=== PATIENT | male | born 1970 | race Caucasian/White ===

== ENCOUNTER 2020-06-26 14:35 | Emergency (ER) | payer OTHER, SELFPAY ==
[2020-06-26 15:52] VITALS: BP 138/78; PULSE 89; RESP 18; TEMP 36.7; O2SAT 98; BMI 43.5
--- NOTE | 2020-06-26 16:32 | ED.DENTAL ---
HPI - Dental/Oral General Chief complaint: Dental/Oral Stated complaint: dental pain Time Seen by Provider: 06/26/20 16:32 Source: patient Mode of arrival: ambulatory Limitations: no limitations History of Present Illness HPI Narrative: 50 y/o male presenting with right upper tooth pain after eating chips today. He states he thinks he has a chip stuck in his tooth or he cracked a filling. He tried to floss in between the teeth but it only caused bleeding. He called his dentist but they were closed today. MD Complaint: tooth pain Location: Tooth # (2) Onset (ago): hour(s) (6) Duration: constant Severity: moderate Relieving factors: nothing Exacerbating factors: nothing Context: history of dental caries, trauma (mechanism) (eating sharp chips ) and poor dental care Treatment prior to arrival: none Related Data Home Medications Medication Instructions Recorded Confirmed atorvastatin 40 mg tablet mg PO 06/12/20 06/12/20 blood sugar diagnostic #10 ea 06/12/20 06/12/20 clotrimazole-betamethasone 1 1 applic TOPICAL BID 06/12/20 06/12/20 %-0.05 % topical cream empagliflozin 25 mg tablet 25 mg PO DAILY 06/12/20 06/12/20 lancets 28 gauge #100 ea 06/12/20 06/12/20 sitagliptin 100 mg tablet 100 mg PO DAILY 06/12/20 06/12/20 Previous Rx's Medication Instructions Recorded cholecalciferol (vitamin D3) 50 50 mcg PO DAILY 30 Days #30 cap 05/12/20 mcg (2,000 unit) capsule gabapentin 100 mg capsule 100 mg PO BEDTIME 30 Days #30 cap 05/12/20 lisinopril 20 mg tablet 20 mg PO DAILY #30 tab 05/12/20 pioglitazone 45 mg tablet 45 mg PO DAILY 30 Days #30 tab 05/12/20 ibuprofen 600 mg PO Q8H PRN #20 tab 06/26/20 tramadol 50 mg PO Q6H PRN #10 tab 06/26/20 Allergies Allergy/AdvReac Type Severity Reaction Status Date / Time metformin Allergy Unknown Unknown Verified 06/12/20 11:33 Review of Systems Review of Systems: Constitutional: No Fever, No Chills ENT/Mouth: No sore throat, No Rhinorrhea, No Swallowing Difficulty Cardiovascular: No Chest Pain, No SO Respiratory: No Cough, No Sputum Gastrointestinal: No Nausea, No Vomiting, No Diarrhea, No abdominal Pain Skin: No Skin Lesions, No rash Neuro: No Headache Heme/Lymph: No Lymphadenopathy PMFSH Past Medical History Attestation statement: The following information was validated with the patient. Medical History Diabetes type 2, uncontrolled Diabetic neuropathy associated with type 2 diabetes mellitus Hyperlipidemia Hypertension Vitamin D deficiency Surgical History History of tonsillectomy Family History Family History (Updated 05/26/20 @ 13:54 by Lexii Link [facility]) Father Lung cancer Mother Pacemaker Maternal Grandmother Diabetes Brother CAD (coronary artery disease) Sister Hypertension Social History Social History (Updated 06/12/20 @ 11:39 by Marii Torre [facility]) Alcohol intake: never Smoking Status: Never smoker Smoked in Last 30 Days: No Use of substances other than those prescribed or required for medical reasons: No Advance Directives: No Advance Directives Information Provided: Yes Physical Exam Vital Signs: Vital Signs: Last Vital Signs Temp 98.0 F 06/26/20 15:52 Pulse 89 06/26/20 15:52 Resp 18 06/26/20 15:52 BP 138/78 06/26/20 15:52 Pulse Ox 98 06/26/20 15:52 Body Mass Index 43.5 Appearance: Alert. Oriented X3. No acute distress. HEENT: normal inspection. Lips and oral mucosa are moist and pink. upper tooth #2 with silver filling, posterior aspect with small avulsed area missing. tender to touch, no associated gingival swelling or tenderness. No palpable abscess. Respiratory: No respiratory distress. Skin: Skin warm and dry. Normal skin color. Normal skin turgor. No rashes. Neuro: Oriented X 3. Non-focal Course Course Course Narrative: 50 y/o male here with chipped tooth after eating chips. No signs of infection. He will call his dentist on Monday. Short coarse of tramadol prescribed to manage pain over the weekend. Critical Care Time Critical Care Time Critical Care Time: No Discharge Plan Discharge Clinical Impression: Fracture of tooth Qualifiers: Encounter type: initial encounter Fracture type: closed Qualified Code(s): S02.5XXA - Fracture of tooth (traumatic), initial encounter for closed fracture Patient Disposition: Home, Self-Care Instructions: Acute Dental Trauma (ED), Toothache (ED) Additional Instructions: Take the prescribed medications as needed for pain. Follow up with your dentist 1st thing on Monday. Avoid cold and hot foods. Use topical Orajel as needed for pain. Prescriptions: New ibuprofen 600 mg tablet 600 mg PO Q8H PRN (Reason: pain) Qty: 20 RF: 0 tramadol 50 mg tablet 50 mg PO Q6H PRN (Reason: pain) Qty: 10 RF: 0 No Action cholecalciferol (vitamin D3) 50 mcg (2,000 unit) capsule 50 mcg PO DAILY 30 Days Qty: 30 RF: 2 gabapentin 100 mg capsule 100 mg PO BEDTIME 30 Days Qty: 30 RF: 2 lisinopril 20 mg tablet 20 mg PO DAILY Qty: 30 RF: 2 pioglitazone 45 mg tablet 45 mg PO DAILY 30 Days Qty: 30 RF: 2 Jardiance 25 mg tablet 25 mg PO DAILY RF: 0 Januvia 100 mg tablet 100 mg PO DAILY RF: 0 atorvastatin 40 mg tablet PO RF: 0 clotrimazole-betamethasone 1-0.05 % cream 1 applic topical BID RF: 0 (DME) FreeStyle Lite Strips Strip See Rx Instructions ea Not Applicable .MEDSUPPLY Qty: 10 RF: 0 (DME) lancets 28 gauge misc See Rx Instructions ea topical QID Qty: 100 RF: 0
== END 2020-06-26 17:34 | disposition home or self-care (01) ==
PROVIDERS: Emergency Provider Emergency Medicine Emergency Medical Services; PCP Internal Medicine
DX: S02.5XXA Fracture of tooth (traumatic), initial encounter for closed fracture (principal); I10 Essential (primary) hypertension; X58.XXXA Exposure to other specified factors, initial encounter; Y93.9 Activity, unspecified; Y92.9 Unspecified place or not applicable; Y99.9 Unspecified external cause status; Z79.899 Other long term (current) drug therapy
CPT/HCPCS: 99283; 99284

== ENCOUNTER 2020-12-09 13:51 | Outpatient (REF) | payer OTHER, SELFPAY ==
--- NOTE | ~2020-12-09 | XR_ITS ---
EXAMINATION: XR HIP, LEFT CLINICAL INFORMATION: Pain COMPARISON: None TECHNIQUE: Two views of the left hip. FINDINGS: Bones and soft tissues are normal. No fracture. Alignment is anatomic. Hip joint space is maintained. XR/XR hip LT min 2V IMPRESSION: Normal left hip.
== END 2020-12-09 13:52 | disposition home or self-care (01) ==
LOC: HO.XRAY 13:51
PROVIDERS: PCP Internal Medicine; Visit Provider Internal Medicine
DX: M25.552 Pain in left hip (principal)
CPT/HCPCS: 73502

== ENCOUNTER 2020-12-14 13:39 | Outpatient (REF) | payer OTHER, SELFPAY ==
[2020-12-14 14:47] LABS: Hematocrit 45.8 % (42-52); Hemoglobin 15.4 g/dl (14.0-18.0); Mean Corpuscular HGB Conc 33.6 g/dl (31.0-36.0); Mean Corpuscular Hemoglobin 31.5 pg (27.0-33.0); Mean Corpuscular Volume 93.7 fL (80-98); Platelet Count 247 X10*3/uL (160-400); Red Blood Count 4.89 X10*6/uL (4.60-5.80); Red Cell Distribution Width 12.5 % (11.0-16.0)
[2020-12-14 15:22] LABS: Creatinine Urine 61.26 mg/dL; Microalbumin Urine < 5.0 mg/L
[2020-12-14 15:22] LABS: Alanine Aminotransferase 24 U/L (0-40); Albumin Level 4.6 g/dL (3.5-5.0); Alkaline Phosphatase 67 U/L (39-117); Anion Gap 14 (12-20); Aspartate Amino Transferase 20 U/L (5-37); Bilirubin Total 0.7 mg/dL (0.0-1.0); Blood Urea Nitrogen 28 mg/dL (9-16); Calcium 10.1 mg/dL (8.4-10.2); Carbon Dioxide 28 mmol/L (22-29); Chloride 100 mmol/L (96-108); Cholesterol 155 mg/dL; Estimated Glomerular Filt Rate > 60; Glucose Random 195 mg/dL (60-115); HDL Cholesterol 42 mg/dL; LDL Cholesterol Calculated 71 mg/dl; Potassium 4.9 mmol/L (3.3-5.1); Sodium 137 mmol/L (135-145); Total Protein 7.1 g/dL (6.5-8.0); Triglycerides 214 mg/dL
[2020-12-14 15:43] LABS: Free T4 (Free Thyroxine) 1.01 ng/dL (0.71-1.85); Thyroid Stimulating Hormone 1.57 uIU/mL (0.32-4.0); Vitamin D 25-OH Total 30.8 ng/mL (>30)
[2020-12-14 15:47] LABS: Vitamin B12 310 pg/mL (200-900)
[2020-12-15 12:01] LABS: LDL Cholesterol Direct 84 mg/dL (<100)
== END 2020-12-14 13:40 | disposition home or self-care (01) ==
LOC: HO.LAB 13:39
PROVIDERS: PCP Internal Medicine; Referring Provider Internal Medicine; Visit Provider Internal Medicine Endocrinology, Diabetes & Metabolism
DX: E11.65 Type 2 diabetes mellitus with hyperglycemia (principal); E11.40 Type 2 diabetes mellitus with diabetic neuropathy, unspecified; M25.519 Pain in unspecified shoulder; M25.559 Pain in unspecified hip; M25.569 Pain in unspecified knee; E78.5 Hyperlipidemia, unspecified; I10 Essential (primary) hypertension; E55.9 Vitamin D deficiency, unspecified; Z79.899 Other long term (current) drug therapy; Z79.84 Long term (current) use of oral hypoglycemic drugs
CPT/HCPCS: 36415; 80053; 80061; 82043; 82306; 82607; 82947; 83721; 84439; 84443; 85027; 99212

== ENCOUNTER 2022-11-07 11:53 | Outpatient (REF) | payer OTHER, SELFPAY ==
--- NOTE | ~2022-11-07 | XR_ITS ---
EXAMINATION: XR LUMBOSACRAL SPINE CLINICAL INFORMATION: Dorsalgia. COMPARISON: Radiographs dated 521. TECHNIQUE: AP and lateral views of the lumbar spine and lateral view of the lumbosacral junction. FINDINGS: There is bony demineralization. Vertebral body heights are normal. There is a mild lumbar levoscoliosis. There is mild rightward disc space narrowing at L4-L5. The remaining disc spaces are well-maintained. No acute fracture or spondylolisthesis is seen. There is multi-level mild lumbar spondylosis. The posterior elements are intact. The paravertebral soft tissues are unremarkable. XR/XR lumbar spine 2-3V IMPRESSION: 1. There is a mild lumbar levoscoliosis. 2. There is mild degenerative disc disease at L4-L5. 3. There is multi-level mild lumbar spondylosis.
== END 2022-11-07 11:54 | disposition home or self-care (01) ==
LOC: HO.XRAY 11:53
PROVIDERS: PCP Internal Medicine; Visit Provider Internal Medicine
DX: M54.9 Dorsalgia, unspecified (principal)
CPT/HCPCS: 72100

== ENCOUNTER 2023-03-23 10:26 | Outpatient (AMB) | payer OTHER, SELFPAY ==
--- NOTE | 2023-03-23 10:28 | MHC.PC.OV ---
Vital Signs 03/23/23 10:30 Height 6 ft 1 in Weight 273 lb 4 oz BMI 36.0 BP 120/60 Blood Pressure Location Rt brachial Position Sitting Pulse 100 Pulse Source Pulse Oximeter Pulse Oximetry (%) 95 Oxygen Delivery Method Room Air Intake Visit Reasons: 3M Follow up Intake Note: Patient is here to follow up on DM, Hyperlipidemia, HTN. Complaint of hip pain. Recruitment Manager Required: No Prefinish Operator: Present Accompanied by: Mother Allergies metformin Allergy (Unknown, Verified 03/23/23 10:30) Unknown Medication List - Last Reconciled 03/24/23 by Panda Carreon MD atorvastatin 40 mg PO DAILY 30 days blood sugar diagnostic ([employer]Touch Verio test strips) Freestyle lite test strips Test blood glucose 4xper day. #150 strips per 30days blood-glucose meter ([employer] BlueTouch Verio Flex Meter) to test blood glucose 4x/day cholecalciferol (vitamin D3) 50 mcg PO DAILY 30 days clotrimazole-betamethasone 1-0.05 % 1 appl topical BID 2 weeks empagliflozin (Jardiance) 25 mg PO QAM 30 days gabapentin 100 mg PO BEDTIME ibuprofen 600 mg PO Q8H PRN lancets (Total [employer] Delica Lancets) 4x/day lancets ([employer] BlueTouch SureSoft Lancing Devices) As directed Test blood glucose 4x per day. lisinopril 20 mg PO DAILY 30 days naproxen 500 mg PO BID pioglitazone 45 mg PO DAILY 30 days ProAir HFA 90 mcg/actuation (albuterol sulfate) 2 puffs inhalation Q4-6H PRN NS ProAir RespiClick 90 mcg/actuation (albuterol sulfate) 2 inhalations inhalation Q4-6H PRN NS repaglinide 0.5 mg PO .Once a day 30 days sitagliptin phosphate (Januvia) 100 mg PO DAILY tramadol 50 mg PO Q6H PRN Tobacco use date assessed: 03/23/23 Dental Screening Dental Screen Date: 03/23/23 Did you have a dental visit in the last 12 months?: Yes Did you have a dental problem in the last 6 months where you did not have access to dental care?: No Was dental information given to patient?: Patient has dentist HPI 3M Follow up HPI Details hyperlipidemia DM and HTN; complisnat with meds; due for labs [facility] Medical History (Updated 04/20/22 @ 13:15 by Panda Carreon MD) Diabetes type 2, uncontrolled Diabetic neuropathy associated with type 2 diabetes mellitus Hyperlipidemia Hypertension Vitamin D deficiency Surgical History History of tonsillectomy Family History (Updated 03/23/23 @ 10:28 by JO ANN Vazquez) Father Lung cancer Mother Pacemaker Maternal Grandmother Diabetes Brother CAD (coronary artery disease) Sister Hypertension Sister Myocardial infarction Sister Hearing problem Social History Housing: Apartment Alcohol intake: never Patient Tobacco Use Status: Never used Tobacco Tobacco use type: Cigarette e-Cigarette/Vaping Use: Never Used Second Hand Smoke Exposure: No service: No Current occupational status: unemployed and disabled Cognitive needs: No Hearing needs: No Vision needs: No Questionnaire PHQ-9 Over the last 2 weeks, how often have you been bothered by any of the following problems? Depression Screening Interpretation: Negative Source: Developed by Drs. Tony Kelly, Maricarmen eY, Jose Alvares and colleagues, with an educational osiel from [employer]. Thrive Questionnaire Date Thrive assessed: 11/07/22 Currently or been in a relationship where the following occur: no concerns reported GRICELDA-7 AMB Questionnaire GRICELDA-7 Date GRICELDA - 7 assessed: 11/07/22 Source: Developed by Drs. Tony Kelly, Maricarmen Ye, Jose Alvares and colleagues, with an educational osiel from [employer]. Review of Systems Const Denies chills, Denies headache(s) and Denies weight loss ENT Denies headache(s) Card Denies chest pain, Denies syncope, Denies irregular heart rhythm and Denies dyspnea Resp Denies chest congestion, Denies cough and Denies dyspnea GI Denies abdominal pain, Denies change in stool character, Denies nausea and Denies vomiting Musc Denies deformity and Denies joint swelling Neuro Denies syncope and Denies headache(s) Physical exam (Primary Care) Vital Signs: Last Vital Signs Pulse 100 03/23/23 10:30 BP 120/60 03/23/23 10:30 Pulse Ox 95 03/23/23 10:30 Oxygen Delivery Method Room Air 03/23/23 10:30 BMI result Body Mass Index 36.0 Tobacco/Smoking Status: Tobacco use Status Tobacco use date assessed 03/23/23 03/23/23 10:35 Patient Tobacco Use Status Never used Tobacco 03/23/23 10:35 Tobacco use type Cigarette 03/23/23 10:35 e-Cigarette/Vaping Use Never Used 03/23/23 10:35 Depression Screening Interpretation: Negative Thrive Assessment: Date of Thrive Assessment Date Thrive assessed 11/07/22 03/23/23 10:35 Currently or been in a relationship where the following occur: no concerns reported Const General: cooperative, healthy appearing and no acute distress Resp Effort & Inspection: normal respiratory effort Auscultation: clear to auscultation bilaterally Percussion: percussion normal Cardio Jugular venous distension: no JVD Rate: regular rate Rhythm: regular rhythm GI Inspection: Yes normal to inspection Assessment and Plan Assessment & Plan (1) Diabetes mellitus with coincident hypertension: Code(s): E11.9 - Type 2 diabetes mellitus without complications; I10 - Essential (primary) hypertension Plan: stable; do labs (2) Hyperlipidemia: Code(s): E78.5 - Hyperlipidemia, unspecified Qualifiers: Hyperlipidemia type: pure hypercholesterolemia Qualified Code(s): E78.00 - Pure hypercholesterolemia, unspecified Plan: stable; same meds (3) Hypertension: Code(s): I10 - Essential (primary) hypertension Qualifiers: Hypertension type: essential hypertension Qualified Code(s): I10 - Essential (primary) hypertension Plan: stable; same meds Orders: Orders Comprehensive [place]. Panel Fast 03/23/23 N28.9 - Disorder of kidney and ureter, unspecified Hemoglobin A1c 03/23/23 R73.9 - Hyperglycemia, unspecified Lipid Panel 03/23/23 E78.5 - Hyperlipidemia, unspecified Thyroid Stimulating Hormone 03/23/23 E03.9 - Hypothyroidism, unspecified Microalbumin, Random (w Creat) 03/23/23 E11.69 - Type 2 diabetes mellitus with other specified complication, E66.01 - Morbid (severe) obesity due to excess calories Complete Blood Count Auto Diff 03/23/23 D64.9 - Anemia, unspecified Coding Level of Care Code Est Pt Level 4 (17888) Diagnoses Diabetes mellitus with coincident hypertension E11.9; I10 Hyperlipidemia E78.00 Hyperlipidemia type: pure hypercholesterolemia Hypertension I10 Hypertension type: essential hypertension
[2023-03-23 10:30] VITALS: BP 120/60; PULSE 100; O2SAT 95; BMI 36.0
== END 2023-03-23 10:47 | disposition home or self-care (01) ==
PROVIDERS: PCP Internal Medicine; Visit Provider Internal Medicine
DX: E11.9 Type 2 diabetes mellitus without complications (principal); I10 Essential (primary) hypertension; E78.00 Pure hypercholesterolemia, unspecified
CPT/HCPCS: 99214

== ENCOUNTER 2023-03-23 10:56 | Outpatient (REF) | payer OTHER, SELFPAY ==
--- NOTE | ~2023-03-23 | XR_ITS ---
EXAMINATION: XR BILATERAL HIPS WITH AP PELVIS CLINICAL INFORMATION: Pain. COMPARISON: Left hip radiographs dated 07/01/2010 and 12/09/2020. TECHNIQUE: AP view of the pelvis and AP and frog-leg lateral views of each hip were obtained. FINDINGS: No fracture. There is a minimal accessory ossification center situated lateral to the left acetabular roof. Hip joint spaces are maintained. Alignment is anatomic. Sacroiliac joints and pubic symphysis are normal. No abnormal soft tissue calcifications. XR/XR hip BI w PEL1V IMPRESSION: Normal pelvis and hips.
== END 2023-03-23 10:57 | disposition home or self-care (01) ==
LOC: HO.XRAY 10:56
PROVIDERS: PCP Internal Medicine; Visit Provider Internal Medicine
DX: M25.552 Pain in left hip (principal); M25.551 Pain in right hip
CPT/HCPCS: 73521

== ENCOUNTER 2023-05-01 10:39 | Outpatient (REF) | payer OTHER, SELFPAY ==
[2023-05-01 11:12] LABS: MANUAL DIFF FLAG NO
[2023-05-01 12:02] LABS: Basophils Percent Auto 0.1 % (0-2); Eosinophils Absolute Auto 0.1 X10*3/uL (0.0-0.4); Eosinophils Percent Auto 1.3 % (0-4); Hematocrit 47.5 % (42.0-52.0); Hemoglobin 15.9 g/dl (14.0-18.0); Imm Gran Abs Auto 0.02 X10*3/uL (0.00-0.03); Imm Gran Pct Auto 0.3 % (0.0-0.4); Lymphocytes Absolute Auto 1.9 X10*3/uL (1.2-4.9); Mean Corpuscular HGB Conc 33.5 g/dl (31.0-36.0); Mean Corpuscular Hemoglobin 30.8 pg (27.0-33.0); Mean Corpuscular Volume 92.1 fL (80.0-98.0); Mean Platelet Volume 10.4 fL (9.4-12.4); Monocytes Absolute Auto 0.6 X10*3/uL (0.1-1.2); Neutrophils Absolute Auto 4.5 x10*3/uL (2.0-8.3); Neutrophils Percent Auto 63.3 % (45-73); Platelet Count 225 X10*3/uL (160-400); Red Blood Count 5.16 X10*6/uL (4.60-5.80); Red Cell Distribution Width 12.7 % (11.0-16.0); White Blood Count 7.2 X10*3/uL (4.8-10.8)
[2023-05-01 12:10] LABS: Estimated Average Glucose 160 mg/dL; Hemoglobin A1c % 7.2 % (<6.0)
[2023-05-01 12:57] LABS: Alanine Aminotransferase 17 U/L (0-40); Albumin Level 4.4 g/dL (3.5-5.0); Alkaline Phosphatase 65 U/L (39-117); Anion Gap 13 (12-20); Aspartate Amino Transferase 20 U/L (5-37); Bilirubin Total 0.9 mg/dL (0.0-1.0); Blood Urea Nitrogen 23 mg/dL (9-16); Calcium 9.3 mg/dL (8.4-10.2); Carbon Dioxide 25 mmol/L (22-29); Chloride 103 mmol/L (96-108); Cholesterol 127 mg/dL (<200); Estimated Glomerular Filt Rate > 60; Glucose Fasting 158 mg/dL (60-99); HDL Cholesterol 37 mg/dL (>40); LDL Cholesterol Calculated 70 mg/dL (<100); Potassium 4.1 mmol/L (3.3-5.1); Sodium 137 mmol/L (135-145); Total Protein 6.9 g/dL (6.5-8.0); Triglycerides 103 mg/dL (<150)
[2023-05-01 13:00] LABS: Thyroid Stimulating Hormone 1.16 uIU/mL (0.32-4.0)
[2023-05-01 13:59] LABS: Creatinine Urine 124.44 mg/dL; Microalbumin Urine < 5.0 mg/L
== END 2023-05-01 10:40 | disposition home or self-care (01) ==
LOC: HO.LAB 10:39
PROVIDERS: PCP Internal Medicine; Visit Provider Internal Medicine
DX: E66.01 Morbid (severe) obesity due to excess calories (principal); E78.5 Hyperlipidemia, unspecified; N28.9 Disorder of kidney and ureter, unspecified; D64.9 Anemia, unspecified; E03.9 Hypothyroidism, unspecified; E11.65 Type 2 diabetes mellitus with hyperglycemia
CPT/HCPCS: 36415; 80053; 80061; 82043; 82570; 83036; 84443; 85025

== ENCOUNTER 2023-11-14 13:40 | Outpatient (AMB) | payer OTHER, SELFPAY ==
[2023-11-14 13:42] VITALS: BP 146/80; PULSE 68; O2SAT 97; BMI 35.0
--- NOTE | 2023-11-14 13:42 | A.OFFPC_ITS ---
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 #150 strips per 30days blood-glucose meter ([employer] PharmaceuticalsTouch Verio Flex Meter) to test blood glucose 4x/day cholecalciferol (vitamin D3) 50 mcg PO DAILY 30 days clotrimazole-betamethasone 1-0.05 % 1 appl topical BID 2 weeks empagliflozin (Jardiance) 25 mg PO QAM 30 days gabapentin 100 mg PO BEDTIME ibuprofen 600 mg PO Q8H PRN lancets 4x/day lancets (Seam[employer]Soft Lancing Devices) As directed Test blood glucose 4x per day. lisinopril 20 mg PO DAILY 30 days naproxen 500 mg PO BID pioglitazone 45 mg PO DAILY 30 days ProAir HFA 90 mcg/actuation (albuterol sulfate) 2 puffs inhalation Q4-6H PRN NS ProAir RespiClick 90 mcg/actuation (albuterol sulfate) 2 inhalations inhalation Q4-6H PRN NS repaglinide 0.5 mg PO .Once a day 30 days sitagliptin phosphate (Januvia) 100 mg PO DAILY tramadol 50 mg PO Q6H PRN triamcinolone acetonide 0.5% 1 appl topical TID Tobacco use date assessed: 11/14/23 Dental Screening Dental Screen Date: 11/14/23 HPI medication follow up HPI Details DM hyperlipidemia and hypertension; compliant with meds REPLACED BY [facility] Medical History Hyperlipidemia Diabetes type 2, uncontrolled Diabetic neuropathy associated with type 2 diabetes mellitus Hypertension Vitamin D deficiency Surgical History History of tonsillectomy Family History Father Lung cancer Mother Pacemaker Maternal Grandmother Diabetes Brother CAD (coronary artery disease) Sister Hypertension Sister Myocardial infarction Sister Hearing problem Social History Housing: Apartment Alcohol intake: never Patient Tobacco Use Status: Never used Tobacco Tobacco use type: Cigarette e-Cigarette/Vaping Use: Never Used Second Hand Smoke Exposure: No service: No Current occupational status: unemployed and disabled Cognitive needs: No Hearing needs: No Vision needs: No Questionnaire Thrive Questionnaire Date Thrive assessed: 11/14/23 I am a: Patient What is your living situation today?: I have a steady place to live Within the past 12 months, did the food you bought not last and you didn't have the money to get more?: Never true Within the past 12 months, did you worry whether your food would run out before you got money to buy more?: Never true Do you have trouble paying for medicines?: No Do you have trouble getting transportation to medical appointments?: No Do you have trouble paying your heating and electricity bill?: No Do you have trouble taking care of your child, family member or friend?: No Do you have trouble with day-to-day activities such as bathing, preparing meals, shopping, managing finances, etc.?: No Are you currently unemployed and looking for a job?: No Are you interested in more education?: No Please select the resources that you would like help with: None Currently or been in a relationship where the following occur: no concerns reported THRIVE Score: 0 AUDIT C Alcohol Use Questionnaire (AUDIT-C) 1. How often do you have a drink containing alcohol?: Never 2. How many drinks containing alcohol do you have on a typical day when you are drinking?: 1 or 2 (none) 3. How often do you have six or more drinks on one occasion?: Never Total Score: 0 Score Reviewed/Action Taken: Yes GRICELDA-7 AMB Questionnaire GRICELDA-7 Date GRICELDA - 7 assessed: 11/14/23 Feeling nervous, anxious, or on edge: 0 = Not at all Not being able to stop or control worryin = Not at all Worrying too much about different things: 0 = Not at all Trouble relaxin = Not at all Being so restless that it is hard to sit still: 0 = Not at all Becoming easily annoyed or irritable: 0 = Not at all Feeling afraid as if something awful might happen: 0 = Not at all Total GRICELDA-7 score (0-4 normal; 5-9 mild; 10-14 moderate; 15-21 severe): 0 Source: Developed by Drs. Tony Kelly, Maricarmen Ye, Jose Alvares and colleagues, with an educational osiel from [employer]. GRICELDA-7 Assessment Billing GRICELDA-7 Assessment Tool: GRICELDA-7 Assessment 75477 Review of Systems Const Denies chills, Denies headache(s) and Denies weight loss ENT Denies headache(s) Card Denies chest pain, Denies syncope, Denies irregular heart rhythm and Denies dyspnea Resp Denies chest congestion, Denies cough and Denies dyspnea GI Denies abdominal pain, Denies change in stool character, Denies nausea and Denies vomiting Musc Denies deformity and Denies joint swelling Neuro Denies syncope and Denies headache(s) Physical exam (Primary Care) Vital Signs: Last Vital Signs Pulse 68 11/14/23 13:42 BP 146/80 H 11/14/23 13:42 Pulse Ox 97 11/14/23 13:42 Oxygen Delivery Method Room Air 11/14/23 13:42 BMI result Body Mass Index 35.0 Tobacco/Smoking Status: Tobacco use Status Tobacco use date assessed 11/14/23 11/14/23 13:44 Patient Tobacco Use Status Never used Tobacco 11/14/23 13:44 Tobacco use type Cigarette 11/14/23 13:44 e-Cigarette/Vaping Use Never Used 11/14/23 13:44 Thrive Assessment: Date of Thrive Assessment Date Thrive assessed 11/14/23 11/14/23 13:44 Currently or been in a relationship where the following occur: no concerns reported Const General: cooperative, comfortable, no acute distress and alert Neck Neck: Yes no lymphadenopathy Thyroid: Thyroid normal Resp Effort & Inspection: normal respiratory effort Auscultation: clear to auscultation bilaterally Percussion: percussion normal Cardio Jugular venous distension: no JVD Palpation: normal PMI Rate: regular rate Rhythm: regular rhythm Heart sounds: S1 normal heart sound present and S2 normal heart sound present GI Inspection: Yes normal to inspection Palpation (GI): No hepatosplenomegaly present Skin General skin exam: no rashes or lesions noted Extrem General: Yes no clubbing, cyanosis or edema Results AMB Hemoglobin A1c AMB Hemoglobin A1c 7.7 % Last Edit by JO ANN Desouza on 11/14/23 14:05 Results Reviewed Results Reviewed: Laboratory Last Values Hgb A1c (Clinic) 7.7 % (4.0-6.0) H 11/14/23 13:54 Assessment and Plan Assessment & Plan (1) Diabetes mellitus with coincident hypertension: Code(s): E11.9 - Type 2 diabetes mellitus without complications; I10 - Essential (primary) hypertension Plan: stable; same rx (2) Hyperlipidemia: Code(s): E78.5 - Hyperlipidemia, unspecified Qualifiers: Hyperlipidemia type: pure hypercholesterolemia Qualified Code(s): E78.00 - Pure hypercholesterolemia, unspecified Plan: stable; same rx (3) Hypertension: Code(s): I10 - Essential (primary) hypertension Qualifiers: Hypertension type: essential hypertension Qualified Code(s): I10 - Essential (primary) hypertension Plan: stable; same rx Orders: Orders Lipid Panel 11/14/23 Z13.220 - Encounter for screening for lipoid disorders Complete Blood Count Auto Diff 11/14/23 Z13.0 - Encounter for screening for diseases of the blood and blood-forming organs and certain disorders involving the immune mechanism Hemoglobin A1c 11/14/23 R73.9 - Hyperglycemia, unspecified AMB Hemoglobin A1c 11/14/23 E11.42 - Type 2 diabetes mellitus with diabetic polyneuropathy Thyroid Stimulating Hormone 11/14/23 Z13.29 - Encounter for screening for other suspected endocrine disorder Comprehensive [place]. Panel Fast 11/14/23 Z13.9 - Encounter for screening, unspecified Coding Level of Care Code Est Pt Level 4 (27260) Diagnoses Diabetes mellitus with coincident hypertension E11.9; I10 Pure hypercholesterolemia E78.00 Hyperlipidemia type: pure hypercholesterolemia Essential hypertension I10 Hypertension type: essential hypertension Additional Codes GRICELDA-7 Assessment Billing - GRICELDA-7 Assessment Tool: GRICELDA-7 Assessment [id number] ([id number])
== END 2023-11-14 14:02 | disposition home or self-care (01) ==
PROVIDERS: PCP Internal Medicine; Visit Provider Internal Medicine
DX: E11.42 Type 2 diabetes mellitus with diabetic polyneuropathy (principal)
CPT/HCPCS: 83036; 99214

== ENCOUNTER 2024-01-09 10:27 | Outpatient (REF) | payer OTHER, SELFPAY ==
[2024-01-09 10:44] LABS: MANUAL DIFF FLAG NO
[2024-01-09 11:09] LABS: Basophils Percent Auto 0.4 % (0-2); Eosinophils Absolute Auto 0.2 X10*3/uL (0.0-0.4); Eosinophils Percent Auto 2.4 % (0-4); Hematocrit 47.4 % (42.0-52.0); Hemoglobin 16.1 g/dl (14.0-18.0); Imm Gran Abs Auto 0.02 X10*3/uL (0.00-0.03); Imm Gran Pct Auto 0.3 % (0.0-0.4); Lymphocytes Absolute Auto 2.2 X10*3/uL (1.2-4.9); Lymphocytes Percent Auto 27.7 % (20-40); Mean Corpuscular Hemoglobin 30.9 pg (27.0-33.0); Monocytes Absolute Auto 0.6 X10*3/uL (0.1-1.2); Monocytes Percent Auto 7.1 % (2-11); Neutrophils Percent Auto 62.1 % (45-73); Platelet Count 246 X10*3/uL (160-400); Red Blood Count 5.21 X10*6/uL (4.60-5.80); Red Cell Distribution Width 12.3 % (11.0-16.0)
[2024-01-09 11:16] LABS: Estimated Average Glucose 174 mg/dL; Hemoglobin A1c % 7.7 % (<6.0)
[2024-01-09 12:26] LABS: Alanine Aminotransferase 19 U/L (0-40); Albumin Level 4.5 g/dL (3.5-5.0); Alkaline Phosphatase 81 U/L (39-117); Anion Gap 13 (12-20); Aspartate Amino Transferase 21 U/L (5-37); Bilirubin Total 0.5 mg/dL (0.0-1.0); Blood Urea Nitrogen 19 mg/dL (9-16); Calcium 9.9 mg/dL (8.4-10.2); Carbon Dioxide 28 mmol/L (22-29); Chloride 103 mmol/L (96-108); Cholesterol 146 mg/dL (<200); Estimated Glomerular Filt Rate > 60; Glucose Fasting 207 mg/dL (60-99); HDL Cholesterol 37 mg/dL (>40); LDL Cholesterol Calculated 79 mg/dL (<100); Potassium 4.8 mmol/L (3.3-5.1); Sodium 139 mmol/L (135-145); Thyroid Stimulating Hormone 1.78 uIU/mL (0.32-4.0); Total Protein 7.4 g/dL (6.5-8.0); Triglycerides 151 mg/dL (<150)
== END 2024-01-09 10:28 | disposition home or self-care (01) ==
LOC: HO.LAB 10:27
PROVIDERS: PCP Internal Medicine; Visit Provider Internal Medicine
DX: Z13.220 Encounter for screening for lipoid disorders (principal); Z13.0 Encounter for screening for diseases of the blood and blood-forming organs and certain disorders involving the immune mechanism; R73.9 Hyperglycemia, unspecified; Z13.29 Encounter for screening for other suspected endocrine disorder; Z13.9 Encounter for screening, unspecified
CPT/HCPCS: 36415; 80053; 80061; 83036; 84443; 85025

== ENCOUNTER 2024-01-29 13:35 | Outpatient (AMB) | payer OTHER, SELFPAY ==
[2024-01-29 13:36] VITALS: BP 126/72; PULSE 90; O2SAT 95; BMI 34.6
--- NOTE | 2024-01-29 13:36 | MHC.PC.OV ---
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: No Spooling Operator: Not Required per policy Accompanied by: Self / Same As Patient Allergies metformin Allergy (Unknown, Verified 01/29/24 13:36) Unknown Tobacco use date assessed: 11/14/23 Dental Screening Dental Screen Date: 11/14/23 HPI follow up HPI Details Diabetes; htn and hyperlipidemia; poor compliance; PFSH Medical History Hyperlipidemia Diabetes type 2, uncontrolled Diabetic neuropathy associated with type 2 diabetes mellitus Hypertension Vitamin D deficiency Surgical History History of tonsillectomy Family History Father Lung cancer Mother Pacemaker Maternal Grandmother Diabetes Brother CAD (coronary artery disease) Sister Hypertension Sister Myocardial infarction Sister Hearing problem Social History Housing: Apartment Alcohol intake: never Patient Tobacco Use Status: Never used Tobacco Tobacco use type: Cigarette e-Cigarette/Vaping Use: Never Used Second Hand Smoke Exposure: No service: No Current occupational status: unemployed and disabled Cognitive needs: No Hearing needs: No Vision needs: No Questionnaire PHQ-9 Over the last 2 weeks, how often have you been bothered by any of the following problems? 1. Little interest or pleasure in doing things: not at all 2. Feeling down, depressed, or hopeless: not at all 3. Trouble falling or staying asleep, or sleeping too much: not at all 4. Feeling tired or having little energy: not at all 5. Poor appetite or overeating: not at all 6. Feeling bad about yourself - or that you are a failure or have let yourself or your family down: not at all 7. Trouble concentrating on things, such as reading the newspaper or watching television: not at all 8. Moving or speaking so slowly that other people could have noticed. Or the opposite - being so fidgety or restless that you have been moving around a lot more than usual: not at all 9. Thoughts that you would be better off or of hurting yourself in some way: not at all Total score: 0 Source: Developed by Drs. Tony Kelly, Maricarmen Ye, Jose Alvares and colleagues, with an educational osiel from [employer]. Thrive Questionnaire Date Thrive assessed: 11/14/23 GRICELDA-7 AMB Questionnaire GRICELDA-7 Date GRICELDA - 7 assessed: 11/14/23 Source: Developed by Drs. Tony Kelly, Maricarmen Ye, Jose Alvares and colleagues, with an educational osiel from [employer]. Review of Systems Const Denies chills, Denies headache(s) and Denies weight loss ENT Denies headache(s) Card Denies chest pain, Denies syncope, Denies irregular heart rhythm and Denies dyspnea Resp Denies chest congestion, Denies cough and Denies dyspnea GI Denies abdominal pain, Denies change in stool character, Denies nausea and Denies vomiting Musc Denies deformity and Denies joint swelling Neuro Denies syncope and Denies headache(s) Physical exam (Primary Care) Vital Signs: Last Vital Signs Pulse 90 01/29/24 13:36 BP 126/72 01/29/24 13:36 Pulse Ox 95 01/29/24 13:36 Oxygen Delivery Method Room Air 01/29/24 13:36 BMI result Body Mass Index 34.6 Tobacco/Smoking Status: Tobacco use Status Tobacco use date assessed 11/14/23 01/29/24 13:36 Patient Tobacco Use Status Never used Tobacco 01/29/24 13:36 Tobacco use type Cigarette 01/29/24 13:36 e-Cigarette/Vaping Use Never Used 01/29/24 13:36 PHQ-9: PHQ-9 Score PHQ-9: Total score 0 01/29/24 13:36 Thrive Assessment: Date of Thrive Assessment Date Thrive assessed 11/14/23 01/29/24 13:36 Const General: cooperative, comfortable, no acute distress and alert Neck Neck: Yes no lymphadenopathy Thyroid: Thyroid normal Resp Effort & Inspection: normal respiratory effort Auscultation: clear to auscultation bilaterally Percussion: percussion normal Cardio Jugular venous distension: no JVD Palpation: normal PMI Rate: regular rate Rhythm: regular rhythm Heart sounds: S1 normal heart sound present and S2 normal heart sound present GI Inspection: Yes normal to inspection Palpation (GI): No hepatosplenomegaly present Skin General skin exam: no rashes or lesions noted Extrem General: Yes no clubbing, cyanosis or edema Assessment and Plan Assessment & Plan (1) Diabetes mellitus with coincident hypertension: Code(s): E11.9 - Type 2 diabetes mellitus without complications; I10 - Essential (primary) hypertension Plan: improve eating habits (2) Hyperlipidemia: Code(s): E78.5 - Hyperlipidemia, unspecified Qualifiers: Hyperlipidemia type: pure hypercholesterolemia Qualified Code(s): E78.00 - Pure hypercholesterolemia, unspecified Plan: stable; same rx (3) Hypertension: Code(s): I10 - Essential (primary) hypertension Qualifiers: Hypertension type: essential hypertension Qualified Code(s): I10 - Essential (primary) hypertension Plan: stable; same rx Orders: Orders Lipid Panel Today Z13.220 - Encounter for screening for lipoid disorders Glucose Fasting Today R73.9 - Hyperglycemia, unspecified Hemoglobin A1c Today R73.9 - Hyperglycemia, unspecified Coding Level of Care Code Est Pt Level 4 (39132) Diagnoses Diabetes mellitus with coincident hypertension E11.9; I10 Pure hypercholesterolemia E78.00 Hyperlipidemia type: pure hypercholesterolemia Essential hypertension I10 Hypertension type: essential hypertension
== END 2024-01-29 13:49 | disposition home or self-care (01) ==
PROVIDERS: PCP Internal Medicine; Visit Provider Internal Medicine
DX: E11.9 Type 2 diabetes mellitus without complications (principal); I10 Essential (primary) hypertension; E78.00 Pure hypercholesterolemia, unspecified
CPT/HCPCS: 99214

== ENCOUNTER 2024-03-13 09:25 | Emergency (ER) | payer OTHER, SELFPAY ==
--- NOTE | ~2024-03-13 | XR_ITS ---
EXAMINATION: XR LUMBOSACRAL SPINE CLINICAL INFORMATION: Pain COMPARISON: TECHNIQUE: Three views of the lumbosacral spine. FINDINGS: Transitional lumbosacral anatomy with presence of 6 nonrib-bearing lumbar vertebra. For the purposes of this report, the lowest lumbar vertebra is considered to represent the L5 vertebra. This vertebra has a hypertrophied right-sided transverse process that articulates with the sacrum. There is chronic rotatory levoscoliosis of the lumbar spine, apex of curvature at L3. Compared to 11/07/2022, there appears to be further decrease in the L3-L4 disc space with vacuum disc phenomenon, endplate sclerosis and anterolateral traction osteophyte formation. No acute fracture or malalignment. Incidentally noted is an old 0.8 cm calcific density projecting over the upper abdomen on the lateral radiograph. XR/XR lumbar spine 2-3V IMPRESSION: * Transitional lumbosacral anatomy. * Chronic and apparent worsening of disc degenerative change at L3-L4 level. * There is chronic rotatory levoscoliosis of the lumbar spine.
[2024-03-13 09:36] VITALS: BP 128/74; PULSE 91; RESP 18; TEMP 37; O2SAT 96; BMI 33.4
--- NOTE | 2024-03-13 09:41 | ED.GENADULT ---
HPI - General Adult General Chief complaint: Extremity Problem Stated complaint: back/hip pain Time Seen by Provider: 03/13/24 09:41 Source: patient Mode of arrival: ambulatory Limitations: no limitations History of Present Illness ED Provider: Kirti Cordoba PA-C HPI narrative: 53 year old male with PMH of diabetes Type 2, Hypertension, Hyperlipidemia and hip pain presents today with right lower back/buttocks pain that radiates to his right posterior hip. Patient denies any injury or trauma to the area. States about 2 weeks ago the pain began, and is radiating to his right hip and feels like a stabbing and sharp pain. Pain with walking, sitting, sitting to standing, and laying down. States It feels like deep muscle pain but I'm not sure . He has a history of right lower back and hip pain, and he is on naproxen 500mg in the morning and night. Has taken naproxen with no effect on pain. Denies any electricity feeling, burning, or radiculopathy down the right leg. Denies chest pain, shortness of breath, difficulty breathing, abdominal pain, nausea, vomiting, diarrhea, urinary frequency/urgency, pain with urination, tingling, loss, saddle paresthesia/numbness. Onset (ago): week(s) (2) Location: back (Right lower back to hip), pelvis (right hip) and right Radiation: back (from right lower back/buttocks to right hip) Quality: stabbing and sharp Pain Consistency: constant Relieving factors: none Exacerbating factors: movement Associated symptoms: denies other symptoms Treatments prior to arrival: NSAID (Naproxen 500mg morning and night) Related Data Previous Rx's ?Medication ?Instructions ?Recorded tramadol 50 mg tablet 50 mg PO Q6H PRN pain #10 tabs 06/26/20 ProAir HFA 90 mcg/actuation 2 puff inhalation Q4-6H PRN 08/19/20 aerosol inhaler (albuterol sulfate) shortness of breath or wheezing #8.5 grams ProAir RespiClick 90 mcg/actuation 2 inh inhalation Q4-6H PRN 08/21/20 breath activated (albuterol shortness of breath #1 ea sulfate) repaglinide 0.5 mg tablet 0.5 mg PO .Once a day 30 days #30 12/14/20 tabs lancets 28 gauge (OneTouch #150 ea 05/06/21 SureSoft Lancing Devices) blood-glucose meter (OneTouch #1 ea 05/07/21 Verio Flex Meter) ibuprofen 600 mg tablet 600 mg PO Q8H PRN pain #20 tabs 04/05/23 clotrimazole-betamethasone 1 1 appl topical BID 2 weeks #45 07/14/23 %-0.05 % topical cream grams lancets 33 gauge #100 ea 07/14/23 atorvastatin 40 mg tablet 40 mg PO DAILY 30 days #90 caps 09/14/23 triamcinolone acetonide 0.5 % 1 appl topical TID #15 grams 09/26/23 topical cream blood sugar diagnostic (OneTouch #150 ea 10/31/23 Verio test strips) empagliflozin 25 mg tablet 25 mg PO QAM 30 days #30 caps 12/08/23 (Jardiance) gabapentin 100 mg capsule 100 mg PO BEDTIME #30 caps 12/08/23 pioglitazone 45 mg tablet 45 mg PO DAILY 30 days #30 caps 01/03/24 cholecalciferol (vitamin D3) 50 50 mcg PO DAILY 30 days #30 caps 01/08/24 mcg (2,000 unit) capsule naproxen 500 mg tablet 500 mg PO BID #90 tabs 01/31/24 sitagliptin phosphate 100 mg 100 mg PO DAILY #30 tabs 02/02/24 tablet (Januvia) lisinopril 20 mg tablet 20 mg PO DAILY 30 days #90 caps 03/07/24 cyclobenzaprine 5 mg tablet 5 mg PO TID PRN back pain 7 days 03/13/24 #21 tabs Allergies Allergy/AdvReac Type Severity Reaction Status Date / Time metformin Allergy Unknown Unknown Verified 03/13/24 09:39 Review of Systems Constitutional: Constitutional: Reports no additional constitutional complaints, Denies chills, Denies fever(s) and Denies night sweats Eyes: Eyes: Reports no additional eye complaints, Denies blurry vision, Denies change in vision, Denies diplopia, Denies eye discharge, Denies loss of vision and Denies eye pain ENT: Denies dizziness Cardiovascular: Cardiovascular: Reports no additional cardiovascular complaints, Denies chest pain, Denies lightheadedness, Denies Loss of Consciousness and Denies dyspnea Respiratory: Respiratory: Reports no additional respiratory complaints and Denies dyspnea Gastrointestinal: Gastrointestinal: Reports no additional gastrointestinal complaints, Denies abdominal pain, Denies melena, Denies hematochezia, Denies change in bowel habits and Denies change in stool character Genitourinary: Genitourinary: Reports no additional male genitourinary complaints, Denies hematuria, Denies oliguria, Denies difficulty urinating, Denies dysuria, Denies urinary frequency, Denies urinary hesitancy, Denies urinary incontinence and Denies urinary urgency Musculoskeletal: Musculoskeletal: Reports as per HPI, Reports back pain, Denies numbness, Reports radiating pain into limb (ra) and Denies tingling Comments: Radiating into right hip, no numbness or tingling. Originates in right lower back/right buttocks. No vertebral column pain. Neurologic: Denies dizziness, Denies loss of vision, Denies numbness and Denies tingling Psychiatric: Psychiatric: Reports no additional psychiatric complaints Endocrine: Endocrine: Reports no additional endocrine complaints Hematologic/Lymphatic: Hematologic/Lymphatic: Reports no additional hematologic/lymphatic complaints Allergic/Immunologic: Allergic/Immunologic: Reports no additional allergic/immunologic complaints [facility] Past Medical History Attestation statement: The following information was validated with the patient. Source: old records reviewed and nursing notes reviewed Medical History Hyperlipidemia Diabetes type 2, uncontrolled Diabetic neuropathy associated with type 2 diabetes mellitus Hypertension Vitamin D deficiency Surgical History History of tonsillectomy Family History Family History Father Lung cancer Mother Pacemaker Maternal Grandmother Diabetes Brother CAD (coronary artery disease) Sister Hypertension Sister Myocardial infarction Sister Hearing problem Social History Social History Housing: Apartment Alcohol intake: never Patient Tobacco Use Status: Never used Tobacco Tobacco use type: Cigarette e-Cigarette/Vaping Use: Never Used Second Hand Smoke Exposure: No Advance Directives: No Advance Directives Information Provided: No service: No Current occupational status: unemployed and disabled Cognitive needs: No Hearing needs: No Vision needs: No Physical Exam ED Vital Signs: Vital Signs - 24 hr 08/14/24 09:36 Temperature 98.6 F Pulse Rate 91 Respiratory Rate 18 Blood Pressure 128/74 Pulse Oximetry 96 Oxygen Delivery Method Room Air BMI result Body Mass Index 33.4 Const General: cooperative, healthy appearing, alert, awake and in distress (with movement) moderate Nutritional Appearance: well nourished Orientation/consciousness: patient oriented x3 Limitations: no limitations HENMT Head: Yes normal to inspection and Yes atraumatic Ears: hearing grossly normal bilaterally and external ears normal General nose exam: Normal external nose present, no nasal discharge noted and no epistaxis Face and sinus: Yes normal facial exam, No abrasion and No laceration Mouth: Normal oral and palatal mucosa present, no drooling and no muffled voice Eyes General: appearance normal, both eyes and all related structures Periorbital: periorbital findings normal Eyelids: Yes eyelids normal Conjunctivae: conjunctivae normal Pupils: Equal, round and reactive pupils present EOM: EOMs intact bilaterally Neck Neck: Yes normal visual inspection, Yes full ROM and Yes no lymphadenopathy Chest Chest palpation & inspection: normal inspection of the chest Resp Effort & Inspection: normal respiratory effort and able to speak in complete sentences GI Inspection: Yes normal to inspection Palpation (GI): No Rebound tenderness present General: Yes no CVA tenderness Back/Spine/Pelvis Other: No lumbar spine tenderness with palpation, slight tenderness to the right paraspinal muscles in the lower lumbar/buttocks, lumbar extension/flexion/rotation is painful and pain radiates from the right lower back/buttocks to the right hip. No tingling/numbness/burning/electricity feeling with movement. ROM is intact, however is slightly limited due to pain. Pain with hip adduction/abduction/flexion/extension on the right side, ROM of hip is intact and normal. Back: no CVA tenderness Cervical Spine: normal cervical lordosis Thoracic/Lumbar Spine: thoracic and lumbar spine normal to inspection, bend over test abnormal and No lumbar spinal tenderness Skin General skin exam: no rashes or lesions noted Lesions: no lesions Rashes: no rashes Trauma: no lacerations or abrasions Wounds: no wounds Hair: normal Nails: normal Neuro General: patient oriented x3 and Normal light touch and pain sensation Cranial nerves: Yes Equal, round and reactive pupils present Cognition (Neuro): normal cognition Gait exam (Neuro): Normal gait present Motor exam (neuro): 5/5 motor strength present throughout Sensory Exam: Normal double simultaneous stimulation for sensation Pupils: Normal pupillary reactivity/response: bilateral Extrem General: Yes normal to inspection, Yes full ROM and Yes capillary refill normal Right lower extremity: normal to inspection and full ROM Left lower extremity: normal to inspection and full ROM Psych Appearance: grossly normal Mental Status: mental status grossly normal Speech and movement: Normal speech and movement present Affect: normal affect Attitude: cooperative Thought process: Normal thought process present Thought content: Normal thought content present Insight: Good insight present (Psych) Judgement: Good judgement present (Psych) Medications Administered Discontinued Medications Generic Name Dose Route Start Last Admin Trade Name Freq PRN Reason Stop Dose Admin Cyclobenzaprine HCl 5 mg 03/13/24 09:55 03/13/24 10:04 Cyclobenzaprine Hcl 5 Mg Tablet PO 03/13/24 09:56 5 mg ONCE ONE Administration Ketorolac Tromethamine 15 mg 03/13/24 09:54 03/13/24 10:04 Ketorolac Tromethamine 15 Mg/Ml Vial IM 03/13/24 09:55 15 mg ONCE ONE Administration Methylprednisolone Sodium Succinate 60 mg 03/13/24 09:55 03/13/24 10:03 Methylprednisolone Sod Succ 125 Mg/2 Ml Vial IM 03/13/24 09:56 60 mg ONCE ONE Administration Medical Decision Making Medical Decision Making [facility] Narrative: Patient is a 53 year old assigned male at with a history of DM, HTN, HLD, and hip pain presenting to the emergency department today with right sided low back pain. Patient's physical exam was as noted in the physical exam portion of this note. Patient's lumbar x-ray showed DDD but was otherwise unremarkable. I explained my physical exam findings as well as all test results to the patient. I answered all questions asked by the patient. I stressed the importance of the patient taking his medication as directed (either prescribed or as the over the counter packaging recommends). I stressed the importance of the patient following up with his primary care provider and if pain persists, a automated logistics specialist. I stressed the importance of the patient returning to the emergency department immediately if his symptoms were to worsen or if he were to develop any dizziness, shortness of breath, difficulty breathing, chest pain, blurry vision, loss of vision, nausea, vomiting, abdominal pain, fever, chills, back pain, or any other complaints. Patient verbalized agreement and understanding with this treatment plan and discharge. Differential Diagnosis Differential Diagnoses: The differential diagnosis associated with the presentation includes Muscle strain/tenderness Lumbar vertebral fracture Lumbar radiculopathy from degenerative changes Neuroforaminal stenosis DDD Admission/Observation Consideration of admission/observation: Escalation of care including admission/observation considered Patient would have been admitted to the hospital had his work up had any findings where hospital admission was appropriate and his clinical presentation warranted hospital admission. Independent Interpretation I performed an independent interpretation of an: Plain X-Ray Interpretation: My interpretation is in agreement with the radiologist's impression of this imaging study. EXAMINATION: XR LUMBOSACRAL SPINE CLINICAL INFORMATION: Pain COMPARISON: TECHNIQUE: Three views of the lumbosacral spine. FINDINGS: Transitional lumbosacral anatomy with presence of 6 nonrib-bearing lumbar vertebra. For the purposes of this report, the lowest lumbar vertebra is considered to represent the L5 vertebra. This vertebra has a hypertrophied right-sided transverse process that articulates with the sacrum. There is chronic rotatory levoscoliosis of the lumbar spine, apex of curvature at L3. Compared to 11/07/2022, there appears to be further decrease in the L3-L4 disc space with vacuum disc phenomenon, endplate sclerosis and anterolateral traction osteophyte formation. No acute fracture or malalignment. Incidentally noted is an old 0.8 cm calcific density projecting over the upper abdomen on the lateral radiograph. XR/XR lumbar spine 2-3V IMPRESSION: * Transitional lumbosacral anatomy. * Chronic and apparent worsening of disc degenerative change at L3-L4 level. * There is chronic rotatory levoscoliosis of the lumbar spine. Dictated By: Horace Proctor MD Signed By: Electronically signed by Horace Proctor MD 03/13/24 1092 Radiology Impression Discussion of test interpretation with radiology: I have reviewed the radiologist's reading. Prescription Management I considered prescription management with: Pain Medication (patient prescribed pain medication) Chronic Conditions Patient?s care impacted by: Diabetes Discharge Plan Discharge Clinical Impression: Low back pain, DDD (degenerative disc disease), lumbar Patient Disposition: Home, Self-Care Instructions: Acute Low Back Pain (ED), Degenerative Disc Disease (ED) Additional Instructions: Follow up with your primary care provider and if the pain persists, a automated logistics specialist. Return to the emergency department immediately if your symptoms worsen or if you develop any dizziness, shortness of breath, difficulty breathing, chest pain, blurry vision, loss of vision, nausea, vomiting, abdominal pain, fever, chills, back pain, or any other complaints. Prescriptions: New cyclobenzaprine 5 mg tablet 5 mg PO TID PRN (Reason: back pain) 7 Days Qty: 21 0RF No Action albuterol sulfate [ProAir HFA] 90 mcg/actuation HFA aerosol inhaler 2 puff inhalation Q4-6H PRN (Reason: shortness of breath or wheezing) Qty: 8.5 0RF ProAir RespiClick 90 mcg/actuation aerosol powdr breath activated 2 inh inhalation Q4-6H PRN (Reason: shortness of breath) Qty: 1 8RF (DME) lancets [OneTouch SureSoft Lancing Dev] 28 gauge misc See Rx Instructions topical QID Qty: 150 11RF Rx Instructions: As directed Test blood glucose 4x per day. (DME) blood-glucose meter [OneTouch Verio Flex meter] Misc See Rx Instructions .Route Qty: 1 0RF Rx Instructions: to test blood glucose 4x/day ibuprofen 600 mg tablet 600 mg PO Q8H PRN (Reason: pain) Qty: 20 0RF clotrimazole-betamethasone 1-0.05 % cream 1 appl topical BID 14 Days Qty: 45 0RF (DME) lancets 33 gauge misc See Rx Instructions .ROUTE .MEDSUPPLY Qty: 100 11RF Rx Instructions: 4x/day atorvastatin 40 mg tablet 40 mg PO DAILY 30 Days Qty: 90 2RF triamcinolone acetonide 0.5 % cream 1 appl topical TID Qty: 15 3RF (DME) OneTouch Verio test strips Strip See Rx Instructions Not Applicable .MEDSUPPLY Qty: 150 11RF Rx Instructions: Freestyle lite test strips Test blood glucose 4xper day. #150 strips per 30days Jardiance 25 mg tablet 25 mg PO QAM 30 Days Qty: 30 4RF gabapentin 100 mg capsule 100 mg PO BEDTIME Qty: 30 3RF pioglitazone 45 mg tablet 45 mg PO DAILY 30 Days Qty: 30 4RF cholecalciferol (vitamin D3) 50 mcg (2,000 unit) capsule 50 mcg PO DAILY 30 Days Qty: 30 4RF naproxen 500 mg tablet 500 mg PO BID Qty: 90 8RF Januvia 100 mg tablet 100 mg PO DAILY Qty: 30 4RF lisinopril 20 mg tablet 20 mg PO DAILY 30 Days Qty: 90 4RF tramadol 50 mg tablet 50 mg PO Q6H PRN (Reason: pain) Qty: 10 0RF Rx Instructions: for 3 days repaglinide 0.5 mg tablet 0.5 mg PO .Once a day 30 Days Qty: 30 6RF Rx Instructions: administer within 30 minutes before dinner. Referrals: [facility] [Provider Group] (If the pain persists, call to establish and follow up with the automated logistics specialist. ) Panda Carreon MD [Primary Care Provider] - Print Language: Urdu
[2024-03-13] MEDS: methylPREDNISolone Sod Succ 125 MG/2 ML VIAL 60 MG IM (10:03)
[2024-03-13] MEDS: Cyclobenzaprine HCl 5 MG TABLET PO (10:04)
[2024-03-13] MEDS: Ketorolac Tromethamine 15 MG/ML VIAL IM (10:04)
--- NOTE | 2024-03-13 10:10 | PC.NURSE ---
pt reporting 10/10 R lower back pain, states he recently had to lower his mother to the floor to prevent her from falling w pain starting shortly after. pt medicated per SEP, tolerated well.
[2024-03-13 12:24] VITALS: BP 128/74; PULSE 91; RESP 18; TEMP 37; O2SAT 96
== END 2024-03-13 12:24 | disposition home or self-care (01) ==
PROVIDERS: Emergency Provider Emergency Medicine; PCP Internal Medicine
DX: M51.36 Other intervertebral disc degeneration, lumbar region (principal); M25.551 Pain in right hip; M54.50 Low back pain, unspecified; E11.9 Type 2 diabetes mellitus without complications; I10 Essential (primary) hypertension; Z79.84 Long term (current) use of oral hypoglycemic drugs; Z79.899 Other long term (current) drug therapy
CPT/HCPCS: 72100; 96372; 99283; 99284; J1885; J2919

== ENCOUNTER 2024-03-21 13:47 | Outpatient (AMB) | payer OTHER, SELFPAY ==
[2024-03-21 13:55] VITALS: BP 149/68; PULSE 113; O2SAT 96; BMI 32.7
--- NOTE | 2024-03-21 13:55 | A.OFFVIS_ITS ---
Vital Signs 03/21/24 13:55 Height 6 ft 2 in Weight 255 lb BMI 32.7 BP 149/68 H Blood Pressure Location Rt brachial Position Sitting Pulse 113 H Pulse Source Pulse Oximeter Pulse Oximetry (%) 96 Oxygen Delivery Method Room Air Intake Visit Reasons: Degenerative Disc Disease/ED Follow Up Allergies metformin Allergy (Unknown, Verified 03/21/24 13:56) Unknown Medication List - Last Reconciled 03/21/24 by Ketty Hutchinson atorvastatin 40 mg PO DAILY 30 days blood sugar diagnostic (ZettasetTouch Verio test strips) Freestyle lite test strips Test blood glucose 4xper day. #150 strips per 30days blood-glucose meter (ZettasetTouch Verio Flex Meter) to test blood glucose 4x/day cholecalciferol (vitamin D3) 50 mcg PO DAILY 30 days clotrimazole-betamethasone 1-0.05 % 1 appl topical BID 2 weeks cyclobenzaprine 5 mg PO TID PRN 7 days empagliflozin (Jardiance) 25 mg PO QAM 30 days gabapentin 100 mg PO BEDTIME ibuprofen 600 mg PO Q8H PRN lancets 4x/day lancets ([employer] Lancing [employer]) As directed Test blood glucose 4x per day. lisinopril 20 mg PO DAILY 30 days naproxen 500 mg PO BID pioglitazone 45 mg PO DAILY 30 days ProAir HFA 90 mcg/actuation (albuterol sulfate) 2 puffs inhalation Q4-6H PRN NS ProAir RespiClick 90 mcg/actuation (albuterol sulfate) 2 inhalations inhalation Q4-6H PRN NS sitagliptin phosphate (Januvia) 100 mg PO DAILY triamcinolone acetonide 0.5% 1 appl topical TID HPI HPI Degenerative Disc Disease/ED Follow Up: Onset: 02/29/24 Location: Right lower back Characteristics of symptom or complaint: Stabbing Aggravating or associated factors: Movement Relieving factors: Muscle relaxers HPI Comments Details: Chinedu is a very pleasant 54-year-old male who presents the office today for evaluation management of his acute lower back pain Patient complaining of right lower back pain without radiation down either lower extremity for the last 3 weeks. Pain started after he assisted his mother to the floor. She is 89 and became weak, to prevent her falling he helped lower her to the floor. Immediately after this he felt pain in his right lower back that is worse with movement and tender to palpation. Patient was evaluated in the emergency room, he had an x-ray performed. Results as per below. Was taking cyclobenzaprine which improved his pain, he has run out of this prescription and is requesting refill. Taking naproxen without improvement of his pain. He has at tried heat and ice which give him minimal improvement Patient has not tried physical therapy, acupuncture, massage or interventional management Denies red flag symptoms including new loss of bowel, bladder or saddle anesthesia. Pain today is rated as a 10/10, but states with movement it would go to a 12/10 In terms of muscle damage condition is described as stabbing, hurting, punishing, tearing. Pain is negatively impacting patient's enjoyment of life, general activity, sleep, normal functioning. [facility] Medical History Hyperlipidemia Diabetes type 2, uncontrolled Diabetic neuropathy associated with type 2 diabetes mellitus Hypertension Vitamin D deficiency Surgical History History of tonsillectomy Family History Father Lung cancer Mother Pacemaker Maternal Grandmother Diabetes Brother CAD (coronary artery disease) Sister Hypertension Sister Myocardial infarction Sister Hearing problem Social History Housing: Apartment Alcohol intake: never Patient Tobacco Use Status: Never used Tobacco Tobacco use type: Cigarette e-Cigarette/Vaping Use: Never Used Second Hand Smoke Exposure: No service: No Current occupational status: unemployed and disabled Cognitive needs: No Hearing needs: No Vision needs: No Review of Systems Const All systems reviewed & are unremarkable except as noted in HPI and below Physical Exam Vital Signs: Last Vital Signs Pulse 113 H 03/21/24 13:55 BP 149/68 H 03/21/24 13:55 Pulse Ox 96 03/21/24 13:55 Oxygen Delivery Method Room Air 03/21/24 13:55 BMI result Body Mass Index 32.7 General: awake, alert, oriented. Answers questions appropriately. Fully engaged in examination. Skin: warm, dry, intact HEENT: Normocephalic. Hearing intact. Cardiac: External chest normal in appearance. Respiratory: No cough, audible wheezing or stridor. Abdomen: without gross distension. MS: No obvious swelling or deformities. Able to stand on bilateral tiptoes and bilateral heels.? Able to transition from sit to stand unassisted. Ambulates with bilaterally normal heel strike and toe off Tenderness to palpation right lumbar musculature Nontender over midline lumbar vertebrae and lumbar paraspinal muscles Pain with forward flexion past 70 degrees, extension past 10 degrees Nontender over bilateral PSIS SLR negative bilaterally No pain with internal/external rotation of the right hip Valsalva negative Facet loading positive bilaterally Neurological: Oriented to person, place, time and situation. Thought process intact. No gait abnormalities appreciated. Psychiatric: Appropriate mood and affect. Good judgment and insight. Results Reviewed Results Reviewed: 03/13/24 XR/XR lumbar spine 2-3V FINDINGS: Transitional lumbosacral anatomy with presence of 6 nonrib-bearing lumbar vertebra. For the purposes of this report, the lowest lumbar vertebra is considered to represent the L5 vertebra. This vertebra has a hypertrophied right-sided transverse process that articulates with the sacrum. There is chronic rotatory levoscoliosis of the lumbar spine, apex of curvature at L3. Compared to 11/07/2022, there appears to be further decrease in the L3-L4 disc space with vacuum disc phenomenon, endplate sclerosis and anterolateral traction osteophyte formation. No acute fracture or malalignment. Incidentally noted is an old 0.8 cm calcific density projecting over the upper abdomen on the lateral radiograph. IMPRESSION: * Transitional lumbosacral anatomy. * Chronic and apparent worsening of disc degenerative change at L3-L4 level. * There is chronic rotatory levoscoliosis of the lumbar spine. 03/13/23 XR/XR hip BI w PEL1V FINDINGS: No fracture. There is a minimal accessory ossification center situated lateral to the left acetabular roof. Hip joint spaces are maintained. Alignment is anatomic. Sacroiliac joints and pubic symphysis are normal. No abnormal soft tissue calcifications. IMPRESSION: Normal pelvis and hips. Assessment & Plan Assessment & Plan (1) Lumbar muscle pain: Code(s): M79.18 - Myalgia, other site Category: Medical (2) DDD (degenerative disc disease), lumbar: Code(s): M51.36 - Other intervertebral disc degeneration, lumbar region Category: Medical Plan Jodi is a very pleasant 54-year-old male who presented to the office today for evaluation management of his acute right lower back pain History, physical exam and provocative testing consistent with lumbar muscle strain Continue with naproxen as needed Continue with cyclobenzaprine 5 mg p.o. t.i.d. as needed. Refill sent to the pharmacy today Order placed for PT eval and treat All questions and concerns were answered, patient agrees to the plan Follow up after PT, sooner if needed Orders: Orders PT Evaluation and Treatment Today M79.18 - Myalgia, other site Medications: Changed From cyclobenzaprine 5 mg PO TID 7 days PRN 21 tabs 0RF back pain To cyclobenzaprine 5 mg PO TID 30 days PRN 90 tabs 0RF back pain Coding Level of Care Code New Pt Level 4 (58677) Diagnoses Lumbar muscle pain M79.18 DDD (degenerative disc disease), lumbar M51.36
== END 2024-03-21 14:18 | disposition home or self-care (01) ==
PROVIDERS: PCP Internal Medicine; Visit Provider Registered Nurse Emergency
DX: M79.18 Myalgia, other site (principal); M51.36 Other intervertebral disc degeneration, lumbar region
CPT/HCPCS: 99204

== ENCOUNTER → 2024-03-21 13:47 | Outpatient (BNVA) | payer OTHER, SELFPAY | PROVIDERS: PCP Internal Medicine; Visit Provider Registered Nurse Emergency | DX: M51.36 Other intervertebral disc degeneration, lumbar region (principal); M79.18 Myalgia, other site | CPT/HCPCS: 99202 ==

== ENCOUNTER 2024-05-09 13:20 | Outpatient (AMB) | payer OTHER, SELFPAY ==
[2024-05-09 13:22] VITALS: BP 132/70; PULSE 116; O2SAT 93; BMI 33.0
--- NOTE | 2024-05-09 13:22 | MHC.PC.OV ---
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 #150 strips per 30days blood-glucose meter (OneTouch Verio Flex Meter) to test blood glucose 4x/day cholecalciferol (vitamin D3) 50 mcg PO DAILY 30 days clotrimazole-betamethasone 1-0.05 % 1 appl topical BID 2 weeks cyclobenzaprine 5 mg PO TID PRN 30 days empagliflozin (Jardiance) 25 mg PO QAM 30 days gabapentin 100 mg PO BEDTIME ibuprofen 600 mg PO Q8H PRN lancets 4x/day lancets ([employer] Lancing [employer]) As directed Test blood glucose 4x per day. lisinopril 20 mg PO DAILY 30 days naproxen 500 mg PO BID pioglitazone 45 mg PO DAILY 30 days ProAir HFA 90 mcg/actuation (albuterol sulfate) 2 puffs inhalation Q4-6H PRN NS ProAir RespiClick 90 mcg/actuation (albuterol sulfate) 2 inhalations inhalation Q4-6H PRN NS sitagliptin phosphate (Januvia) 100 mg PO DAILY triamcinolone acetonide 0.5% 1 appl topical TID Tobacco use date assessed: 11/14/23 Dental Screening Dental Screen Date: 11/14/23 HPI 3mth f/u HPI Details hyperlipidemia on rx; due for labs PFSH Medical History Hyperlipidemia Diabetes type 2, uncontrolled Diabetic neuropathy associated with type 2 diabetes mellitus Hypertension Vitamin D deficiency Surgical History History of tonsillectomy Family History Father Lung cancer Mother Pacemaker Maternal Grandmother Diabetes Brother CAD (coronary artery disease) Sister Hypertension Sister Myocardial infarction Sister Hearing problem Social History Housing: Apartment Alcohol intake: never Patient Tobacco Use Status: Never used Tobacco Tobacco use type: Cigarette e-Cigarette/Vaping Use: Never Used Second Hand Smoke Exposure: No service: No Current occupational status: unemployed and disabled Cognitive needs: No Hearing needs: No Vision needs: No Questionnaire PHQ-9 Over the last 2 weeks, how often have you been bothered by any of the following problems? 1. Little interest or pleasure in doing things: not at all 2. Feeling down, depressed, or hopeless: not at all 3. Trouble falling or staying asleep, or sleeping too much: not at all 4. Feeling tired or having little energy: not at all 5. Poor appetite or overeating: not at all 6. Feeling bad about yourself - or that you are a failure or have let yourself or your family down: not at all 7. Trouble concentrating on things, such as reading the newspaper or watching television: not at all 8. Moving or speaking so slowly that other people could have noticed. Or the opposite - being so fidgety or restless that you have been moving around a lot more than usual: not at all 9. Thoughts that you would be better off or of hurting yourself in some way: not at all Total score: 0 Source: Developed by Drs. Tony Kelly, Maricarmen Ye, Jose Alvares and colleagues, with an educational osiel from [email or web address] Application. Thrive Questionnaire Date Thrive assessed: 11/14/23 Are you currently unemployed and looking for a job?: I choose not to answer this question AUDIT C Alcohol Use Questionnaire (AUDIT-C) 1. How often do you have a drink containing alcohol?: Never 2. How many drinks containing alcohol do you have on a typical day when you are drinking?: 1 or 2 (none) 3. How often do you have six or more drinks on one occasion?: Never Total Score: 0 Score Reviewed/Action Taken: Yes GRICELDA-7 AMB Questionnaire GRICELDA-7 Date GRICELDA - 7 assessed: 11/14/23 Source: Developed by Drs. Tony Kelly, Maricarmen Ye, Jose Alvares and colleagues, with an educational osiel from [email or web address] Application. Review of Systems Const Denies chills, Denies headache(s) and Denies weight loss ENT Denies headache(s) Card Denies chest pain, Denies syncope, Denies irregular heart rhythm and Denies dyspnea Resp Denies chest congestion, Denies cough and Denies dyspnea GI Denies abdominal pain, Denies change in stool character, Denies nausea and Denies vomiting Musc Denies deformity and Denies joint swelling Neuro Denies syncope and Denies headache(s) Physical exam (Primary Care) Vital Signs: Last Vital Signs Pulse 116 H 05/09/24 13:22 BP 132/70 05/09/24 13:22 Pulse Ox 93 05/09/24 13:22 Oxygen Delivery Method Room Air 05/09/24 13:22 BMI result Body Mass Index 33.0 Tobacco/Smoking Status: Tobacco use Status Tobacco use date assessed 11/14/23 05/09/24 13:23 Patient Tobacco Use Status Never used Tobacco 05/09/24 13:23 Tobacco use type Cigarette 05/09/24 13:23 e-Cigarette/Vaping Use Never Used 05/09/24 13:23 PHQ-9: PHQ-9 Score PHQ-9: Total score 0 05/09/24 13:34 Thrive Assessment: Date of Thrive Assessment Date Thrive assessed 11/14/23 05/09/24 13:23 Const General: cooperative, comfortable, no acute distress and alert Neck Neck: Yes no lymphadenopathy Thyroid: Thyroid normal Resp Effort & Inspection: normal respiratory effort Auscultation: clear to auscultation bilaterally Percussion: percussion normal Cardio Jugular venous distension: no JVD Palpation: normal PMI Rate: regular rate Rhythm: regular rhythm Heart sounds: S1 normal heart sound present and S2 normal heart sound present GI Inspection: Yes normal to inspection Palpation (GI): No hepatosplenomegaly present Skin General skin exam: no rashes or lesions noted Extrem General: Yes no clubbing, cyanosis or edema Results AMB Hemoglobin A1c AMB Hemoglobin A1c 8.2 % Last Edit by Kimmy Nicholson CMA on 05/09/24 13:34 Results Reviewed Results Reviewed: Laboratory Last Values Hgb A1c (Clinic) 8.2 % (4.0-6.0) H 05/09/24 13:31 Coding Level of Care Code Est Pt Level 3 (45099) Diagnoses Pure hypercholesterolemia E78.00 Hyperlipidemia type: pure hypercholesterolemia Assessment & Plan Assessment & Plan (1) Hyperlipidemia: Code(s): E78.5 - Hyperlipidemia, unspecified Category: Medical Qualifiers: Hyperlipidemia type: pure hypercholesterolemia Qualified Code(s): E78.00 - Pure hypercholesterolemia, unspecified Plan: stable; same rx; do labs Orders: Orders AMB Hemoglobin A1c Today E11.65 - Type 2 diabetes mellitus with hyperglycemia
== END 2024-05-09 13:37 | disposition home or self-care (01) ==
PROVIDERS: PCP Internal Medicine; Visit Provider Internal Medicine
DX: E78.00 Pure hypercholesterolemia, unspecified (principal); E11.65 Type 2 diabetes mellitus with hyperglycemia

== ENCOUNTER → 2024-05-09 13:20 | Outpatient (BNVA) | payer OTHER, SELFPAY | PROVIDERS: PCP Internal Medicine; Visit Provider Internal Medicine | DX: E11.65 Type 2 diabetes mellitus with hyperglycemia (principal); E78.5 Hyperlipidemia, unspecified; E78.00 Pure hypercholesterolemia, unspecified | CPT/HCPCS: 83036; 96127; 99212 ==

== ENCOUNTER 2024-06-05 14:00 | Outpatient (RCR) | payer OTHER, SELFPAY ==
--- NOTE | 2024-04-10 16:42 | MHC.PT.EP ---
[facility] [place] Office [place] Office [place] Office [address] [phone] F: [phone] F: [phone] F: [phone] F: [phone] Physical Therapy Plan of Care Date of Evaluation: 04/10/24 Date of Surgery: Diagnosis: R LBP Assessment: Pt is a 54 y/o M with HTN, diabetes and neuropathy who is referred to PT for eval and treat of R LBP resulting in decreased tolerance or ability for walking, standing, sitting and HH chores secondary to decreased lumbar ROM, decreased B hip strength, gait abnormalities, postural abnormalities, TTP over lumbar spinous processes, paraspinals and B PSIS, possible innominate involvement, (+) instability catch sign, (+) SI joint tests. Pt is motivated and is deemed an appropriate candidate to receive skilled PT services to address their physical impairments in order to improve their function. Frequency and Duration: The patient will be seen 2x/week for 4 weeks. Short Term Goals: Initiate home exercise program. Pt will improve B hip abd strength by 1/2 grade; initial 4/5 painful. Pt will report at most 6/10 pain; initial 10/10. 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 Pt will report being able to sit for 30 mins with no increase in pain; initial cannot sit for more than 10 minutes. Pt will report being able to perform light HH chores with no increase in pain; initial unable to perform any HH chores without pain. Pt will improve Aurelio score by 10 points. Treatment Plan: Modalities to reduce pain, spasms and effusion. Manual therapy to restore motion and function. Therapeutic exercise to improve strength and flexibility. Neuromuscular re-education for posture and balance. Therapeutic activities to return to functional activities of daily living. Electronically signed by: Ke Huang PT Please sign and return to therapist. Thank you for your referral.
--- NOTE | 2024-06-05 15:08 | MHC.PT.DC ---
[facility] [place] Office [place] Office [place] Office [address] [phone] F: [phone] F: [phone] F: [phone] F: [phone] Physical Therapy Discharge Report Diagnosis: R LBP Date of Surgery: Date of Evaluation: 04/10/24 Date of Discharge: 06/05/24 Treatments to Date: 11 Cancellations to Date: No Shows to Date: Discharge Status: Independent with HEP Recommend MD Follow-up Discharge Summary: Chinedu has been a motivated participant in his therapy in and out of the clinic; after some initial improvement he has plateaued without meeting his therapeutic goals; he is recommended to f/u with his MD. Electronically signed by: Ke Huang PT. Please sign and return to therapist. Thank you for your referral.
== END 2024-06-05 15:07 | disposition home or self-care (01) ==
LOC: HO.PT 14:00
PROVIDERS: PCP Internal Medicine; Visit Provider Registered Nurse Emergency
DX: M79.18 Myalgia, other site (principal)
CPT/HCPCS: 97014; 97110; 97161; 97530; 97535

== ENCOUNTER 2024-10-23 10:28 | Outpatient (AMB) | payer OTHER, SELFPAY ==
--- NOTE | 2024-10-23 10:29 | A.OFFPC_ITS ---
Vital Signs 10/23/24 10:30 Height 6 ft 2 in Weight 242 lb 12.8 oz BMI 31.2 BP 132/68 Blood Pressure Location Lt brachial Position Sitting Respiration 20 Pulse 93 Pulse Source Pulse Oximeter Temp 97.8 F Temp Source Oral Pulse Oximetry (%) 98 Oxygen Delivery Method Room Air Intake Visit Reasons: FEDE Dr Carreon Corporate Travel Coordinator Required: No Accompanied by: Self / Same As Patient Allergies metformin Allergy (Unknown, Verified 10/23/24 10:52) Unknown Tobacco use date assessed: 10/23/24 Dental Screening Dental Screen Date: 10/23/24 Did you have a dental visit in the last 12 months?: No Did you have a dental problem in the last 6 months where you did not have access to dental care?: No Was dental information given to patient?: Patient has dentist HPI FEDE Dr Carreon HPI Details Patient is a 54-year-old male who presented to transitioned care from Dr. Carreon. First time meeting this patient. reports that he is trying to get into a intermediate because his rent is going up reports that he has pain in his back and hips and did PT and it did not work. Last year Reports pain in right knee at times Reports that he is getting cuts and on his private area; did enema and had some pieces Reports that he has not have a good bowel movement in 2-3 months, only pieces come out [facility] Medical History Hyperlipidemia Diabetes type 2, uncontrolled Diabetic neuropathy associated with type 2 diabetes mellitus Hypertension Vitamin D deficiency Surgical History History of tonsillectomy Family History Father Lung cancer Mother Pacemaker Maternal Grandmother Diabetes Brother CAD (coronary artery disease) Sister Hypertension Sister Myocardial infarction Sister Hearing problem Social History Housing: Apartment Alcohol intake: never Patient Tobacco Use Status: Never used Tobacco Tobacco use type: Cigarette e-Cigarette/Vaping Use: Never Used Second Hand Smoke Exposure: No service: No Current occupational status: unemployed and disabled Cognitive needs: No Hearing needs: No Vision needs: No Questionnaire PHQ-9 Over the last 2 weeks, how often have you been bothered by any of the following problems? 1. Little interest or pleasure in doing things: more than half the days 2. Feeling down, depressed, or hopeless: nearly every day 3. Trouble falling or staying asleep, or sleeping too much: more than half the days 4. Feeling tired or having little energy: nearly every day 5. Poor appetite or overeating: not at all 6. Feeling bad about yourself - or that you are a failure or have let yourself or your family down: not at all 7. Trouble concentrating on things, such as reading the newspaper or watching television: not at all 8. Moving or speaking so slowly that other people could have noticed. Or the opposite - being so fidgety or restless that you have been moving around a lot more than usual: not at all 9. Thoughts that you would be better off or of hurting yourself in some way: not at all Total score: 10 Depression Screening Interpretation: Positive Depression Screening Done: Yes 78641 - PHQ-9 Billing: Yes Source: Developed by Drs. Tony Kelly, Maricarmen Ye, Jose Alvares and colleagues, with an educational osiel from [employer]. Thrive Questionnaire Date Thrive assessed: 10/23/24 I am a: Patient What is your living situation today?: I have a steady place to live Within the past 12 months, did the food you bought not last and you didn't have the money to get more?: Never true Within the past 12 months, did you worry whether your food would run out before you got money to buy more?: Never true Do you have trouble paying for medicines?: No Do you have trouble getting transportation to medical appointments?: No Do you have trouble paying your heating and electricity bill?: No Do you have trouble taking care of your child, family member or friend?: No Do you have trouble with day-to-day activities such as bathing, preparing meals, shopping, managing finances, etc.?: No Are you currently unemployed and looking for a job?: I choose not to answer this question Are you interested in more education?: No Please select the resources that you would like help with: None Currently or been in a relationship where the following occur: No concerns reported THRIVE Score: 0 AUDIT C Alcohol Use Questionnaire (AUDIT-C) 1. How often do you have a drink containing alcohol?: Never 2. How many drinks containing alcohol do you have on a typical day when you are drinking?: 1 or 2 (none) 3. How often do you have six or more drinks on one occasion?: Never Total Score: 0 Score Reviewed/Action Taken: Yes GRICELDA-7 AMB Questionnaire GRICELDA-7 Date GRICELDA - 7 assessed: 10/23/24 Feeling nervous, anxious, or on edge: 3 = Nearly every day Not being able to stop or control worryin = More than half the days Worrying too much about different things: 3 = Nearly every day Trouble relaxin = Nearly every day Being so restless that it is hard to sit still: 3 = Nearly every day Becoming easily annoyed or irritable: 0 = Not at all Feeling afraid as if something awful might happen: 3 = Nearly every day Total GRICELDA-7 score (0-4 normal; 5-9 mild; 10-14 moderate; 15-21 severe): 17 Source: Developed by Drs. Tony Kelly, Maricarmen Ye, Jose Alvares and colleagues, with an educational osiel from [employer]. GRICELDA-7 Assessment Billing GRICELDA-7 Assessment Tool: GRICELDA-7 Assessment 41089 Physical exam (Primary Care) Vital Signs: Last Vital Signs Temp 97.8 F 10/23/24 10:30 Pulse 93 10/23/24 10:30 Resp 20 10/23/24 10:30 BP 132/68 10/23/24 10:30 Pulse Ox 98 10/23/24 10:30 Oxygen Delivery Method Room Air 10/23/24 10:30 BMI result Body Mass Index 31.2 Tobacco/Smoking Status: Tobacco use Status Tobacco use date assessed 10/23/24 10/23/24 10:38 Patient Tobacco Use Status Never used Tobacco 10/23/24 10:31 Tobacco use type Cigarette 10/23/24 10:31 e-Cigarette/Vaping Use Never Used 10/23/24 10:31 PHQ-9: PHQ-9 Score PHQ-9: Total score 10 10/23/24 11:12 Depression Screening Interpretation: Positive Thrive Assessment: Date of Thrive Assessment Date Thrive assessed 10/23/24 10/23/24 10:38 Currently or been in a relationship where the following occur: No concerns reported Results AMB Hemoglobin A1c AMB Hemoglobin A1c 7.7 % Last Edit by Cony Hawk CMA on 10/23/24 10:53 Results Reviewed Results Reviewed: Laboratory Last Values Hgb A1c (Clinic) 7.7 % (4.0-6.0) H 10/23/24 10:32 Coding Additional Codes GRICELDA-7 Assessment Billing - GRICELDA-7 Assessment Tool: GRICELDA-7 Assessment 85343 ([id number]) PHQ-9 - 99224 - PHQ-9 Billing: Yes ([id number]) Assessment & Plan Assessment & Plan Orders: Orders Glucose Fasting Today E11.9 - Type 2 diabetes mellitus without complications, E55.9 - Vitamin D deficiency, unspecified, E66.9 - Obesity, unspecified, E78.00 - Pure hypercholesterolemia, unspecified, I10 - Essential (primary) hypertension TSH reflex Free T4 Today E11.9 - Type 2 diabetes mellitus without complications, E55.9 - Vitamin D deficiency, unspecified, E66.9 - Obesity, unspecified, E78.00 - Pure hypercholesterolemia, unspecified, I10 - Essential (primary) hypertension US abdomen complete Today R10.9 - Unspecified abdominal pain AMB Hemoglobin A1c Today E11.9 - Type 2 diabetes mellitus without co mplications, I10 - Essential (primary) hypertension Complete Blood Count Auto Diff Today E11.9 - Type 2 diabetes mellitus without complications, E55.9 - Vitamin D deficiency, unspecified, E66.9 - Obesity, unspecified, E78.00 - Pure hypercholesterolemia, unspecified, I10 - Essential (primary) hypertension Comprehensive [place]. Panel Fast Today E11.9 - Type 2 diabetes mellitus without complications, E55.9 - Vitamin D deficiency, unspecified, E66.9 - Obesity, unspecified, E78.00 - Pure hypercholesterolemia, unspecified, I10 - Essential (primary) hypertension Vitamin D 25-OH Total Today E11.9 - Type 2 diabetes mellitus without complications, E55.9 - Vitamin D deficiency, unspecified, E66.9 - Obesity, unspecified, E78.00 - Pure hypercholesterolemia, unspecified, I10 - Essential (primary) hypertension Lipid Panel Today E11.9 - Type 2 diabetes mellitus without complications, E55.9 - Vitamin D deficiency, unspecified, E66.9 - Obesity, unspecified, E78.00 - Pure hypercholesterolemia, unspecified, I10 - Essential (primary) hypertension Hemoglobin A1c Today E11.9 - Type 2 diabetes mellitus without complications, E55.9 - Vitamin D deficiency, unspecified, E66.9 - Obesity, unspecified, E78.00 - Pure hypercholesterolemia, unspecified, I10 - Essential (primary) hypertension UA CC w/rflx Micro + Cult Today E11.9 - Type 2 diabetes mellitus without complications, E55.9 - Vitamin D deficiency, unspecified, E66.9 - Obesity, unspecified, E78.00 - Pure hypercholesterolemia, unspecified, I10 - Essential (primary) hypertension Medications: New polyethylene glycol 3350 (Miralax) 17 grams PO DAILY 90 days 100 ea 3RF docusate sodium (Colace) 100 mg PO BID 60 caps 3RF K59.00 - Constipation, unspecified ketoconazole 2% 1 appl topical BID 60 grams 1RF B35.6 - Tinea cruris
[2024-10-23 10:30] VITALS: BP 132/68; PULSE 93; RESP 20; TEMP 36.6; O2SAT 98; BMI 31.2
--- OUTSIDE RECORDS SUMMARY | 2024-10-23 12:18 | XMS_ITS | Clinical Summary ---
Author Organization [facility] Address [id number] [place] [id number] Care Team Providers Care Concrete Craftsman Name Role Phone Panda Carreon MD Primary Care Provider [phone] Allergies Active Allergy Reactions Criticality Noted Date Comments Metformin 05/19/2020 Medications footcare,cherry llaneous (FOOT CARE PRODUCTS MISC) 1 Applicator by Does not apply route daily. Dispens 1 pair prefabricated insoles 4 Active cholecalcifero l (VITAMIN D-3) 50 mcg (2,000 unit) capsule Take 1 capsule (2,000 Units total) by mouth 1 (one) time each day. 3 Active blood sugar diagnostic (OneTouch Verio test strips) test strip TEST BLOOD GLUCOSE 4 TIMES DAILY 3 Active lancets lancets USE 4 TIMES A DAY. 3 Active ciclopirox (PENLAC) 8 % solution Apply daily to nails clean medication residue off of nail plate every 3 days with rubbing alcohol 3 Active SITagliptin phosphate (Januvia) 100 mg tablet Take 100 mg by mouth daily. Active pioglitazone (ACTOS) 45 mg tablet Take 45 mg by mouth daily. Active empagliflozin (Jardiance) 25 mg tablet Take by mouth. Activ e atorvastatin (LIPITOR) 40 mg tablet Take 40 mg by mouth daily. Active gabapentin (NEURONTIN) 100 mg capsule Take 100 mg by mouth daily. Active lisinopriL (PRINIVIL,ZEST RIL) 20 mg tablet Take 20 mg by mouth daily. Active NIACIN ORAL Take by mouth. Act sidney naproxen (NAPROSYN) 500 mg tablet Take 500 mg by mouth 2 times daily (with meals). Active Medical History Medical History Date Comments Diabetes (CMS/HCC) DX:Diabetes ( HCC) Asthma DX:Asthma Joint problem DX:Joint problem Social History Tobacco Use Types Packs/Day Years Used Date Smoking Tobacco: Never Smokeless Tobacco: Never Alcohol Use Standard Drinks/Week Comments Never 0 (1 standard drink = 0.6 oz pur e alcohol) Sex and Gender Information Value Date Recorded Sex Assigned at Not on file Legal Sex Male 8:19 AM EST Gender Identity Not on file Sexual Orientation Not on file Obstetrics History Last Filed Vital Signs Vital Sign Reading Time Taken Comments Blood Pressure - - Pulse - - Temperature - - Respiratory Rate - - Oxygen Saturation - - Inhaled Oxygen Concentration - - Weight 127 kg (279 lb) 02/23/2024 11:06 AM EDT Height 185.4 cm (6' 1 ) 02/23/2024 11:06 AM EDT Body Mass Index 36.81 02/23/2024 11:06 AM EDT Plan of Treatment Upcoming Encounters Date Type Department Care Team (Late st Contact Info) Description 02/24/2025 1:30 PM EDT Office Visit Orthopedic Surgery - [place] [id number] [phone] Bony Mascorro, DPM [address] [address] Health Maintenance Due Date Last Done Comments DTaP,Tdap,and Td Vaccines (1 - Tdap) 1988 Hepatitis B Vaccines (1 of 3 - 19+ 3-dose series) 1988 Pneumococcal Vaccine: 50+ Ye ars (1 of 2 - PCV) 1988 Pneumococcal Vaccine: Pediat rics (0 to 5 Years) and At-Risk Patients (6 to 64 Years) (1 of 2 - PCV) 1988 Zoster Vaccines (1 of 2) 2019 Cholesterol Screening (Lipid Panel) 07/03/2022 Colorectal Cancer Screening: Colonoscopy 07/03/2022 Depression Screening 07/03/2022 HIV Screening 07/03/2022 Hepatitis C Screening 07/03/2022 Social Influencers of Health Screening 07/03/2022 COVID-19 Vaccine ( - 2023-2 5 season) 2024 Influenza Vaccine (#1) 2024 HIB Vaccines Aged Out No longer eligi ble based on patient's age to complete this topic HPV Vaccines Aged Out No longer eligi ble based on patient's age to complete this topic Hepatitis A Vaccines Aged Out No long er eligible based on patient's age to complete this topic IPV Vaccines Aged Out No longer eligi ble based on patient's age to complete this topic MMR Vaccines Aged Out No longer eligi ble based on patient's age to complete this topic Meningococcal ACWY Vaccine Aged Out N o longer eligible based on patient's age to complete this topic Meningococcal B Vacine Aged Out No lo nger eligible based on patient's age to complete this topic RSV Immunization Patients Un lg 20 months Aged Out No longer eligible b ased on patient's age to complete this topic Varicella Vaccines Aged Out No longer eligible based on patient's age to complete this topic Care Teams Concrete Craftsman Relationship Specialty Start Date End Date Panda Carreon MD [address] [place] [address] [address] [place] [address] PCP - General Internal Medicine 04/30/20
== END 2024-10-23 11:24 | disposition home or self-care (01) ==
LOC: HO.HMCH 10:29
PROVIDERS: PCP Internal Medicine
DX: E11.9 Type 2 diabetes mellitus without complications (principal); I10 Essential (primary) hypertension

== ENCOUNTER → 2024-10-23 10:28 | Outpatient (BNVA) | payer OTHER, SELFPAY | PROVIDERS: PCP Internal Medicine | DX: R10.9 Unspecified abdominal pain (principal); K59.00 Constipation, unspecified; N48.1 Balanitis; E11.9 Type 2 diabetes mellitus without complications; E78.00 Pure hypercholesterolemia, unspecified; I10 Essential (primary) hypertension; E55.9 Vitamin D deficiency, unspecified | CPT/HCPCS: 83036; 96127; 99212 ==

== ENCOUNTER 2024-10-25 09:18 | Outpatient (REF) | payer OTHER, SELFPAY ==
--- NOTE | ~2024-10-25 | US_ITS ---
CLINICAL HISTORY: R10.9 - Unspecified abdominal pain US ABDOMEN COMPLETE Comparison: None Findings: The visualized portions of the pancreas appear unremarkable. The visualized aorta and inferior vena cava are normal caliber. The liver is normal in size and echotexture. There is no intrahepatic bile duct dilatation. The common bile duct measures 4.1 mm. There is no sonographic Forrest sign. There is a nonmobile partly shadowing 8 mm echogenic focus in the gallbladder. No gallbladder wall thickening. The main portal vein is antegrade. Right kidney measures 11.6 cm in length. Left kidney measures 14.6 cm in length. There is a thick walled exophytic cystic lesion in the midpole that measures 3.9 x 2.9 x 3.5 cm and contains a mural soft tissue nodule. There is a 1 cm nonobstructing calculus. There is trace perinephric fluid. The spleen is normal. IMPRESSION: 1. Complex cystic lesion in the left kidney measuring almost 4 cm in greatest diameter for which further characterization with dedicated pre and post-contrast renal CT or MRI is recommended. The lesion is at least a Bosniak 2F. Trace left perinephric fluid. 2. No hydronephrosis. 1 cm nonobstructing left nephrolithiasis. 3. Probable nonmobile gallstone. No acute cholecystitis. 4. No biliary ductal dilatation. This document has been electronically signed by: Shawanda Ragsdale DO on 10/25/2024 13:53:52
== END 2024-10-25 09:19 | disposition home or self-care (01) ==
LOC: HO.US 09:18
DX: R10.9 Unspecified abdominal pain (principal)
CPT/HCPCS: 76700

== ENCOUNTER → 2024-10-25 09:22 | Outpatient (BNV) | payer OTHER, SELFPAY | PROVIDERS: Visit Provider Radiology Diagnostic Radiology | DX: N28.1 Cyst of kidney, acquired (principal) | CPT/HCPCS: 76700 ==

== ENCOUNTER → 2024-11-12 13:21 | Outpatient (BNV) | payer OTHER, SELFPAY | PROVIDERS: Visit Provider Radiology Diagnostic Radiology | DX: N28.1 Cyst of kidney, acquired (principal) | CPT/HCPCS: 74183 ==

== ENCOUNTER 2024-11-12 13:22 | Outpatient (REF) | payer OTHER, SELFPAY ==
--- NOTE | ~2024-11-12 | MR_ITS ---
EXAMINATION: MRI Abdomen without and with contrast HISTORY: N28.89 - Other specified disorders of kidney and ureter COMPARISON: Correlation is made with an abdominal ultrasound dated 10/17/2024. TECHNIQUE: Axial in and out of phase T1-weighted gradient echo, axial diffusion weighted, and axial and coronal HASTE T2 with fat saturation images were obtained through the abdomen. Subsequently, fat suppressed axial and coronal T1-weighted images were obtained after the intravenous administration of 10 mL Gadavist. FINDINGS: There is a 3.4 cm cystic mass at the upper pole of the left kidney corresponding to the lesion noted on ultrasound. The lesion demonstrates mild wall thickening measuring 2-3 mm in thickness with diffuse wall enhancement. In addition, there is an 11 x 7 mm enhancing mural nodule at the superior portion of the lesion. There is no fat within the lesion. This represents a Bosniak IV mass. No additional renal mass is identified. The right kidney is unremarkable. There is no hydronephrosis. The bilateral renal arteries and veins are patent. There is no loss of signal intensity within the liver on opposed phase imaging to suggest steatosis. There is no enhancing liver mass. The hepatic and portal veins are patent. There is no intra or extrahepatic biliary ductal dilatation. There is cholelithiasis. The pancreas, spleen, and adrenals are unremarkable. No retroperitoneal lymphadenopathy or ascites is identified in the upper abdomen. There is a hemangioma in the T11 vertebral body. MR/MR abdomen wo/w con IMPRESSION: 1. 3.4 cm cystic mass at the upper pole of the left kidney demonstrating an 11 x 7 mm enhancing mural nodule. This represents a Bosniak IV mass and has a high probability of malignancy. Urologic consultation is recommended. 2. Cholelithiasis. 3. Findings were sent to Enrico San NP by secure text message on 11/13/2024 at 7:52 AM and acknowledged at 7:53 AM. Electronically signed by: Tony Ramos MD 11/13/2024 07:53 AM EDT
[2024-11-12] MEDS: gadobutroL 10 ML VIAL IVPUSH (14:15)
--- OUTSIDE RECORDS SUMMARY | 2024-11-12 16:22 | XMS_ITS | Clinical Summary ---
Author Organization [employer] Address [address] [facility] 7[address] [place] [address] Care Team Providers Care Grad Intern Name Role Phone Unavailable Primary Care Provider Unavailabl e Allergies Active Allergy Reactions Criticality Noted Date Comments Metformin Diarrhea 12/29/2017 Medications atorvastatin (Lipitor) 40 MG tablet Take 40 mg by mouth in the morning. 03/19/2023 Active cholecalciferol (Vitamin D-3) 50 MCG (1999 UT) capsule Take by mouth in the morning. 04/16/2023 Active Jardiance 25 MG Take 25 mg by mouth in the morning. 04/20/2023 Active gabapentin (Neurontin) 100 MG capsule Take 100 mg by mouth at bedtime. 04/28/2023 Active OneTouch Verio test strip TEST BLOOD GLUCOSE 4 TIMES DAILY 04/04/2023 Active lisinopril 20 MG tablet Take 20 mg by mouth in the morning. 03/19/2023 Active naproxen (Naprosyn) 500 MG tablet Take 500 mg by mouth 2 times daily. 04/28/2023 Active pioglitazone (Actos) 45 MG tablet Take 45 mg by mouth in the morning. 04/20/2023 Active simvastatin (Zocor) 10 MG tablet Take 1 tablet by mouth at bed time. Active Januvia 100 MG tablet Take 100 mg by mouth in the morning. 04/20/2023 Active Social History Tobacco Use Types Packs/Day Years Used Date Smoking Tobacco: Never Smokeless Tobacco: Never Tobacco Cessation:Counseling Given: Not Answered Sex and Gender Information Value Date Recorded Sex Assigned at Male 05/30/2022 10:24 AM EDT Legal Sex Male 10:24 AM EDT Gender Identity Male 05/30/2022 10:24 AM EDT Sexual Orientation Straight 05/30/2022 10 :24 AM EDT Plan of Treatment Health Maintenance Due Date Last Done Comments CT Colonography 1969 Colonoscopy 1969 Colorectal Cancer Screening 1969 Depression Screening 1969 FIT DNA/Cologuard 1969 FIT 1969 FOBT 1969 HIV Screening 1969 Lipid Panel 1969 SDOH Screening 1969 Sigmoidoscopy 1969 Alcohol/Substance Use Screening 1981 Hepatitis C Screening 1987 Hepatitis B Vaccines (1 of 3 - 19+ 3-dose series) 1988 Zoster Vaccines (1 of 2) 2019 Dental Oral Exam 10/21/2022 04/22/2022, , 09/23/2020, Additional history exists Dental Prophylaxis 10/21/2022 04/22/2022, 0 10/22/2020, 08/20/2019, Additional history exists Dental X-Ray: Bitewings 04/15/2023 04/14/20 22, 03/24/2022, 09/23/2020, Additional history exists Pneumococcal Vaccine: 50+ Years (3 of 3 - PCV20 or PCV21) 05/02/2023 05/02/2018, 12/16/2014 Dental X-Ray: Full Mouth 11/01/2023 10/30/2020, 08/01 COVID-19 Vaccine ( season) 2024 05/24/2022, 06/22/2021, 11/04/2020 Influenza Vaccine (#1) 2024 , 04/27/2022, 04/20/2021, Additional history exists Tobacco Screening 05/11/2024 05/11/2023 DTaP/Tdap/Td Vaccines (2 - Td or Tdap) 12/16/2024 12/16/2014 RSV Patients and Patients Aged 60 years or older (1 - 1-dose 75+ series) 2044 HIB Vaccines Aged Out No longer eligi [...] patient's age to complete this topic Meningococcal Vaccine Aged Out No michelle zay eligible based on patient's age to complete this topic RSV under 20 months Aged Out No longe r eligible based on patient's age to complete this topic Rotavirus Vaccines Aged Out No longer eligible based on patient's age to complete this topic Procedures Procedure Name Priority Date/Time Associated Diagnosis Comments PROPHYLAXIS - ADULT Routine 04/22/2022 1 2:00 AM EDT PERIODIC ORAL EVALUATION - ESTABLISHED PATIENT Routine 04/22/2022 12:00 AM EDT BITEWING - SINGLE RADIOGRAPHIC IMAGE Routine 04/14/2022 12:00 AM EDT PANORAMIC RADIOGRAPHIC IMAGE Routine 10/30/2020 12:00 AM EDT from Last 3 Months or Most Recently Relevant to Health Maintenance Insurance [facility]
--- OUTSIDE RECORDS SUMMARY | 2024-11-12 16:22 | XMS_ITS | Encounter Summary ---
Author Organization [employer] Address [address] [facility] 7t [place] [address] Care Team Providers Care Game Developer Name Role Phone Unavailable Primary Care Provider Unavailabl e Encounter Details Date Type Department Care Team (Latest Contact Info) Description 08/21/2019 Abstract [facility] CONVERSIONS Dental, Provider, DDS Social History Tobacco Use Types Packs/Day Years Used Date Smoking Tobacco: Never Assessed Sex and Gender Information Value Date Recorded Sex Assigned at Male 05/30/2022 10:24 AM EDT Legal Sex Male 10:24 AM EDT Gender Identity Male 05/30/2022 10:24 AM EDT Sexual Orientation Straight 05/30/2022 10 :24 AM EDT documented as of this encounter Plan of Treatment Not on file documented as of this encounter Visit Diagnoses Not on filedocumented in this encounter
--- OUTSIDE RECORDS SUMMARY | 2024-11-12 16:22 | XMS_ITS | Encounter Summary ---
Author Organization [employer] Address [address] [facility] 7t [place] [address] Care Team Providers Care Asbestos Worker Helper Name Role Phone Unavailable Primary Care Provider Unavailabl e Reason for Visit * Reason Onset Date Comments Appointment 09/29/2022 Encounter Details Date Type Department Care Team ([facility] st Contact Info) Description 09/29/2022 Telephone [facility] ADULT DENTAL [address] [place] [address] Kathie Richards DDS Appointment Social History Tobacco Use Types Packs/Day Years Used Date Smoking Tobacco: Never Assessed Sex and Gender Information Value Date Recorded Sex Assigned at Male 05/30/2022 10:24 AM EDT Legal Sex Male 10:24 AM EDT Gender Identity Male 05/30/2022 10:24 AM EDT Sexual Orientation Straight 05/30/2022 10 :24 AM EDT documented as of this encounter Miscellaneous Notes * Telephone Encounter - Kimebrly Hawk - 09/29/2022 1:35 PM EST Patients appt was cancelled. He was calling in to reschedule anyway because he has a cold and not feeling well. 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 He did say thathe also left the office a message documented in this encounter Plan of Treatment Not on file documented as of this encounter Visit Diagnoses Not on filedocumented in this encounter
--- OUTSIDE RECORDS SUMMARY | 2024-11-12 16:22 | XMS_ITS | Encounter Summary ---
Author Organization [employer] Address [address] [facility] 7t [place] [address] Care Team Providers Care Thermodynamics Professor Name Role Phone Unavailable Primary Care Provider Unavailabl e Encounter Details Date Type Department Care Team (Late st Contact Info) Description 06/12/2023 Abstract [facility] ADULT DENTAL [address] [place] [address] Deneen Dobson, DDS [address] [place] [address] Social History Tobacco Use Types Packs/Day Years Used Date Smoking Tobacco: Never Smokeless Tobacco: Never Sex and Gender Information Value Date Recorded [...]
--- OUTSIDE RECORDS SUMMARY | 2024-11-12 16:22 | XMS_ITS | Encounter Summary ---
Author Organization [employer] Address [address] [facility] 7t [place] [address] Care Team Providers Care Fairing Worker Name Role Phone Unavailable Primary Care Provider Unavailabl e Encounter Details Date Type Department Care Team (Latest Contact Info) Description 09/23/2020 Abstract [facility] CONVERSIONS Dental, Provider, DDS Social History Tobacco [...]
--- OUTSIDE RECORDS SUMMARY | 2024-11-12 16:22 | XMS_ITS | Clinical Summary ---
Author Organization [facility] Address [address] [place] [phone] Care Team Providers Care Hull Builder Name Role Phone Panda aCrreon MD Primary Care Provider [phone] Allergies Active Allergy Reactions Criticality Noted Date [...] Medical History Medical History Date Comments Diabetes (CMS/HCC V24, CMS/HCC V28) DX:Diabetes ([facility]) Asthma DX:Asthma Joint problem DX:Joint problem Social [...] PM EDT Office Visit Orthopedic Surgery - [place] [address] [phone] Bony Mascorro, DPM [address] [address] Health Maintenance Due Date Last Done Comments [...] - 2023-2 5 season) 2024 Influenza Vaccine (Season Ended) 2025 HIB Vaccines Aged Out No longer eligi [...] age to complete this topic Meningococcal B Vaccine Aged Out No l onger eligible based on patient's age to complete this topic RSV Immunization Patients Un lg 20 months Aged Out No longer eligible b ased on patient's age to complete this topic Varicella Vaccines Aged Out No longer eligible based on patient's age to complete this topic Care Teams Hull Builder Relationship Specialty Start Date End Date Panda Carreon MD [address] [place] [address] [address] [place] [address] PCP - General Internal Medicine 04/30/20
--- OUTSIDE RECORDS SUMMARY | 2024-11-12 16:22 | XMS_ITS | Encounter Summary ---
Author Organization [employer] Address [address] [facility] [address] [place] [address] Care Team Providers Care Cylinder Press Feeder Name Role Phone Unavailable Primary Care Provider Unavailabl e Encounter Details Date Type Department Care Team (Latest Contact Info) Description 04/22/2022 Abstract [facility] CONVERSIONS Dental, Provider, DDS Social History [...]
== END 2024-11-12 13:23 | disposition home or self-care (01) ==
LOC: HO.MRI 13:22
DX: N28.89 Other specified disorders of kidney and ureter (principal)
CPT/HCPCS: 74183; A9585

== ENCOUNTER 2024-12-18 13:50 | Outpatient (AMB) | payer OTHER, SELFPAY ==
--- OUTSIDE RECORDS SUMMARY | 2024-12-18 14:23 | XMS_ITS | Encounter Summary ---
Author Organization [employer] Address [address] [place] [address] [address] [place] [address] Care Team Providers Care Ecological Technical Officer Name Role Phone Unavailable Primary Care Provider Unavailabl e Encounter Details Date Type Department Care Team (Latest Contact Info) Description 04/22/2022 Abstract [facility] CONVERSIONS Dental, Provider, DDS Social History [...]
--- OUTSIDE RECORDS SUMMARY | 2024-12-18 14:23 | XMS_ITS | Encounter Summary ---
Author Organization [employer] Address [address] [facility] 7t [place] [address] Care Team Providers Care Quill Reamer Name Role Phone Unavailable Primary Care Provider Unavailabl e Encounter Details Date Type Department Care Team ([facility] st Contact Info) Description 06/12/2023 Abstract [facility] [address] [place] [address] Deneen Dobson, DDS [address] [place] [address] Social History Tobacco Use Types Packs/Day Years [...]
--- OUTSIDE RECORDS SUMMARY | 2024-12-18 14:23 | XMS_ITS | Encounter Summary ---
Author Organization [employer] Address [address] [facility] [address]t [place] [address] Care Team Providers Care Cycle Touring Guide Name Role Phone Unavailable Primary Care Provider Unavailabl e Encounter Details Date Type Department Care Team (Latest Contact Info) Description 08/21/2019 Abstract [facility] CONVERSIONS Dental, Provider, DDS Social History [...]
--- OUTSIDE RECORDS SUMMARY | 2024-12-18 14:23 | XMS_ITS | Clinical Summary ---
Author Organization [employer] Address [address] [place] [address] [address] [place] [address] Care Team Providers Care Business Services Sales Representative Name Role Phone Unavailable Primary Care Provider [...] Panel 1969 SDOH Screening 1969 Sigmoidoscopy 1969 Disability Screening 1969 Alcohol/Substance Use Screening 1981 Hepatitis C [...] Most Recently Relevant to Health Maintenance Insurance [facility]
--- OUTSIDE RECORDS SUMMARY | 2024-12-18 14:23 | XMS_ITS | Encounter Summary ---
Author Organization [employer] Address [address] [place] [address] [address] [place] [address] Care Team Providers Care Heel Seat Pounder Name Role Phone Unavailable Primary Care Provider Unavailabl e Encounter Details Date Type Department Care Team (Latest Contact Info) Description 09/23/2020 Abstract [facility] CONVERSIONS Dental, Provider, DDS Social History [...]
--- OUTSIDE RECORDS SUMMARY | 2024-12-18 14:23 | XMS_ITS | Encounter Summary ---
Author Organization [employer] Address [address] [facility] 7t [place] [address] Care Team Providers Care Architectural Inspector Name Role Phone Unavailable Primary Care Provider Unavailabl e Reason for Visit * Reason Onset Date Comments Appointment 09/29/2022 Encounter Details Date Type Department Care Team (Late st Contact Info) Description 09/29/2022 Telephone [facility] [address] [place] [address] Kathie Richards DDS Appointment Social History Tobacco [...] encounter Miscellaneous Notes * Telephone Encounter - Kimberly Hawk - 09/29/2022 1:35 PM EST Patients [...]
--- OUTSIDE RECORDS SUMMARY | 2024-12-18 14:23 | XMS_ITS | Clinical Summary ---
Author Organization [facility] Address [address] [place] [id number] Care Team Providers Care Census Taker Name Role Phone Panda Carreon MD Primary Care Provider [phone] Allergies Active Allergy Reactions Criticality Noted Date [...] Comments Diabetes (CMS/HCC V24, CMS/HCC V28) DX:Diabetes ([facility]) Asthma DX:Asthma Joint problem DX:Joint [...] PM EDT Office Visit Orthopedic Surgery - [place] [address] [address] Bony Mascorro, DPM [address] [address] Health Maintenance Due Date Last Done Comments [...] age to complete this topic Care Teams Census Taker Relationship Specialty Start Date End Date Panda Carreon MD [address] [place] [address] [address] [place] [address] PCP - General Internal Medicine 04/30/20
--- NOTE | 2024-12-18 14:30 | MHC.OFFVIS ---
Intake Visit Reasons: renal cyst Intake Note: Patient is present for RENAL CYST Urology Medication:NONE Antibiotic Allergy:NONE Blood Thinner:NONE Fitness Coordinator Required: No Allergies metformin Allergy (Unknown, Verified 12/18/24 14:33) Unknown HPI Comments Details: Chinedu is a pleasant male. He is a patient of Dr. San. He is seen for the following urologic conditions - cystic renal mass Bosniak 4 left upper pole 3.4 cm lesion Background diabetes Cystic Renal Mass Incidentally discovered during evaluation for back pain MRI - There is a 3.4 cm cystic mass at the upper pole of the left kidney corresponding to the lesion noted on ultrasound. The lesion demonstrates mild wall thickening measuring 2-3 mm in thickness with diffuse wall enhancement. In addition, there is an 11 x 7 mm enhancing mural nodule at the superior portion of the lesion. There is no fat within the lesion. This represents a Bosniak IV mass Plan CT-guided cryotherapy [facility] Medical History Hyperlipidemia Diabetes type 2, uncontrolled Diabetic neuropathy associated with type 2 diabetes mellitus Hypertension Vitamin D deficiency Surgical History History of tonsillectomy Family History Father Lung cancer Mother Pacemaker Maternal Grandmother Diabetes Brother CAD (coronary artery disease) Sister Hypertension Sister Myocardial infarction Sister Hearing problem Social History Housing: Apartment Alcohol intake: never Patient Tobacco Use Status: Never used Tobacco Tobacco use type: Cigarette e-Cigarette/Vaping Use: Never Used Second Hand Smoke Exposure: No service: No Current occupational status: unemployed and disabled Cognitive needs: No Hearing needs: No Vision needs: No Review of Systems Const Denies chills and Denies fever(s) Card Reports no additional complaints and Denies syncope Resp Denies cough GI Denies abdominal pain and Denies heartburn Reports as per HPI and Denies change in libido Neuro Denies syncope Psych Denies change in libido Endo Denies change in libido Physical Exam Const General: cooperative, healthy appearing, comfortable and no acute distress Orientation/consciousness: patient oriented x3 HEENT Face and sinus: Yes normal facial exam Mouth: moist mucous membranes Neck Neck: Yes normal visual inspection, Yes full ROM and Yes trachea midline Chest Chest palpation & inspection: normal inspection of the chest Resp Effort & Inspection: normal respiratory effort, able to speak in complete sentences and no respiratory distress GI Inspection: Yes normal to inspection Back/Spine/Pelvis Cervical Spine: normal cervical lordosis Thoracic/Lumbar Spine: thoracic and lumbar spine normal to inspection Skin General skin exam: no rashes or lesions noted Neuro General: patient oriented x3, gait normal, tone normal and moves all extremities Extrem General: Yes normal to inspection and Yes capillary refill normal Assessment & Plan Assessment & Plan (1) Renal mass: Code(s): N28.89 - Other specified disorders of kidney and ureter Category: Medical Plan Risks, benefits and alternatives to therapy were discussed. These include but are not limited to infection, bleeding, damage to local organs and tissues, need for further interventions. Anesthetic risks regarding cardiac arrhythmia, blood clots, and potential mortality were discussed. The patient understands the typical recovery time and the outpatient nature of the procedure. After consideration of these risks the patient gives full informed consent and they wish to move ahead with the procedure. - plan left targeted renal cryotherapy Orders: Orders CT Guided Cryo Ablation Renal Today N28.89 - Other specified disorders of kidney and ureter Referrals Interventional Radiology Referral N28.89 - Other specified disorders of kidney and ureter Patient Instructions: This note is constructed using voice recognition software. While every effort has been made to ensure accuracy sound controller errors may have been included. Imaging studies, laboratory and physical exam results were discussed and reviewed in detail. No major barriers to patient understanding were identified. An opportunity to ask questions regarding the treatment plan was provided. All questions were answered. The patient expressed understanding and agreement with the above treatment plan. The patient is aware they should contact our office by phone for worsening of their current condition or the appearance of new urologic symptoms. Compliance is encouraged with any medications and followup testing that is ordered. It is a privilege to participate in the urologic care of your patient. If you have any questions or concerns regarding treatment for the above conditions, or other urologic issues, please do not hesitate to contact me. The office telephone contact is [phone]. Sincerely, Dr Adam Herbert MD, [facility] - Urology Compassionate Specialist Care for the Genitourinary System Coding Level of Care Code New Pt Level 4 (31902) Diagnoses Renal mass N28.89
== END 2024-12-18 15:12 | disposition home or self-care (01) ==
LOC: HO.HUSH 13:51
PROVIDERS: Visit Provider Urology
DX: N28.89 Other specified disorders of kidney and ureter (principal)
CPT/HCPCS: 99204

== ENCOUNTER → 2024-12-18 13:50 | Outpatient (BNVA) | payer OTHER, SELFPAY | PROVIDERS: Visit Provider Urology | DX: N28.1 Cyst of kidney, acquired (principal); E11.9 Type 2 diabetes mellitus without complications | CPT/HCPCS: 99202 ==

== ENCOUNTER 2024-12-20 10:53 | Outpatient (AMB) | payer OTHER, SELFPAY ==
--- NOTE | 2024-12-20 10:52 | A.OFFVIS_ITS ---
Intake Visit Reasons: follow up visit from 12/18/24 Intake Note: Patient is present for F/U VISTIT Urology Medication:NONE Antibiotic Allergy:NONE Blood Thinner:NONE Tube Heater Required: No Allergies metformin Allergy (Unknown, Verified 12/20/24 10:54) Unknown HPI Comments Details: Chinedu is a pleasant male. He is a patient of Dr. San. He is seen for the following urologic conditions - cystic renal mass Telemedicine Evaluation 15 min Consultation 3225 films Silke Video Bosniak 4 left upper pole 3.4 cm lesion Background diabetes Had a number of questions further regarding planned CT-guided cryotherapy These were discussed Target will be wall of complex cyst Cystic Renal Mass Incidentally discovered during evaluation for back pain MRI - There is a 3.4 cm cystic mass at the upper pole of the left kidney corresponding to the lesion noted on ultrasound. The lesion demonstrates mild wall thickening measuring 2-3 mm in thickness with diffuse wall enhancement. In addition, there is an 11 x 7 mm enhancing mural nodule at the superior portion of the lesion. There is no fat within the lesion. This represents a Bosniak IV mass Plan CT-guided cryotherapy [facility] Medical History (Updated 01/17/25 @ 09:26 by Bella Delgado RN) Numbness Seizures Back pain Bronchitis Hyperlipidemia Diabetes type 2, uncontrolled Diabetic neuropathy associated with type 2 diabetes mellitus Hypertension Vitamin D deficiency Surgical History History of tonsillectomy Family History Father Lung cancer Mother Pacemaker Maternal Grandmother Diabetes Brother CAD (coronary artery disease) Sister Hypertension Sister Myocardial infarction Sister Hearing problem Social History Housing: Apartment Are you a primary palliative care nurse practitioner to a significant other at home: No Do you presently have visiting nurse or other home services: No Alcohol intake: never Patient Tobacco Use Status: Never used Tobacco Tobacco use type: Cigarette e-Cigarette/Vaping Use: Never Used Second Hand Smoke Exposure: No service: No Current occupational status: unemployed and disabled Cognitive needs: No Hearing needs: No Vision needs: No Review of Systems Const All systems reviewed & are unremarkable except as noted in HPI and below Reports no additional complaints Card Reports no additional complaints and Denies syncope Resp Reports no additional complaints GI Reports no additional complaints Reports as per HPI and Denies change in libido Musc Reports no additional complaints Neuro Denies syncope Psych Denies change in libido Endo Denies change in libido Physical Exam Telemedicine evaluation Appropriate responses Regular breathing rate and rhythm Const General: cooperative, healthy appearing, comfortable and no acute distress Orientation/consciousness: patient oriented x3 HEENT Head: Yes normal to inspection Ears: hearing grossly normal bilaterally Face and sinus: Yes normal facial exam Mouth: moist mucous membranes Eyes General: appearance normal, both eyes and all related structures Neck Neck: Yes normal visual inspection Chest Chest palpation & inspection: normal inspection of the chest Resp Effort & Inspection: normal respiratory effort and able to speak in complete sentences GI Inspection: Yes normal to inspection Back/Spine/Pelvis Cervical Spine: normal cervical lordosis Thoracic/Lumbar Spine: thoracic and lumbar spine normal to inspection Skin General skin exam: no rashes or lesions noted Neuro General: patient oriented x3, gait normal, tone normal and moves all extremities Extrem General: Yes normal to inspection and Yes capillary refill normal Telehealth Telehealth Location of provider rendering services: practice address Location of patient: address on file Patient Identification confirmed using: Name, : Yes Telehealth method: voice only Patient verbally consented to treatment: Yes Patient verbally consented to billing insurance company: Yes Patient informed of any privacy concerns related to visit: Yes Assessment & Plan Assessment & Plan (1) Renal mass: Code(s): N28.89 - Other specified disorders of kidney and ureter Category: Medical Plan Risks, benefits and alternatives to therapy were discussed. These include but are not limited to infection, bleeding, damage to local organs and tissues, need for further interventions. Anesthetic risks regarding cardiac arrhythmia, blood clots, and potential mortality were discussed. The patient understands the typical recovery time and the outpatient nature of the procedure. After consideration of these risks the patient gives full informed consent and they wish to move ahead with the procedure. - targeted cryotherapy left upper pole lesion Patient Instructions: This note is constructed using voice recognition software. While every effort has been made to ensure accuracy conductor/engineer errors may have been included. Imaging studies, laboratory and physical exam results were discussed and reviewed in detail. No major barriers to patient understanding were identified. An opportunity to ask questions regarding the treatment plan was provided. All questions were answered. The patient expressed understanding and agreement with the above treatment plan. The patient is aware they should contact our office by phone for worsening of their current condition or the appearance of new urologic symptoms. Compliance is encouraged with any medications and followup testing that is ordered. It is a privilege to participate in the urologic care of your patient. If you have any questions or concerns regarding treatment for the above conditions, or other urologic issues, please do not hesitate to contact me. The office telephone contact is [phone]. Sincerely, Dr Adam Herbert MD, [facility] - Urology Compassionate Specialist Care for the Genitourinary System Coding Level of Care Code Tele Est Pt Level 3 (72466) Diagnoses Renal mass N28.89
--- OUTSIDE RECORDS SUMMARY | 2024-12-20 10:58 | XMS_ITS | Clinical Summary ---
Author Organization [facility] Address [address] [place] [phone] Care Team Providers Care Coloring Room Worker Name Role Phone Panda Carreon MD Primary Care Provider Allergies Active Allergy Reactions Criticality Noted Date [...] Comments Diabetes (CMS/HCC V24, CMS/HCC V28) DX:Diabetes ([facility]) Asthma DX:Asthma Joint problem DX:Joint [...] PM EDT Office Visit Orthopedic Surgery - [place] [address] [address] Bony Mascorro, DPM [address] [address] Health Maintenance Due Date Last Done Comments [...] age to complete this topic Care Teams Coloring Room Worker Relationship Specialty Start Date End Date Panda Carreon MD [address] [place] [address] [address] [place] [address] PCP - General Internal Medicine 04/30/20
== END 2024-12-20 11:29 | disposition home or self-care (01) ==
LOC: HO.HUSH 10:53
PROVIDERS: Visit Provider Urology
DX: N28.89 Other specified disorders of kidney and ureter (principal)
CPT/HCPCS: 99213

== ENCOUNTER → 2025-01-23 15:57 | Outpatient (BNV) | payer OTHER, SELFPAY | PROVIDERS: Admitting Provider Student in an Organized Health Care Education/Training Program; Visit Provider Student in an Organized Health Care Education/Training Program | DX: N28.89 Other specified disorders of kidney and ureter (principal) | CPT/HCPCS: 50592; 77013 ==

== ENCOUNTER 2025-01-23 18:52 | Outpatient (BNV) | payer OTHER, SELFPAY | END 2025-01-24 09:30 | PROVIDERS: Admitting Provider Student in an Organized Health Care Education/Training Program; Visit Provider Radiology Diagnostic Radiology | DX: R93.422 Abnormal radiologic findings on diagnostic imaging of left kidney (principal); K68.3 Retroperitoneal hematoma; R06.02 Shortness of breath | CPT/HCPCS: 37244; 71045; 74150 ==

== ENCOUNTER 2025-01-23 18:52 | Inpatient (IN) | payer OTHER, SELFPAY ==
[2025-01-17 09:45] VITALS: BMI 31.9
--- OUTSIDE RECORDS SUMMARY | 2025-01-17 13:14 | XMS_ITS | Clinical Summary ---
Author Organization [employer] Address [address] [place] [address] 7t [place] [address] Care Team Providers Care Afternoon Babysitter Name Role Phone Unavailable Primary Care Provider [...] Vaccine ( season) 2024 05/24/2022, 06/22/2021, 11/04/2020 Tobacco Screening 05/11/2024 05/11/2023 DTaP/Tdap/Td Vaccines (2 - Td or Tdap) 12/16/2024 12/16/2014 Influenza Vaccine (Season Ended) 2025 05/08/2023, 04/27/2022, 04/20/2021, Additional history exists RSV Patients and Patients Aged 60 years [...] Most Recently Relevant to Health Maintenance Insurance [facility]
--- NOTE | 2025-01-20 13:29 | HO.ANESPROP2 ---
Documented by User: Ewelina Busch NP 01/21/25 14:40 HPI - Anesthesia Eval Consult details Narrative: 54yo M for Kidney Cryo-Ablation Hold 4 Hrs (Microwave Ablation) Labs ordered by radiologist Anesthesia Pre-Procedure Meds Is the patient on any of the following meds?: GLP1/DPP4 and SGLT2 Inhib PMFSH Active Problems Active Problems: All Active Problems Renal mass (Acute) Balanitis (Acute) Renal mass of unknown nature (Acute) Abdominal pain (Acute) Tinea cruris (Acute) Constipation (Acute) Lumbar muscle pain (Acute) Diabetes mellitus with coincident hypertension (Acute) Obesity (Acute) Physical exam (Acute) Hip pain (Acute) Dental abscess (Acute) Hyperlipidemia (Acute) Diabetes type 2, uncontrolled (Acute) Diabetic neuropathy associated with type 2 diabetes mellitus (Acute) Hypertension (Acute) Vitamin D deficiency (Acute) Past Medical History Medical History Numbness Seizures Back pain Bronchitis Hyperlipidemia Diabetes type 2, uncontrolled Diabetic neuropathy associated with type 2 diabetes mellitus Hypertension Vitamin D deficiency Family History Family History Father Lung cancer Mother Pacemaker Maternal Grandmother Diabetes Brother CAD (coronary artery disease) Sister Hypertension Sister Myocardial infarction Sister Hearing problem Surgical History Surgical History History of tonsillectomy Social History Social History Housing: Apartment Are you a primary resident care associate to a significant other at home: No Do you presently have visiting nurse or other home services: No Alcohol intake: never Patient Tobacco Use Status: Never used Tobacco Tobacco use type: Cigarette e-Cigarette/Vaping Use: Never Used Second Hand Smoke Exposure: No Use of substances other than those prescribed or required for medical reasons: No Have you been hit, kicked, punched, or otherwise hurt by someone within the past year? If so, by whom?: No Are you DNR?: No Advance Directives: No Advance Directives Information Provided: Yes Advance Directives on File: No Poor oral hygiene: No service: No Current occupational status: unemployed and disabled Cognitive needs: No Hearing needs: No Vision needs: No Meds Allergies Allergy/AdvReac Type Severity Reaction Status Date / Time metformin Allergy Unknown Unknown Verified 12/20/24 10:54 Home Medications ?Medication ?Instructions ?Recorded ?Confirmed ?Last Taken ?Type atorvastatin 40 mg tablet 40 mg PO BEDTIME 01/17/25 01/17/25 01/22/25 History pioglitazone 45 mg tablet 45 mg PO BEDTIME 01/17/25 01/17/25 01/22/25 History Exam Height,Weight and Vital Signs: Height 6 ft 1 in Weight 109.769 kg Assessment and Plan Assessment Anesthesia Assessment: Chart Reviewed Documented by User: Keerthi Narvaez MD 01/23/25 16:42 PMFSH Past Medical History Medical History Numbness Seizures Back pain Bronchitis Hyperlipidemia Diabetes type 2, uncontrolled Diabetic neuropathy associated with type 2 diabetes mellitus Hypertension Vitamin D deficiency Family History Family History Father Lung cancer Mother Pacemaker Maternal Grandmother Diabetes Brother CAD (coronary artery disease) Sister Hypertension Sister Myocardial infarction Sister Hearing problem Surgical History Surgical History History of tonsillectomy History of Problems with Anesthesia: No Social History Social History Housing: Apartment Are you a primary resident care associate to a significant other at home: No Do you presently have visiting nurse or other home services: No Alcohol intake: never Patient Tobacco Use Status: Never used Tobacco Tobacco use type: Cigarette e-Cigarette/Vaping Use: Never Used Second Hand Smoke Exposure: No Use of substances other than those prescribed or required for medical reasons: No Have you been hit, kicked, punched, or otherwise hurt by someone within the past year? If so, by whom?: No Are you DNR?: No Advance Directives: No Advance Directives Information Provided: Yes Advance Directives on File: No Poor oral hygiene: No service: No Current occupational status: unemployed and disabled Cognitive needs: No Hearing needs: No Vision needs: No Meds Allergies Allergy/AdvReac Type Severity Reaction Status Date / Time metformin Allergy Unknown Unknown Verified 12/20/24 10:54 Home Medications ?Medication ?Instructions ?Recorded ?Confirmed ?Last Taken ?Type atorvastatin 40 mg tablet 40 mg PO BEDTIME 01/17/25 01/17/25 01/22/25 History pioglitazone 45 mg tablet 45 mg PO BEDTIME 01/17/25 01/17/25 01/22/25 History Exam Airway Mallampati Class: III TM Dist: >3cm Neck ROM: Full Loose/Missing/Broken Teeth: No Heart: RRR Lungs: CTA Assessment and Plan Assessment Anesthesia Assessment: Anesthesia Plan Discussed Final Anesthetic Review History of Problems with Anesthesia: No NPO: Yes ASA Class: III Final Preanesthetic Review: Meds/Allgs Chart Reviewed, Consent Obtained/Reviewed and Anes Risks/Benef Reviewed Patient Risk: Intermediate Procedure Risk: Low Anesthetic Plan Anesthetic Plan: GA Disposition: Standard PACU
[2025-01-23] VITALS (15 sets, daily range): BP systolic 123–167; BP diastolic 59–93; PULSE 82–101; RESP 16–18; TEMP 36.1–36.8; O2SAT 93–99
--- NOTE | ~2025-01-23 | CT_ITS ---
PROCEDURES: CT-guided percutaneous microwave ablation left renal mass HISTORY: Left renal mass COMPLICATIONS: None ESTIMATED BLOOD LOSS: < 5 ml CONTRAST: None SEDATION: General anesthesia. See separately reported notes PROCEDURE NOTE: The procedure, risks, benefits, and alternatives were carefully explained to the patient and written informed consent was obtained. The patient was put under general anesthesia and then placed prone on the CT table. A timeout was performed. A limited CT of the abdomen was performed to localize the left kidney mass. The patient was prepped and draped in usual sterile fashion. The skin and deeper soft tissues were anesthetized with lidocaine. Under CT guidance, a Newsgrape microwave ablation probe was advanced to the center of the left renal mass. Given the proximity of adjacent bowel, we elected to perform hydrodissection. A 4 [place] Nextance centesis catheter was placed adjacent to the renal mass and approximately 60 mL of fluid was delivered. Images show satisfactory hydrodissection with fluid plane of dissection between the mass and the adjacent bowel. We then proceeded with the microwave ablation utilizing 150 wu for 4 minutes. The microwave probe and Yueh centesis catheter were removed. Dressings were applied. Post ablation CT images demonstrated small amount of parenchymal and perirenal gas likely secondary to the ablation. There is no evidence of significant hemorrhage or other complication. The patient was stable after the procedure and was transferred to the post anesthesia care unit. CT/CT Guided RF Ablation Renal Impression: CT-guided percutaneous microwave ablation of left renal mass Electronically signed by: Rich Ramirez MD 01/23/2025 05:50 PM EDT
--- NOTE | ~2025-01-23 | XR_ITS ---
EXAMINATION: XR CHEST 1 VIEW HISTORY: Sob COMPARISON: There are no prior studies available for comparison. FINDINGS: A single AP portable view of the chest performed at 9:23 AM is submitted. There are low lung volumes. There is patchy opacity at the left lung base consistent with atelectasis or pneumonia. The right lung is clear. There is no pleural effusion, pneumothorax, or pulmonary vascular congestion. The heart is normal in size. The bones are intact. XR/XR chest 1V IMPRESSION: Low lung volumes. Patchy opacity at the left lung base, consistent with atelectasis or pneumonia. Follow-up is recommended to document resolution. Electronically signed by: Tony Ramos MD 01/24/2025 09:44 AM EDT
--- NOTE | ~2025-01-23 | CT_ITS ---
EXAMINATION: CT ABDOMEN WITHOUT IV CONTRAST HISTORY: Abd pain , anemia s/p renal tumor ablation COMPARISON: Correlation is made with CT images for a left renal ablation dated 01/23/2025. TECHNIQUE: CT scan of the abdomen was performed without contrast using standard departmental protocol. Coronal and sagittal reformatted images were generated and reviewed. Oral contrast material was not administered at the request of the referring physician. This CT exam was performed with one or more of the following dose reduction techniques: automated exposure control, adjustment of the mA and/or kV according to patient size, use of iterative reconstruction technique. DLP: 753 mGy-cm FINDINGS: LOWER CHEST: There is subsegmental atelectasis at the left lung base and a small left pleural effusion. CARDIOVASCULATURE: The heart is normal in size. There is no pericardial effusion. LIVER: The liver is normal in size and contour. The liver has an unremarkable unenhanced appearance. GALLBLADDER / BILE DUCTS: There is cholelithiasis. There is no intra or extrahepatic biliary ductal dilatation. SPLEEN: The spleen is normal in size and has an unremarkable unenhanced appearance. PANCREAS: The pancreas has an unremarkable unenhanced appearance. ADRENAL GLANDS: Unremarkable. KIDNEYS/RETROPERITONEUM: There is a large left renal subcapsular hematoma measuring up to 5 cm in thickness. There is mass effect on the kidney with parenchymal compression. There is also hyperdense hemorrhage in the left pararenal space, predominantly medial and inferior to the kidney. Retroperitoneal hemorrhage is seen extending into the pelvis. There is an 8 mm calculus in the left renal pelvis. There is no hydronephrosis. No right kidney has an unremarkable unenhanced appearance. LYMPH NODES: No retroperitoneal lymphadenopathy is identified in the abdomen or pelvis. VASCULATURE: The abdominal aorta is normal in caliber. MESENTERY/PERITONEUM: There is a smaller free fluid around the liver. No masses. There is no free intraperitoneal gas. STOMACH: The stomach is collapsed, limiting evaluation. SMALL BOWEL: The small bowel is normal in caliber. COLON: The colon is unremarkable. BONES / SOFT TISSUES: No suspicious bony or soft tissue abnormalities. CT/CT abdomen wo IV con IMPRESSION: Large left renal subcapsular hematoma causing parenchymal compression. Additional hemorrhage in the left pararenal space and retroperitoneal hemorrhage, as described. 8 mm calculus in the left renal pelvis. These findings were discussed with Dr. Glo Buckley on 01/24/2025 at 11:35 AM. Electronically signed by: Tony Ramos MD 01/24/2025 11:40 AM EDT
--- NOTE | ~2025-01-23 | IR_ITS ---
CLINICAL HISTORY: Perirenal retroperitoneal hemorrhage status post microwave ablation of left renal mass. Patient had hypotensive episode with concern for persistent bleeding PROCEDURES: Left renal angiogram COMPLICATIONS: None. ESTIMATED BLOOD LOSS: <5 ml FLUOROSCOPY TIME: min FINDINGS/TECHNIQUE The procedure, risks, benefits, and alternatives were carefully explained to patient, and written informed consent was obtained. The patient was placed supine on the fluoroscopy table. A timeout was performed. The right groin was prepped and draped in usual sterile fashion. Local anesthesia was administered to the access site with lidocaine. Preliminary ultrasound demonstrates widely patent right common femoral artery. Under ultrasound guidance with permanent recordings and direct visualization of the needle entry into the patent vessel lumen, the right common femoral artery was accessed with a 5 Fr micropuncture set. A 5 [place] sheath was placed. Angiogram through the sheath demonstrates the puncture site to be above the bifurcation with good flow down the leg. The left renal artery was selected with a 5 [place] Sos Omni 2 catheter. Left renal angiogram in multiple obliques does not demonstrate any active extravasation. There is question of irregularity to an upper pole branch vessel. We introduced a 2.4 [place] catheter which we used to select 2 separate upper pole branches leading towards site of previously ablated tumor. Selective angiogram does not demonstrate any active extravasation or arterial abnormality. We therefore elected to terminate the procedure. The catheter was removed. Lesion angiogram through the sheath does not demonstrate any evidence of injury to the access vessel with good flow down the visualized portion of the upper leg. The sheath was removed and hemostasis was achieved with a Celt device and manual compression. A dressing was applied. Patient tolerated procedure well with no immediate complications. Patient was transferred back to the ICU in stable condition IR/IR embolization hemorrhage IMPRESSION: Left renal angiogram with attention to region of previously ablated left renal tumor was performed. No active extravasation was identified. PLAN: Trend H&H. Monitor right groin access site for hematoma. Electronically signed by: Rich Ramirez MD 01/24/2025 05:16 PM EDT
[2025-01-23 14:09] LABS: MANUAL DIFF FLAG NO
[2025-01-23 14:12] LABS: Hematocrit 46.2 % (42.0-52.0); Hemoglobin 16.2 g/dl (14.0-18.0); Imm Gran Abs Auto 0.02 X10*3/uL (0.00-0.03); Imm Gran Pct Auto 0.3 % (0.0-0.4); Lymphocytes Absolute Auto 2.0 X10*3/uL (1.2-4.9); Mean Corpuscular HGB Conc 35.1 g/dl (31.0-36.0); Mean Corpuscular Hemoglobin 31.7 pg (27.0-33.0); Mean Corpuscular Volume 90.4 fL (80.0-98.0); NRBC Abs Auto 0.000 X10*3/uL (0.0-0.012); NRBC Pct Auto 0.0 /100WBC (0.0-0.2); Platelet Count 215 X10*3/uL (160-400); Red Blood Count 5.11 X10*6/uL (4.60-5.80); White Blood Count 7.4 X10*3/uL (4.8-10.8)
[2025-01-23 14:17] LABS: INTERNATIONAL NORM RATIO 1.0 (0.9-1.1); Prothrombin Time 11.3 SEC (10.9-12.4)
[2025-01-23] MEDS: Albuterol Sulfate (0.083%) 2.5 MG/3 ML VIAL.NEB INHALE (14:19)
[2025-01-23 14:20] LABS: Partial Thromboplastin Time 32.8 SEC (26.0-36.8)
[2025-01-23 14:21] LABS: Glucose, Whole Blood 222 mg/dL (60-115)
[2025-01-23] MEDS: Lactated Ringers 1,000 ML 100 ML IVCONT (14:26)
[2025-01-23 14:32] LABS: Anion Gap 13 (12-20); Blood Urea Nitrogen 14 mg/dL (9-16); Calcium 9.7 mg/dL (8.4-10.2); Carbon Dioxide 27 mmol/L (22-29); Chloride 102 mmol/L (96-108); Creatinine Clr Calc Pharmacy 137.2; Estimated Glomerular Filt Rate > 60; Potassium 4.1 mmol/L (3.3-5.1); Sodium 138 mmol/L (135-145)
[2025-01-23 15:34] LABS: Glucose, Whole Blood 234 mg/dL (60-115)
--- NOTE | 2025-01-23 15:41 | PC.NURSE ---
Dr. Narvaez made aware repeat POC 234.
--- NOTE | 2025-01-23 16:44 | HO.ANESPROP2 ---
[facility] [place] Active Problems Active Problems: All Active Problems (Updated 01/17/25 @ 09:26 by Bella Delgado RN) Renal mass (Acute) Balanitis (Acute) Renal mass of unknown nature (Acute) Abdominal pain (Acute) Tinea cruris (Acute) Constipation (Acute) Lumbar muscle pain (Acute) Diabetes mellitus with coincident hypertension (Acute) Obesity (Acute) Physical exam (Acute) Hip pain (Acute) Dental abscess (Acute) Hyperlipidemia (Acute) Diabetes type 2, uncontrolled (Acute) Diabetic neuropathy associated with type 2 diabetes mellitus (Acute) Hypertension (Acute) Vitamin D deficiency (Acute) Past Medical History Medical History Numbness Seizures Back pain Bronchitis Hyperlipidemia Diabetes type 2, uncontrolled Diabetic neuropathy associated with type 2 diabetes mellitus Hypertension Vitamin D deficiency Family History Family History Father Lung cancer Mother Pacemaker Maternal Grandmother Diabetes Brother CAD (coronary artery disease) Sister Hypertension Sister Myocardial infarction Sister Hearing problem Surgical History Surgical History History of tonsillectomy History of Problems with Anesthesia: No Social History Social History Housing: Apartment Are you a primary home care aide to a significant other at home: No Do you presently have visiting nurse or other home services: No Alcohol intake: never Patient Tobacco Use Status: Never used Tobacco Tobacco use type: Cigarette e-Cigarette/Vaping Use: Never Used Second Hand Smoke Exposure: No Use of substances other than those prescribed or required for medical reasons: No Currently Displaying Signs/Symptoms of Drug Intoxication Withdrawal: No Have you been hit, kicked, punched, or otherwise hurt by someone within the past year? If so, by whom?: No Are you DNR?: No Advance Directives: No Advance Directives Information Provided: Yes Advance Directives on File: No Poor oral hygiene: No service: No Current occupational status: unemployed and disabled Cognitive needs: No Hearing needs: No Vision needs: No Meds Allergies Allergy/AdvReac Type Severity Reaction Status Date / Time metformin Allergy Unknown Unknown Verified 12/20/24 10:54 Active Medications: Current Medications Albuterol/Ipratropium (Albuterol/Iprat 2.5/0.5mg 3 Ml Ampul.Neb) 3 ml INHALE ONCE PRN PRN Reason: Bronchospasm/wheezing Stop: 01/23/25 22:43 Fentanyl (Fentanyl Citrate/Pf 100 Mcg/2 Ml Vial) 25 mcg IVPUSH Q5M PRN PRN Reason: Pain, Moderate to Severe (Pain Scale 4-10) Stop: 01/23/25 22:43 Haloperidol Lactate (Haloperidol Lactate 5 Mg/Ml Vial) 1 mg IVPUSH ONCE PRN PRN Reason: intractable nausea Stop: 01/23/25 22:43 Lactated Ringer's (Lr) 1,000 mls @ 100 mls/hr IVCONT .Q10H MXAIMINO Last Admin: 01/23/25 14:26 Dose: 100 mls/hr Acetaminophen (Ofirmev) 1,000 mg in 100 mls @ 400 mls/hr IV ONCE PRN PRN Reason: Pain, Mild (Pain Scale 1-3) Stop: 01/23/25 22:43 Naloxone HCl (Naloxone Hcl 0.4 Mg/Ml Vial) 0.04 mg IVPUSH Q5M PRN PRN Reason: Excessive sedation or RR < 8 Ondansetron HCl (Ondansetron Hcl 4 Mg/2 Ml Vial) 4 mg IVPUSH ONCE PRN PRN Reason: Nausea and Vomiting Stop: 01/23/25 22:43 Oxycodone HCl (Oxycodone Hcl Immed Release 5 Mg Tablet) 5 mg PO ONCE PRN PRN Reason: Pain, Moderate(Pain Scale 4-6) if no IV Access Stop: 01/23/25 22:43 Home Medications ?Medication ?Instructions ?Recorded ?Confirmed ?Last Taken ?Type atorvastatin 40 mg tablet 40 mg PO BEDTIME 01/17/25 01/17/25 01/22/25 History pioglitazone 45 mg tablet 45 mg PO BEDTIME 01/17/25 01/17/25 01/22/25 History empagliflozin 25 mg tablet 25 mg PO DAILY 01/23/25 01/23/25 01/18/25 History (Jardiance) Exam Height,Weight and Vital Signs: Height 6 ft 1 in Weight 109.769 kg Last Vital Signs Temp 98.3 F 01/23/25 14:08 Pulse 101 H 01/23/25 14:08 Resp 18 06/26/25 14:08 BP 162/93 H 01/23/25 14:08 Pulse Ox 94 01/23/25 14:08 O2 Del Method Room Air 01/23/25 14:08 Pertinent Lab Results Pertinent Lab Results: Laboratory Tests 01/23/25 01/23/25 01/23/25 14:04 14:18 15:30 WBC 7.4 RBC 5.11 Hgb 16.2 Hct 46.2 MCV 90.4 MCH 31.7 MCHC 35.1 RDW 12.7 Plt Count 215 MPV 10.1 Immature Gran % (Auto) 0.3 Neut % (Auto) 63.1 Lymph % (Auto) 26.5 [place] % (Auto) 8.4 Eos % (Auto) 1.4 Baso % (Auto) 0.3 Lymph # (Auto) 2.0 [place] # (Auto) 0.6 Eos # (Auto) 0.1 Baso # (Auto) 0.0 Abs Immat Gran (auto) 0.02 Absolute Neuts (auto) 4.7 Absolute Nucleated RBC 0.000 Nucleated RBC % (auto) 0.0 PT 11.3 INR 1.0 APTT 32.8 Sodium 138 Potassium 4.1 Chloride 102 Carbon Dioxide 27 Anion Gap 13 BUN 14 Creatinine 0.79 Estim Creat Clear Calc 137.2 Estimated GFR > 60 POC Glucose 222 H 234 H Random Glucose 244 H Calcium 9.7 Blood Type O Positive Antibody Screen NEGATIVE Assessment and Plan Final Anesthetic Review History of Problems with Anesthesia: No
--- NOTE | 2025-01-23 17:20 | PC.NURSE ---
pt continues to be monitored by Anesthesia.VSS
[2025-01-23] MEDS: oxyCODONE HCl Immed Release 5 MG TABLET PO (18:45)
--- NOTE | 2025-01-23 19:00 | PM.IMHP ---
History of Present Illness Date of Service: 01/23/25 Attending physician on admission: George Cosby Chief Complaint: s/p renal biopsy obs per urology Pt is a 54 yo male with PMH DMII, HTN, HLD, Obesity, anxiety, constipation, VIT D deficiency is s/p L renal bx with urology that went well with no complications. Urology service asked that pt be admitted for observartion overnight and no labs or imaging would be required (Rich Solis). Pt seen and examined once on third floor, out of PACU. Pt complaining of abdominal discomfort as he needs to move his bowels but can's. Pt has chronic issues with constipation. Patient agreeable to Dulcolax suppository and milk of magnesia. We will also order antiemetic for mild nausea reported. Abdominal exam unremarkable. Biopsy site left flank area is stable with no ecchymosis, swelling or redness. Patient has been able to void since surgery. Patient has also been persistently hypertensive since the procedure. Hydralazine 10 mg IV x1 ordered with q.6 coverage for systolic greater than 160. Patient should be able to resume his lisinopril in the a.m. as renal function has been stable. Reviewed plan of care with nursing and orders will be implemented. Nursing asked to reach out to this blurb writer for any other concerns. Hemodynamics currently stable. Review of Systems Review of Systems: Patient denies any discomfort or pain in the left flank area where the biopsy was performed. Patient is reporting abdominal pressure as he feels he needs to move his bowels but is unable to do so. This is status post anesthesia. Reassurance provided and treatment plan reviewed. Patient denies any chest pain, shortness of breath at rest or with exertion. Patient is experiencing some mild nausea. Patient denies any issues with vomiting. Patient is belching but denies any flatulence. [facility] Medical History Numbness Seizures Back pain Bronchitis Hyperlipidemia Diabetes type 2, uncontrolled Diabetic neuropathy associated with type 2 diabetes mellitus Hypertension Vitamin D deficiency Cognitive capacity: A/O X3 Functional capacity: independent ambulation Family History Father Lung cancer Mother Pacemaker Maternal Grandmother Diabetes Brother CAD (coronary artery disease) Sister Hypertension Sister Myocardial infarction Sister Hearing problem Surgical History History of tonsillectomy Social History Housing: Apartment Are you a primary neurocritical care physician to a significant other at home: No Do you presently have visiting nurse or other home services: No Alcohol intake: never Patient Tobacco Use Status: Never used Tobacco Tobacco use type: Cigarette e-Cigarette/Vaping Use: Never Used Second Hand Smoke Exposure: No service: No Current occupational status: unemployed and disabled Cognitive needs: No Hearing needs: No Vision needs: No Ebola Risk: Travel/Contact With Anyone From Affected Area/s: No Has Patient Experienced Ebola Symptoms: No Meds Allergies Allergy/AdvReac Type Severity Reaction Status Date / Time metformin Allergy Unknown Unknown Verified 12/20/24 10:54 Active Medications: Current Medications Albuterol Sulfate (Albuterol Sulfate 90 Mcg 8 Gm Inhaler) 2 puff INHALE Q4H PRN PRN Reason: shortness of breath or wheezin Albuterol/Ipratropium (Albuterol/Iprat 2.5/0.5mg 3 Ml Ampul.Neb) 3 ml INHALE ONCE PRN PRN Reason: Bronchospasm/wheezing Stop: 01/23/25 22:43 Clotrimazole (Clotrimazole 1 % Cream 15 Gm Tube) 1 appl TOPICAL BID MAXIMINO Docusate Sodium (Docusate Sodium 100 Mg Capsule) 100 mg PO BID MAXIMINO Fentanyl (Fentanyl Citrate/Pf 100 Mcg/2 Ml Vial) 25 mcg IVPUSH Q5M PRN PRN Reason: Pain, Moderate to Severe (Pain Scale 4-10) Stop: 01/23/25 22:43 Gabapentin (Gabapentin 100 Mg Capsule) 100 mg PO BEDTIME MAXIMINO Haloperidol Lactate (Haloperidol Lactate 5 Mg/Ml Vial) 1 mg IVPUSH ONCE PRN PRN Reason: intractable nausea Stop: 01/23/25 22:43 Lactated Ringer's (Lr) 1,000 mls @ 100 mls/hr IVCONT .Q10H MAXIMINO Last Admin: 01/23/25 14:26 Dose: 100 mls/hr Lisinopril (Lisinopril 20 Mg Tablet) 20 mg PO DAILY [facility]; Protocol Naloxone HCl (Naloxone Hcl 0.4 Mg/Ml Vial) 0.04 mg IVPUSH Q5M PRN PRN Reason: Excessive sedation or RR < 8 Ondansetron HCl (Ondansetron Hcl 4 Mg/2 Ml Vial) 4 mg IVPUSH ONCE PRN PRN Reason: Nausea and Vomiting Stop: 01/23/25 22:43 Oxycodone HCl (Oxycodone Hcl Immed Release 5 Mg Tablet) 5 mg PO Q6H PRN On Hold: 01/23/25 18:06 PRN Reason: Pain, Severe (Pain Scale 7-10) Polyethylene Glycol (Polyethylene Glycol 3350 17 Gm Powd.Pack) 17 gm PO DAILY [facility] Senna (Sennosides 8.6 Mg Tablet) 17.2 mg PO BEDTIME PRN PRN Reason: Constipation Vitamin D (Cholecalciferol (Vitamin D3) 25 Mcg Tablet) 50 mcg PO DAILY [facility] Home Medications ?Medication ?Instructions ?Recorded ?Confirmed ?Last Taken ?Type atorvastatin 40 mg tablet 40 mg PO BEDTIME 01/17/25 01/17/25 01/22/25 History pioglitazone 45 mg tablet 45 mg PO BEDTIME 01/17/25 01/17/25 01/22/25 History empagliflozin 25 mg tablet 25 mg PO DAILY 01/23/25 01/23/25 01/18/25 History (Jardiance) Physical Exam Vital Signs and Narrative: Vital Signs: Last Vital Signs Temp 97.8 F 01/23/25 17:45 Pulse 92 01/23/25 18:45 Resp 18 01/23/25 18:45 BP 145/82 H 01/23/25 18:45 Pulse Ox 98 01/23/25 18:45 O2 Del Method Room Air 01/23/25 18:45 BMI result Body Mass Index 31.9 Alert and orientated X3, able to give good history. Neuro: CN II-X11 intact, no deficits, visual acuity intact EYES: PERRLA, EOM intact, sclerae nonicteric ENT: hearing intact, no issues with swallowing, uvula midline, lips moist, nares patent no epistaxis Cardiac: S1 S2 RRR, no murmur, no JVD, no edema in Lower ext Pulmonary: lungs clear to auscultation B Abdominal: BS mildly active in all 4 quadrants, no guarding, tenderness, rebounding, abdomen obese and distended MSK: strength 5/5 upper and lower extremities : no CVA tenderness no bladder distension Extremities: no edema in lower extremities, PT and DP pulses palpable +2 Psych: mood anxious, judgement and insight good Skin: Left flank area where biopsy was performed is stable with clean dry dressing and no redness or ecchymosis identified. Results Labs 01/23/25 14:04 01/23/25 14:04 Labs: Laboratory Results - last 24 hr 01/23/25 01/23/25 01/23/25 14:04 14:18 15:30 MCV 90.4 MCH 31.7 MCHC 35.1 RDW 12.7 Plt Count 215 MPV 10.1 Immature Gran % (Auto) 0.3 Neut % (Auto) 63.1 Lymph % (Auto) 26.5 [place] % (Auto) 8.4 Eos % (Auto) 1.4 Baso % (Auto) 0.3 Lymph # (Auto) 2.0 [place] # (Auto) 0.6 Eos # (Auto) 0.1 Baso # (Auto) 0.0 Abs Immat Gran (auto) 0.02 Absolute Neuts (auto) 4.7 Absolute Nucleated RBC 0.000 Nucleated RBC % (auto) 0.0 PT 11.3 INR 1.0 APTT 32.8 Anion Gap 13 Estim Creat Clear Calc 137.2 Estimated GFR > 60 POC Glucose 222 H 234 H Random Glucose 244 H Calcium 9.7 Blood Type O Positive Antibody Screen NEGATIVE Assessment and Plan (1) Renal mass: Status: Acute Plan Pt is a 54 yo male with PMH DMII, HTN, HLD, Obesity, VIT D deficiency is s/p renal bx with urology that went well with no complications. Urology service asked that pt be admitted for observartion overnight and no labs or imaging would be required (Rich Solis). S/p Renal Biopsy -Urology requested admission for observation, no complications reported during procedure -No labs or imaging required per urology (Rich Ramirez) -IVF's continue -Pain mgmt in place -Diabetic cardiac diet started -If pt is stable in AM, can be discharged, follow up with urology as an outpatient -Urology consult placed per attending, Dr. Cosby HTN -Hydralazine one time IV -resume lisinopril in AM, renal fx has been stable Constipation -Patient expressing concern over need to move bowels but feels unable to do so status post anesthesia -Dulcolax suppository ordered -Milk of Mag ordered -Will continue MiraLax and senna as part of patient's usual regimen -Abdominal exam reassuring, no indication for scanning or further labs at this time DMII -SSI -Diabetic diet DVT prophylaxis: held secondary to biopsy Plan for DC in AM if pt is stable. Quality Stroke Does the patient have a stroke diagnosis?: No Reason for No Anti-thrombotic by Day Two: Contraindicated VTE Prior VTE?: No VTE Risk Level:: Medical - moderate - high VTE Device Contraindication: N/A - Device Ordered VTE Drug Contraindication: N/A - Med Ordered
--- NOTE | 2025-01-23 19:43 | PHA.MEDREC ---
Pharmacy Consult ? Medication Reconciliation Pharmacy reviewed med rec done by nursing. Claims match what is confirmed.
[2025-01-23 20:47] LABS: Glucose, Whole Blood 335 mg/dL (60-115)
[2025-01-23] MEDS: Milk of Magnesia 30 ML ORAL.SUSP PO (21:41)
[2025-01-24] VITALS (34 sets, daily range): BP systolic 74–150; BP diastolic 40–85; PULSE 81–124; RESP 16–28; TEMP 36.1–37.2; O2SAT 92–98; BMI 78.9
--- NOTE | 2025-01-24 | ECG_ITS ---
Test Reason : tachycardia Blood Pressure : */* mmHG Vent. Rate : 107 BPM Atrial Rate : 107 BPM P-R Int : 146 ms QRS Dur : 88 ms QT Int : 316 ms P-R-T Axes : 31 15 10 degrees QTcB Int : 421 ms Sinus tachycardia Otherwise normal ECG No previous ECGs available Referred By: Glo Buckley Electronically Signed By: TA BENOIT
[2025-01-24] MEDS: Lactated Ringers 1,000 ML 100 ML IVCONT (00:38)
[2025-01-24 02:58] LABS: Glucose, Whole Blood 483 mg/dL (60-115)
[2025-01-24] MEDS: oxyCODONE HCl Immed Release 5 MG TABLET PO ×3 (03:24→21:15)
--- NOTE | 2025-01-24 04:48 | PC.NURSE ---
at 4 am pt was not able to void after x2 bathroom trips , bladder scan for 632 ml notified MD adkins.cath ordered drained 800 ml yellow urine . PT more comfortable sleeping
--- NOTE | 2025-01-24 04:54 | PC.NURSE ---
at 3 am pt found very uncomfortable ; skin clammy checked [id number] MD notified insulin regular iv ordered 10 units will recheck BS .
[2025-01-24 05:25] LABS: Glucose, Whole Blood 467 mg/dL (60-115)
--- NOTE | 2025-01-24 05:58 | PC.NURSE ---
at 545 am BS rechecked [id number] md ordered labs and regular insulin iv 15 unts . Nursing sugar refinery supervisor was also included in notification about high sugars . pt is still not feeling well he feels dry , dsg to left back side D/I
[2025-01-24 06:21] LABS: VBG HCO3 22 mmol/L (22-26); VBG O2 % Saturation 61.0 %
[2025-01-24 06:21] LABS: Venous Blood Gas Refer to POC result
[2025-01-24 06:22] LABS: Hematocrit 35.4 % (42.0-52.0); Hemoglobin 12.1 g/dl (14.0-18.0); Imm Gran Abs Auto 0.11 X10*3/uL (0.00-0.03); Imm Gran Pct Auto 0.6 % (0.0-0.4); Lymphocytes Absolute Auto 0.6 X10*3/uL (1.2-4.9); MANUAL DIFF FLAG SCAN; Mean Corpuscular HGB Conc 34.2 g/dl (31.0-36.0); Mean Corpuscular Hemoglobin 31.8 pg (27.0-33.0); Mean Corpuscular Volume 92.9 fL (80.0-98.0); NRBC Abs Auto 0.000 X10*3/uL (0.0-0.012); NRBC Pct Auto 0.0 /100WBC (0.0-0.2); Platelet Count 251 X10*3/uL (160-400); Red Blood Count 3.81 X10*6/uL (4.60-5.80); SCAN SMEAR FLAG 1; White Blood Count 17.9 X10*3/uL (4.8-10.8)
[2025-01-24 06:58] LABS: Alanine Aminotransferase 13 U/L (0-40); Albumin Level 3.8 g/dL (3.5-5.0); Alkaline Phosphatase 59 U/L (39-117); Anion Gap 17 (12-20); Aspartate Amino Transferase 25 U/L (5-37); Blood Urea Nitrogen 22 mg/dL (9-16); Calcium 9.1 mg/dL (8.4-10.2); Carbon Dioxide 21 mmol/L (22-29); Chloride 98 mmol/L (96-108); Creatinine Clr Calc Pharmacy 78.0; Estimated Glomerular Filt Rate 53; Potassium 4.4 mmol/L (3.3-5.1); Sodium 132 mmol/L (135-145); Total Protein 5.6 g/dL (6.5-8.0)
[2025-01-24 07:30] LABS: Glucose, Whole Blood 413 mg/dL (60-115)
[2025-01-24 07:58] LABS: Hemoglobin A1C 201.7407 umol/L; Total Hemoglobin (HGBA1C) 3195.8175 umol/L
[2025-01-24] MEDS: Insulin Glargine,Hum.rec.anlog 100 UNIT/ML 10 ML VIAL 10 UNIT SUBCUT (08:33)
--- NOTE | 2025-01-24 09:15 | HO.POSTANES ---
Post Anesthesia Evaluation Post Anesthesia Evaluation Date of Service: 01/24/25 Vital Signs: Vital Signs Temp Pulse Resp BP Pulse Ox O2 Del Method 01/24/25 07:49 24 H 01/24/25 07:39 96.9 F 117 H 24 H 128/82 95 Room Air 01/24/25 03:31 98.5 F 124 H 18 150/85 H 98 Room Air 01/23/25 23:33 98.2 F 100 18 139/68 93 Room Air Anesthesia: General Endotracheal-GETA Mental Status: Awake Pain Control: Satisfactory Nausea/Vomiting: None Hydration: Adequate Anesthesia-Related Issues: No Anes. Related Issues
[2025-01-24 10:21] LABS: Venous Blood Gas Refer to POC result
[2025-01-24 10:24] LABS: ABG HCO3 22 mmol/L (22-26); ABG O2 % Saturation 99.0 %
--- NOTE | 2025-01-24 10:29 | PC.NURSE ---
Pt was lowered to the floor by two staff members while ambulating to the bathroom to void. States he felt dizzy, No c/o injury. Did not hit head. notified and came to the room.
--- NOTE | 2025-01-24 10:29 | MHC.CM.PN ---
PT REPORTS HE LIVES ALONE AND IS INDEPENDENT WITH CARE HE HAS NO DME, AND MEAL DELIVERY FOR SERVICES HE HAS NO HCP AND SAYS HE HAS NO ONE TO NAME PCP: JILLIAN PALMER DCP: HOME VIA PRIVATE TRANSPORT
[2025-01-24 10:42] LABS: Appearance Urine Clear; Glucose Urine UA >=1000 mg/dL (Negative); PH 5.5 (5.0-9.0); Specific Gravity - Urine >= 1.030 (1.005-1.025); UMIC TRIGGER UA YES
[2025-01-24 11:35] LABS: Glucose, Whole Blood 440 mg/dL (60-115)
--- NOTE | 2025-01-24 11:49 | P.PNIM_ITS ---
Subjective Subjective Date of Service: 01/24/25 Interval History: retroperitoneal haemorrage, hematoma [place] ? pneumonia vs atelactasis Review of Systems as above Review of Systems: Yes all other systems are reviewed and are negative Physical Exam 2 Vital Signs: Vital Signs: Last Vital Signs Temp 98.2 F 01/24/25 11:41 Pulse 81 01/24/25 11:46 Resp 16 01/24/25 11:46 BP 126/76 01/24/25 11:41 Pulse Ox 95 01/24/25 11:41 O2 Del Method Room Air 01/24/25 11:41 BMI result Body Mass Index 31.9 Appearance: Alert.? Oriented X3.? generlaised weak. cvs: rrr, [id number] ,tachycardia res: cair entry fair ,dimi now not that is somebody atshed at bases. abd: has some left flank pain , no rebound or guarding , bs present also has buttock soarness. ext pulses present , no cyanosis . neuro: axo3 , nonfocal. Objective Data Active Medications Clotrimazole (Clotrimazole 1 % Cream 15 Gm Tube) 1 appl TOPICAL BID [facility] Last Admin: 01/24/25 08:31 Dose: Not Given Documented By: SHAWN Non-Admin Reason: Patient Refused Dextrose (Dextrose 50 % 25 Gm/50 Ml Syringe) 25 gm IVPUSH Q15M PRN; Protocol PRN Reason: per Hypoglycemia Standing Ord. Docusate Sodium (Docusate Sodium 100 Mg Capsule) 100 mg PO BID [facility] Last Admin: 01/24/25 07:44 Dose: 100 mg Documented By: SHAWN Gabapentin (Gabapentin 100 Mg Capsule) 100 mg PO BEDTIME [facility] Last Admin: 01/23/25 21:43 Dose: 100 mg Documented By: ABEL Glucose (Glucose Gel 15 Gm Gel..Gram.) 15 gm PO Q15M PRN; Protocol PRN Reason: per Hypoglycemia Standing Ord. Hydralazine HCl (Hydralazine Hcl 20 Mg/Ml Vial) 10 mg IVPUSH Q6H PRN; Protocol PRN Reason: SBP > 160 Doxycycline Hyclate 100 mg/ (Sodium Chloride) 250 mls @ 166.67 mls/hr IV Q12H [facility] Last Admin: 01/24/25 10:34 Dose: 166.67 mls/hr Documented By: SHAWN Piperacillin Sod/Tazobactam (Sod 4.5 gm/ Sodium Chloride) 100 mls @ 200 mls/hr IV Q6H [facility] Sodium Chloride (Ns) 1,000 mls @ 125 mls/hr IVCONT .Q8H [facility] Insulin Glargine (Insulin Glargine,Hum.Rec.Anlog 100 Unit/Ml 10 Ml Vial) 10 unit SUBCUT DAILY [facility] Last Admin: 01/24/25 08:33 Dose: 10 unit Documented By: SHAWN Insulin Human Lispro (Insulin Lispro 100 Unit/Ml 3 Ml Vial) 0 unit SUBCUT QIDACHS [facility]; Protocol Last Admin: 01/24/25 07:43 Dose: 10 unit Documented By: SHAWN Levalbuterol HCl (Levalbuterol Hcl 1.25 Mg/3 Ml Vial.Neb) 1.25 mg INHALE Q4H [facility] Last Admin: 01/24/25 11:46 Dose: 1.25 mg Documented By: TOM Naloxone HCl (Naloxone Hcl 0.4 Mg/Ml Vial) 0.04 mg IVPUSH Q5M PRN PRN Reason: Excessive sedation or RR < 8 Ondansetron HCl (Ondansetron Hcl 4 Mg/2 Ml Vial) 4 mg IVPUSH Q4H PRN PRN Reason: Nausea and Vomiting Last Admin: 01/23/25 21:55 Dose: 4 mg Documented By: ABEL Oxycodone HCl (Oxycodone Hcl Immed Release 5 Mg Tablet) 5 mg PO Q6H PRN PRN Reason: Pain, Severe (Pain Scale 7-10) Last Admin: 01/24/25 08:33 Dose: 5 mg Documented By: SHAWN Polyethylene Glycol (Polyethylene Glycol 3350 17 Gm Powd.Pack) 17 gm PO DAILY [facility] Last Admin: 01/24/25 07:44 Dose: 17 gm Documented By: SHAWN Senna (Sennosides 8.6 Mg Tablet) 17.2 mg PO BEDTIME PRN PRN Reason: Constipation Last Admin: 01/24/25 00:35 Dose: 17.2 mg Documented By: ABEL Vitamin D (Cholecalciferol (Vitamin D3) 25 Mcg Tablet) 50 mcg PO DAILY [facility] Last Admin: 01/24/25 07:44 Dose: 50 mcg Documented By: SHAWN Labs 01/24/25 12:30 01/24/25 12:30 Labs: Laboratory Results - last 24 hr 01/23/25 01/23/25 01/23/25 14:04 14:18 15:30 MCV 90.4 MCH 31.7 MCHC 35.1 RDW 12.7 Plt Count 215 MPV 10.1 Immature Gran % (Auto) 0.3 Neut % (Auto) 63.1 Lymph % (Auto) 26.5 [place] % (Auto) 8.4 Eos % (Auto) 1.4 Baso % (Auto) 0.3 Lymph # (Auto) 2.0 [place] # (Auto) 0.6 Eos # (Auto) 0.1 Baso # (Auto) 0.0 Abs Immat Gran (auto) 0.02 Absolute Neuts (auto) 4.7 Absolute Nucleated RBC 0.000 Nucleated RBC % (auto) 0.0 Smear Tech's Comments PT 11.3 INR 1.0 APTT 32.8 O2 Saturation ABG pH at Pt Temp ABG pCO2 at Pt Temp ABG pO2 at Pt Temp ABG HCO3 ABG Base Excess (Actual) VBG pH VBG pCO2 VBG pO2 VBG HCO3 VBG O2 Saturation VBG Base Excess Anion Gap 13 Estim Creat Clear Calc 137.2 Estimated GFR > 60 POC Glucose 222 H 234 H Random Glucose 244 H Estimat Average Glucose Hemoglobin A1c % Lactic Acid Calcium 9.7 Total Bilirubin AST ALT Alkaline Phosphatase Total Protein Albumin Urine Color Urine Appearance Urine pH Ur Specific [place] Urine Protein Urine Glucose (UA) Urine Ketones Urine Blood Urine Nitrite Ur Leukocyte Esterase Urine RBC Urine WBC Ur Squamous Epith Cells Urine Bacteria Hyaline Casts Blood Type O Positive Antibody Screen NEGATIVE 01/23/25 01/24/25 01/24/25 20:43 02:51 05:21 MCV MCH MCHC RDW Plt Count MPV Immature Gran % (Auto) Neut % (Auto) Lymph % (Auto) [place] % (Auto) Eos % (Auto) Baso % (Auto) Lymph # (Auto) [place] # (Auto) Eos # (Auto) Baso # (Auto) Abs Immat Gran (auto) Absolute Neuts (auto) Absolute Nucleated RBC Nucleated RBC % (auto) Smear Tech's Comments PT INR APTT O2 Saturation ABG pH at Pt Temp ABG pCO2 at Pt Temp ABG pO2 at Pt Temp ABG HCO3 ABG Base Excess (Actual) VBG pH VBG pCO2 VBG pO2 VBG HCO3 VBG O2 Saturation VBG Base Excess Anion Gap Estim Creat Clear Calc Estimated GFR POC Glucose 335 H 483 H* 467 H* Random Glucose Estimat Average Glucose Hemoglobin A1c % Lactic Acid Calcium Total Bilirubin AST ALT Alkaline Phosphatase Total Protein Albumin Urine Color Urine Appearance Urine pH Ur Specific [place] Urine Protein Urine Glucose (UA) Urine Ketones Urine Blood Urine Nitrite Ur Leukocyte Esterase Urine RBC Urine WBC Ur Squamous Epith Cells Urine Bacteria Hyaline Casts Blood Type Antibody Screen 01/24/25 01/24/25 01/24/25 06:00 06:15 07:25 MCV 92.9 MCH 31.8 MCHC 34.2 RDW 12.7 Plt Count 251 MPV 10.6 Immature Gran % (Auto) 0.6 H Neut % (Auto) 90.2 H Lymph % (Auto) 3.5 L [place] % (Auto) 5.6 Eos % (Auto) 0.0 Baso % (Auto) 0.1 Lymph # (Auto) 0.6 L [place] # (Auto) 1.0 Eos # (Auto) 0.0 Baso # (Auto) 0.0 Abs Immat Gran (auto) 0.11 H Absolute Neuts (auto) 16.1 H Absolute Nucleated RBC 0.000 Nucleated RBC % (auto) 0.0 Smear Tech's Comments VERIFIED PT INR APTT O2 Saturation ABG pH at Pt Temp ABG pCO2 at Pt Temp ABG pO2 at Pt Temp ABG HCO3 ABG Base Excess (Actual) VBG pH 7.31 L VBG pCO2 43 VBG pO2 40 VBG HCO3 22 VBG O2 Saturation 61.0 VBG Base Excess -3.7 Anion Gap 17 Estim Creat Clear Calc 78.0 Estimated GFR 53 POC Glucose 413 H* Random Glucose 553 H* Estimat Average Glucose 180 Hemoglobin A1c % 7.9 H Lactic Acid Calcium 9.1 D Total Bilirubin 1.2 H AST 25 ALT 13 Alkaline Phosphatase 59 Total Protein 5.6 L Albumin 3.8 Urine Color Urine Appearance Urine pH Ur Specific [place] Urine Protein Urine Glucose (UA) Urine Ketones Urine Blood Urine Nitrite Ur Leukocyte Esterase Urine RBC Urine WBC Ur Squamous Epith Cells Urine Bacteria Hyaline Casts Blood Type Antibody Screen 01/24/25 01/24/25 01/24/25 10:20 10:34 11:29 MCV MCH MCHC RDW Plt Count MPV Immature Gran % (Auto) Neut % (Auto) Lymph % (Auto) [place] % (Auto) Eos % (Auto) Baso % (Auto) Lymph # (Auto) [place] # (Auto) Eos # (Auto) Baso # (Auto) Abs Immat Gran (auto) Absolute Neuts (auto) Absolute Nucleated RBC Nucleated RBC % (auto) Smear Tech's Comments PT INR APTT O2 Saturation 99.0 ABG pH at Pt Temp 7.39 ABG pCO2 at Pt Temp 35 ABG pO2 at Pt Temp 91 ABG HCO3 22 ABG Base Excess (Actual) -2.2 VBG pH VBG pCO2 VBG pO2 VBG HCO3 VBG O2 Saturation VBG Base Excess Anion Gap Estim Creat Clear Calc Estimated GFR POC Glucose 440 H* Random Glucose Estimat Average Glucose Hemoglobin A1c % Lactic Acid 4.7 H* Calcium Total Bilirubin AST ALT Alkaline Phosphatase Total Protein Albumin Urine Color Yellow Urine Appearance Clear Urine pH 5.5 Ur Specific [place] >= 1.030 H Urine Protein Negative Urine Glucose (UA) >=1000 H Urine Ketones Trace Urine Blood Moderate (2+) H Urine Nitrite Negative Ur Leukocyte Esterase Negative Urine RBC 0-2 Urine WBC 0-5 Ur Squamous Epith Cells 0-2 Urine Bacteria None Seen Hyaline Casts 0-2 Blood Type Antibody Screen Assessment and Plan (1) Hematoma: Status: Acute Plan 54 yo male with PMH DMII, HTN, HLD, Obesity, VIT D deficiency is 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 Urology service asked that pt be admitted for observartion overnight and no labs or imaging would be required (Rich Solis). acute bloodloss anemia and hypotesnion /hemtaoma: Status post renal procedure(ablation of a left renal tumor) added 1 liter ns bolus responded -bp in 90's patient still awake/alert, feel very tired. Hypotension due to hematoma and anemia/haemrrage. Added 1 PRBC. IR is considering for embolisation npo pneumonia vs atelactais has tachypnea /leucocytosis leucocytosis recative to renal hematoma /peritoneal haemorrage. tachycardia due to pain [place] mild due to dec po intake , nsaids use ,dehydration, hyperglycemia . acute lactic acidosis -sec to dm with hyperglycemia ,dec po intake ,albuterol use, not due to sepsis. incentive alexandro metry chest physiotherapy ID evaluation added Diabetes with hyperglycemia: Even with giving insulinan dstarting lantus -patient still has hyperglycemia 400-500 range-might need insuling drip [place]: continue IV fluid normal saline 125 mL/hour Monitor renal function electrolyte closely. Bladder scan seems fine on urinary retention Nephrology evaluation Above was discussed with the Urology/IR in detail length. In addition above discussed with ICU in detail length also-considering multifactorial issues above, patient will benefit from ICU level of care. Patient being transferred to ICU. Quality Stroke Does the patient have a stroke diagnosis?: No Reason for No Anti-thrombotic by Day Two: Contraindicated VTE Prior VTE?: No VTE Risk Level:: Medical - moderate - high VTE Device Contraindication: N/A - Device Ordered VTE Drug Contraindication: N/A - Med Ordered
--- NOTE | 2025-01-24 12:15 | PC.NURSE ---
Med Tele and Bed management notified of need to transfer patient. Bed pending.
--- NOTE | 2025-01-24 12:18 | PC.NURSE ---
Lab called to come draw STAT.
[2025-01-24 12:39] LABS: Reflex Lactate? Lactic Acid Added
[2025-01-24 12:55] LABS: Hematocrit 34.3 % (42.0-52.0); Hemoglobin 11.6 g/dl (14.0-18.0)
[2025-01-24 13:18] LABS: Anion Gap 14 (12-20); Blood Urea Nitrogen 26 mg/dL (9-16); Calcium 9.1 mg/dL (8.4-10.2); Carbon Dioxide 23 mmol/L (22-29); Chloride 98 mmol/L (96-108); Creatinine Clr Calc Pharmacy 63.4; Estimated Glomerular Filt Rate 42; Potassium 4.6 mmol/L (3.3-5.1); Sodium 130 mmol/L (135-145)
[2025-01-24 13:19] LABS: ~Lactic Acid-LAB USE ONLY 3.6 mmol/L (0.5-2.0)
--- NOTE | 2025-01-24 13:27 | P.CNID_ITS ---
History of Present Illness Data of Consult Service Date: 01/24/25 Requesting physician: Glo Buckley Primary Care Provider: BRUCE Sams HPI Reason for consult: renal subcapsular hematoma,infiltrate He presents post renal biopsy. He has some abdominal discomfort and has left renal subcapsular hematoma. He also has slight left base haziness lung.He is not on oxygen Review of Systems 2 Review of Systems: Yes all other systems are reviewed and are negative [facility] Past Medical History Medical History Numbness Seizures Back pain Bronchitis Hyperlipidemia Diabetes type 2, uncontrolled Diabetic neuropathy associated with type 2 diabetes mellitus Hypertension Vitamin D deficiency Family History Family History Father Lung cancer Mother Pacemaker Maternal Grandmother Diabetes Brother CAD (coronary artery disease) Sister Hypertension Sister Myocardial infarction Sister Hearing problem Surgical History Surgical History History of tonsillectomy Social History Social History Housing: Apartment Are you a primary managed care nurse to a significant other at home: No Do you presently have visiting nurse or other home services: No Alcohol intake: never Patient Tobacco Use Status: Never used Tobacco Tobacco use type: Cigarette e-Cigarette/Vaping Use: Never Used Second Hand Smoke Exposure: No Use of substances other than those prescribed or required for medical reasons: No Have you been hit, kicked, punched, or otherwise hurt by someone within the past year? If so, by whom?: No Are you DNR?: No Advance Directives: No Advance Directives Information Provided: Yes Advance Directives on File: No Poor oral hygiene: No service: No Current occupational status: unemployed and disabled Cognitive needs: No Hearing needs: No Vision needs: No Travel History Ebola Risk: Travel/Contact With Anyone From Affected Area/s: No Has Patient Experienced Ebola Symptoms: No Meds Allergies Allergy/AdvReac Type Severity Reaction Status Date / Time metformin Allergy Unknown Unknown Verified 12/20/24 10:54 Active Medications: Current Medications Clotrimazole (Clotrimazole 1 % Cream 15 Gm Tube) 1 appl TOPICAL BID [facility] Last Admin: 01/24/25 08:31 Dose: Not Given Dextrose (Dextrose 50 % 25 Gm/50 Ml Syringe) 25 gm IVPUSH Q15M PRN; Protocol PRN Reason: per Hypoglycemia Standing Ord. Docusate Sodium (Docusate Sodium 100 Mg Capsule) 100 mg PO BID [facility] Last Admin: 01/24/25 07:44 Dose: 100 mg Gabapentin (Gabapentin 100 Mg Capsule) 100 mg PO BEDTIME [facility] Last Admin: 01/23/25 21:43 Dose: 100 mg Glucose (Glucose Gel 15 Gm Gel..Gram.) 15 gm PO Q15M PRN; Protocol PRN Reason: per Hypoglycemia Standing Ord. Hydralazine HCl (Hydralazine Hcl 20 Mg/Ml Vial) 10 mg IVPUSH Q6H PRN; Protocol PRN Reason: SBP > 160 Doxycycline Hyclate 100 mg/ (Sodium Chloride) 250 mls @ 166.67 mls/hr IV Q12H [facility] Last Infusion: 01/24/25 12:08 Dose: Infused Sodium Chloride (Ns) 1,000 mls @ 125 mls/hr IVCONT .Q8H [facility] Last Admin: 01/24/25 11:58 Dose: 125 mls/hr Piperacillin Sod/Tazobactam (Sod 4.5 gm/ Sodium Chloride) 100 mls @ 200 mls/hr IV Q6H [facility] Last Infusion: 01/24/25 13:18 Dose: Infused Insulin Glargine (Insulin Glargine,Hum.Rec.Anlog 100 Unit/Ml 10 Ml Vial) 10 unit SUBCUT DAILY [facility] Last Admin: 01/24/25 08:33 Dose: 10 unit Insulin Human Lispro (Insulin Lispro 100 Unit/Ml 3 Ml Vial) 0 unit SUBCUT QIDACHS [facility]; Protocol Last Admin: 01/24/25 11:56 Dose: 14 unit Levalbuterol HCl (Levalbuterol Hcl 1.25 Mg/3 Ml Vial.Neb) 1.25 mg INHALE Q4H [facility] Last Admin: 01/24/25 11:46 Dose: 1.25 mg Naloxone HCl (Naloxone Hcl 0.4 Mg/Ml Vial) 0.04 mg IVPUSH Q5M PRN PRN Reason: Excessive sedation or RR < 8 Ondansetron HCl (Ondansetron Hcl 4 Mg/2 Ml Vial) 4 mg IVPUSH Q4H PRN PRN Reason: Nausea and Vomiting Last Admin: 01/23/25 21:55 Dose: 4 mg Oxycodone HCl (Oxycodone Hcl Immed Release 5 Mg Tablet) 5 mg PO Q6H PRN PRN Reason: Pain, Severe (Pain Scale 7-10) Last Admin: 01/24/25 08:33 Dose: 5 mg Polyethylene Glycol (Polyethylene Glycol 3350 17 Gm Powd.Pack) 17 gm PO DAILY [facility] Last Admin: 01/24/25 07:44 Dose: 17 gm Senna (Sennosides 8.6 Mg Tablet) 17.2 mg PO BEDTIME PRN PRN Reason: Constipation Last Admin: 01/24/25 00:35 Dose: 17.2 mg Vitamin D (Cholecalciferol (Vitamin D3) 25 Mcg Tablet) 50 mcg PO DAILY [facility] Last Admin: 01/24/25 07:44 Dose: 50 mcg Home Medications ?Medication ?Instructions ?Recorded ?Confirmed ?Last Taken ?Type atorvastatin 40 mg tablet 40 mg PO BEDTIME 01/17/2501/22/25 History pioglitazone 45 mg tablet 45 mg PO BEDTIME 01/17/2501/22/25 History empagliflozin 25 mg tablet 25 mg PO DAILY 01/23/2501/18/25 History (Jardiance) Physical Exam 2 Vital Signs: Vital Signs: Last Vital Signs Temp 98.2 F 01/24/25 11:41 Pulse 81 01/24/25 11:46 Resp 16 01/24/25 11:46 BP 126/76 01/24/25 11:41 Pulse Ox 95 01/24/25 11:41 O2 Del Method Room Air 01/24/25 11:41 BMI result Body Mass Index 31.9 HEENT: Other: minor throat erythema left Results Labs 01/24/25 12:30 01/24/25 12:30 Labs: Short CBC 01/23/25 01/24/25 01/24/25 Range/Units 14:04 06:00 12:30 WBC 7.4 17.9 H (4.8-10.8) X10*3/uL Hgb 16.2 12.1 L D 11.6 L (14.0-18.0) g/dl Hct 46.2 35.4 L D 34.3 L (42.0-52.0) % Plt Count 215 251 (160-400) X10*3/uL BMP 01/23/25 01/24/25 01/24/25 14:04 06:00 12:30 Sodium 138 132 L 130 L Potassium 4.1 4.4 4.6 Chloride 102 98 98 Carbon Dioxide 27 21 L 23 BUN 14 22 H 26 H Creatinine 0.79 1.39 1.71 H Calcium 9.7 9.1 D 9.1 Liver Function 01/24/25 Range/Units 06:00 Total Bilirubin 1.2 H (0.0-1.0) mg/dL AST 25 (5-37) U/L ALT 13 (0-40) U/L Alkaline Phosphatase 59 (39-117) U/L Albumin 3.8 (3.5-5.0) g/dL Urine 01/24/25 Range/Units 10:20 Urine Color Yellow Urine Appearance Clear Urine pH 5.5 (5.0-9.0) Ur Specific [place] >= 1.030 H (1.005-1.025) Urine Protein Negative (Neg-Trace) mg/dL Urine Glucose (UA) >=1000 H (Negative) mg/dL Assessment and Plan (1) Diabetes type 2, uncontrolled: Qualifiers: Glycemic state: with hyperglycemia Qualified Code(s): E11.65 - Type 2 diabetes mellitus with hyperglycemia Status: Acute (2) Abdominal pain: Qualifiers: Abdominal location: unspecified location Qualified Code(s): R10.9 - Unspecified abdominal pain Status: Acute (3) Renal mass of unknown nature: Status: Acute Plan My have some gram negative rods implicated urinary system. There is no definite pneumonia,atelectasis. Would continue piperacillin/tazobactam,stop Doxycycline.likely switch to quinolone outpatient 10 days,follow CT hematoma.
[2025-01-24 14:04] LABS: Glucose, Whole Blood 504 mg/dL (60-115)
[2025-01-24 14:47] LABS: Hematocrit 29.2 % (42.0-52.0); Hemoglobin 10.1 g/dl (14.0-18.0)
[2025-01-24 14:48] LABS: Hematocrit 29.1 % (42.0-52.0); Hemoglobin 10.2 g/dl (14.0-18.0); Mean Corpuscular HGB Conc 35.1 g/dl (31.0-36.0); Mean Corpuscular Hemoglobin 31.8 pg (27.0-33.0); Mean Corpuscular Volume 90.7 fL (80.0-98.0); NRBC Abs Auto 0.000 X10*3/uL (0.0-0.012); NRBC Pct Auto 0.0 /100WBC (0.0-0.2); Platelet Count 196 X10*3/uL (160-400); Red Blood Count 3.21 X10*6/uL (4.60-5.80); White Blood Count 18.2 X10*3/uL (4.8-10.8)
[2025-01-24 14:52] LABS: Reflex Lactate? 2 Y
[2025-01-24 15:11] LABS: Glucose, Whole Blood 399 mg/dL (60-115)
[2025-01-24 15:36] LABS: ~Lactic Acid-LAB USE ONLY 1.0 mmol/L (0.5-2.0)
--- NOTE | 2025-01-24 16:38 | PM.CCN ---
Critical Care Event Note Summary Date of Service: 01/24/25 Code activated: No Narrative: 54-year-old gentleman with underlying obesity, diabetes mellitus, left renal tumor ablation on 01/23/2025 complicated by postprocedure capsular in retroperitoneal hematoma with hemorrhagic shock transferred to intensive care unit on 01/23/2025 for close monitoring, now undergoing IR angiography with possible embolization. Critical Care Time (minutes): 45
--- NOTE | 2025-01-24 17:17 | HO.RADPN ---
RADIOLOGY Narrative Narrative: Brief procedure note: Left renal artery angiogram was performed with attention to site of previously ablated left renal mass. No evidence of active arterial extravasation. Full procedure note to follow with images
[2025-01-24 17:22] LABS: Glucose, Whole Blood 307 mg/dL (60-115)
--- NOTE | 2025-01-24 19:03 | PC.NURSE ---
Pt transported from [facility] to [facility]. This RN assisted as Resource RN. Pt alert, eyes open, answering questions. approx 15 minutes after arrival, 14:10 patient had low automated blood pressure, med television technician checked manual BP and found to be 78/40. Pt drowsy, answers questions eyes closed, follows commands eyes closed. Pt placed in trendelenberg position. MOTORCYCLE SUBASSEMBLY REPAIRER called. 1 L normal saline bolus started per MD. Additional IV access placed. Plan to transfer patient to ICU. BPs improved to 117/63, HR 117. This RN and med tele charge coordinator tranported patient to ICU 254. Pt arrived to ICU approx 15:00 1 unit RBCs started 15:10. Pt received a second 1L normal saline bolus. Patient transported with RN to IR with plan for renal embolization. Pt assessed for active bleeding. Pt returned to ICU approx 17:00. Order to remain supine after right femoral access. Gauze and tegaderm dsg CDI. No urine output since transfer from [facility]. Pt bladder scanned for 441 ml. notified. Patient unable to void supine with urinal s/p embolization. Per MD patient straight cathed for 375ml.
[2025-01-24 19:40] LABS: Hematocrit 31.1 % (42.0-52.0); Hemoglobin 11.0 g/dl (14.0-18.0); Mean Corpuscular HGB Conc 35.4 g/dl (31.0-36.0); Mean Corpuscular Hemoglobin 32.4 pg (27.0-33.0); Mean Corpuscular Volume 91.5 fL (80.0-98.0); NRBC Abs Auto 0.000 X10*3/uL (0.0-0.012); NRBC Pct Auto 0.0 /100WBC (0.0-0.2); Platelet Count 173 X10*3/uL (160-400); Red Blood Count 3.40 X10*6/uL (4.60-5.80); White Blood Count 19.8 X10*3/uL (4.8-10.8)
[2025-01-24 19:53] LABS: Anion Gap 15 (12-20); Blood Urea Nitrogen 28 mg/dL (9-16); Calcium 8.5 mg/dL (8.4-10.2); Carbon Dioxide 18 mmol/L (22-29); Chloride 104 mmol/L (96-108); Creatinine Clr Calc Pharmacy 112.6; Estimated Glomerular Filt Rate 44; Potassium 4.4 mmol/L (3.3-5.1); Sodium 133 mmol/L (135-145)
[2025-01-24 21:17] LABS: Glucose, Whole Blood 265 mg/dL (60-115)
[2025-01-24] MEDS: Insulin Regular/NS 100 UNIT/100 ML PLAST..BAG IVCONT (21:19)
[2025-01-24 22:13] LABS: Glucose, Whole Blood 260 mg/dL (60-115)
[2025-01-24 23:17] LABS: Glucose, Whole Blood 242 mg/dL (60-115)
[2025-01-25] VITALS (26 sets, daily range): BP systolic 94–148; BP diastolic 51–72; PULSE 112–132; RESP 19–38; TEMP 36.3–37.4; O2SAT 90–94; BMI 37.3
--- NOTE | 2025-01-25 | ECG_ITS ---
Test Reason : tachycardia Blood Pressure : */* mmHG Vent. Rate : 127 BPM Atrial Rate : 127 BPM P-R Int : 150 ms QRS Dur : 88 ms QT Int : 308 ms P-R-T Axes : 31 22 43 degrees QTcB Int : 447 ms Sinus tachycardia Nonspecific T wave abnormality Abnormal ECG When compared with ECG of 24-Jan-2025 14:11, Nonspecific ST and T wave abnormality present Referred By: Desiree Marshall Electronically Signed By: TA BENOIT
[2025-01-25 00:18] LABS: Glucose, Whole Blood 211 mg/dL (60-115)
[2025-01-25 01:23] LABS: Glucose, Whole Blood 166 mg/dL (60-115)
[2025-01-25 02:05] LABS: Glucose, Whole Blood 135 mg/dL (60-115)
[2025-01-25 03:08] LABS: Glucose, Whole Blood 149 mg/dL (60-115)
[2025-01-25 03:59] LABS: Glucose, Whole Blood 169 mg/dL (60-115)
[2025-01-25 05:06] LABS: Glucose, Whole Blood 127 mg/dL (60-115)
[2025-01-25 05:33] LABS: VBG HCO3 23 mmol/L (22-26); VBG O2 % Saturation 51.0 %
[2025-01-25 05:36] LABS: Hematocrit 30.9 % (42.0-52.0); Hemoglobin 10.7 g/dl (14.0-18.0); Imm Gran Abs Auto 0.09 X10*3/uL (0.00-0.03); Imm Gran Pct Auto 0.4 % (0.0-0.4); Lymphocytes Absolute Auto 1.6 X10*3/uL (1.2-4.9); MANUAL DIFF FLAG SCAN; Mean Corpuscular HGB Conc 34.6 g/dl (31.0-36.0); Mean Corpuscular Hemoglobin 31.6 pg (27.0-33.0); Mean Corpuscular Volume 91.2 fL (80.0-98.0); NRBC Abs Auto 0.000 X10*3/uL (0.0-0.012); NRBC Pct Auto 0.0 /100WBC (0.0-0.2); Platelet Count 191 X10*3/uL (160-400); Red Blood Count 3.39 X10*6/uL (4.60-5.80); SCAN SMEAR FLAG 1; White Blood Count 20.9 X10*3/uL (4.8-10.8)
[2025-01-25 05:39] LABS: Venous Blood Gas Refer to POC result
[2025-01-25 05:59] LABS: Albumin Level 3.7 g/dL (3.5-5.0); Anion Gap 14 (12-20); Blood Urea Nitrogen 32 mg/dL (9-16); Calcium 8.8 mg/dL (8.4-10.2); Carbon Dioxide 22 mmol/L (22-29); Chloride 106 mmol/L (96-108); Creatinine Clr Calc Pharmacy 107.4; Estimated Glomerular Filt Rate 41; Magnesium 2.1 mg/dL (1.6-2.6); Potassium 4.0 mmol/L (3.3-5.1); Sodium 138 mmol/L (135-145)
[2025-01-25 06:11] LABS: Glucose, Whole Blood 117 mg/dL (60-115)
[2025-01-25] MEDS: oxyCODONE HCl Immed Release 5 MG TABLET PO ×2 (06:18→12:20)
[2025-01-25 07:15] LABS: Glucose, Whole Blood 126 mg/dL (60-115)
[2025-01-25 08:17] LABS: Glucose, Whole Blood 150 mg/dL (60-115)
[2025-01-25 09:19] LABS: Glucose, Whole Blood 152 mg/dL (60-115)
[2025-01-25 09:19] LABS: Glucose, Whole Blood 156 mg/dL (60-115)
[2025-01-25 10:07] LABS: Glucose, Whole Blood 151 mg/dL (60-115)
--- NOTE | 2025-01-25 10:51 | PM.CCPN ---
Subjective Subjective Date of Service: 01/25/25 Interval History: 54-year-old gentleman with underlying obesity, diabetes mellitus, left renal tumor ablation on 01/23/2025 complicated by postprocedure capsular in retroperitoneal hematoma with hemorrhagic shock transferred to intensive care unit on 01/23/2025 for close monitoring. Patient underwent angiogram of his renal arteries with no active extravasation noted. His shock resolved and hemoglobin stabilized overnight. No events overnight. Critical Care Time (minutes): 0 Physical Exam Vital Signs: Vital Signs: Last Vital Signs Temp 97.4 F 01/25/25 08:00 Pulse 119 H 01/25/25 10:00 Resp 21 H 01/25/25 10:00 BP 113/66 01/25/25 10:00 Pulse Ox 93 01/25/25 10:00 O2 Del Method Nasal Cannula 01/25/25 10:00 O2 Flow Rate 2 01/25/25 10:00 BMI result Body Mass Index 37.3 Const: General: no acute distress, alert and awake Eyes: Sclerae: sclerae normal EOM: EOMs intact bilaterally Neck: Neck: Yes no lymphadenopathy, Yes trachea midline and Yes supple Resp: Effort & Inspection: normal respiratory effort and no respiratory distress Auscultation: clear to auscultation bilaterally Cardio: Rate: tachycardic Rhythm: regular rhythm Heart sounds: no gallops, no murmurs and no rubs GI: Palpation (GI): Soft to palpation and Other GI palpation findings present ( Nontender) Auscultation: normal bowel sounds Extrem: General: Yes no pedal edema, No clubbing and No cyanosis Objective Data Labs 01/25/25 05:23 01/25/25 05:23 Labs: Laboratory Results - last 24 hr 01/23/25 01/24/25 01/24/25 14:04 10:20 10:34 WBC RBC Hgb Hct MCV MCH MCHC RDW Plt Count MPV Immature Gran % (Auto) Neut % (Auto) Lymph % (Auto) [place] % (Auto) Eos % (Auto) Baso % (Auto) Lymph # (Auto) [place] # (Auto) Eos # (Auto) Baso # (Auto) Abs Immat Gran (auto) Absolute Neuts (auto) Absolute Nucleated RBC Nucleated RBC % (auto) Smear Tech's Comments Hold Purple Top VBG pH VBG pCO2 VBG pO2 VBG HCO3 VBG O2 Saturation VBG Base Excess Sodium Potassium Chloride Carbon Dioxide Anion Gap BUN Creatinine Estim Creat Clear Calc Estimated GFR POC Glucose Random Glucose Lactic Acid 4.7 H* Lactic Acid F/U @ 2Hr Lactic Acid F/U @ 4Hr Calcium Phosphorus Magnesium Albumin Urine RBC 0-2 Urine WBC 0-5 Ur Squamous Epith Cells 0-2 Urine Bacteria None Seen Hyaline Casts 0-2 Blood Type O Positive Antibody Screen NEGATIVE Crossmatch See Detail 01/24/25 01/24/25 01/24/25 11:29 12:30 12:47 WBC RBC Hgb 11.6 L Hct 34.3 L MCV MCH MCHC RDW Plt Count MPV Immature Gran % (Auto) Neut % (Auto) Lymph % (Auto) [place] % (Auto) Eos % (Auto) Baso % (Auto) Lymph # (Auto) [place] # (Auto) Eos # (Auto) Baso # (Auto) Abs Immat Gran (auto) Absolute Neuts (auto) Absolute Nucleated RBC Nucleated RBC % (auto) Smear Tech's Comments Hold Purple Top VBG pH VBG pCO2 VBG pO2 VBG HCO3 VBG O2 Saturation VBG Base Excess Sodium 130 L Potassium 4.6 Chloride 98 Carbon Dioxide 23 Anion Gap 14 BUN 26 H Creatinine 1.71 H Estim Creat Clear Calc 63.4 Estimated GFR 42 POC Glucose 440 H* Random Glucose 512 H* Lactic Acid Lactic Acid F/U @ 2Hr 3.6 H* Lactic Acid F/U @ 4Hr Calcium 9.1 Phosphorus Magnesium Albumin Urine RBC Urine WBC Ur Squamous Epith Cells Urine Bacteria Hyaline Casts Blood Type Antibody Screen Crossmatch 01/24/25 01/24/25 01/24/25 13:55 14:35 14:35 WBC 18.2 H RBC 3.21 L Hgb 10.2 L 10.1 L Hct 29.1 L MCV MCH MCHC RDW Plt Count MPV Immature Gran % (Auto) Neut % (Auto) Lymph % (Auto) [place] % (Auto) Eos % (Auto) Baso % (Auto) Lymph # (Auto) [place] # (Auto) Eos # (Auto) Baso # (Auto) Abs Immat Gran (auto) Absolute Neuts (auto) Absolute Nucleated RBC Nucleated RBC % (auto) Smear Tech's Comments Hold Purple Top VBG pH VBG pCO2 VBG pO2 VBG HCO3 VBG O2 Saturation VBG Base Excess Sodium Potassium Chloride Carbon Dioxide Anion Gap BUN Creatinine Estim Creat Clear Calc Estimated GFR POC Glucose 504 H* Random Glucose Lactic Acid Lactic Acid F/U @ 2Hr Lactic Acid F/U @ 4Hr Calcium Phosphorus Magnesium Albumin Urine RBC Urine WBC Ur Squamous Epith Cells Urine Bacteria Hyaline Casts Blood Type Antibody Screen Crossmatch 01/24/25 01/24/25 01/24/25 14:35 15:08 15:17 WBC RBC Hgb Hct 29.2 L MCV 90.7 MCH 31.8 MCHC 35.1 RDW 12.8 Plt Count 196 MPV 10.7 Immature Gran % (Auto) Neut % (Auto) Lymph % (Auto) [place] % (Auto) Eos % (Auto) Baso % (Auto) Lymph # (Auto) [place] # (Auto) Eos # (Auto) Baso # (Auto) Abs Immat Gran (auto) Absolute Neuts (auto) Absolute Nucleated RBC 0.000 Nucleated RBC % (auto) 0.0 Smear Tech's Comments Hold Purple Top VBG pH VBG pCO2 VBG pO2 VBG HCO3 VBG O2 Saturation VBG Base Excess Sodium Potassium Chloride Carbon Dioxide Anion Gap BUN Creatinine Estim Creat Clear Calc Estimated GFR POC Glucose 399 H* Random Glucose Lactic Acid Lactic Acid F/U @ 2Hr Lactic Acid F/U @ 4Hr 1.0 Calcium Phosphorus Magnesium Albumin Urine RBC Urine WBC Ur Squamous Epith Cells Urine Bacteria Hyaline Casts Blood Type Antibody Screen Crossmatch 01/24/25 01/24/25 01/24/25 17:19 19:16 21:09 WBC 19.8 H RBC 3.40 L Hgb 11.0 L Hct 31.1 L MCV 91.5 MCH 32.4 MCHC 35.4 RDW 12.8 Plt Count 173 MPV 10.7 Immature Gran % (Auto) Neut % (Auto) Lymph % (Auto) [place] % (Auto) Eos % (Auto) Baso % (Auto) Lymph # (Auto) [place] # (Auto) Eos # (Auto) Baso # (Auto) Abs Immat Gran (auto) Absolute Neuts (auto) Absolute Nucleated RBC 0.000 Nucleated RBC % (auto) 0.0 Smear Tech's Comments Hold Purple Top SEE NOTE VBG pH VBG pCO2 VBG pO2 VBG HCO3 VBG O2 Saturation VBG Base Excess Sodium 133 L Potassium 4.4 Chloride 104 Carbon Dioxide 18 L Anion Gap 15 BUN 28 H Creatinine 1.64 H Estim Creat Clear Calc 112.6 Estimated GFR 44 POC Glucose 307 H 265 H Random Glucose 346 H Lactic Acid Lactic Acid F/U @ 2Hr Lactic Acid F/U @ 4Hr Calcium 8.5 D Phosphorus Magnesium Albumin Urine RBC Urine WBC Ur Squamous Epith Cells Urine Bacteria Hyaline Casts Blood Type Antibody Screen Crossmatch 01/24/25 01/24/25 01/24/25 22:10 23:14 23:57 WBC RBC Hgb Hct MCV MCH MCHC RDW Plt Count MPV Immature Gran % (Auto) Neut % (Auto) Lymph % (Auto) [place] % (Auto) Eos % (Auto) Baso % (Auto) Lymph # (Auto) [place] # (Auto) Eos # (Auto) Baso # (Auto) Abs Immat Gran (auto) Absolute Neuts (auto) Absolute Nucleated RBC Nucleated RBC % (auto) Smear Tech's Comments Hold Purple Top VBG pH VBG pCO2 VBG pO2 VBG HCO3 VBG O2 Saturation VBG Base Excess Sodium Potassium Chloride Carbon Dioxide Anion Gap BUN Creatinine Estim Creat Clear Calc Estimated GFR POC Glucose 260 H 242 H 211 H Random Glucose Lactic Acid Lactic Acid F/U @ 2Hr Lactic Acid F/U @ 4Hr Calcium Phosphorus Magnesium Albumin Urine RBC Urine WBC Ur Squamous Epith Cells Urine Bacteria Hyaline Casts Blood Type Antibody Screen Crossmatch 01/25/25 01/25/25 01/25/25 01:12 01:57 03:02 WBC RBC Hgb Hct MCV MCH MCHC RDW Plt Count MPV Immature Gran % (Auto) Neut % (Auto) Lymph % (Auto) [place] % (Auto) Eos % (Auto) Baso % (Auto) Lymph # (Auto) [place] # (Auto) Eos # (Auto) Baso # (Auto) Abs Immat Gran (auto) Absolute Neuts (auto) Absolute Nucleated RBC Nucleated RBC % (auto) Smear Tech's Comments Hold Purple Top VBG pH VBG pCO2 VBG pO2 VBG HCO3 VBG O2 Saturation VBG Base Excess Sodium Potassium Chloride Carbon Dioxide Anion Gap BUN Creatinine Estim Creat Clear Calc Estimated GFR POC Glucose 166 H 135 H 149 H Random Glucose Lactic Acid Lactic Acid F/U @ 2Hr Lactic Acid F/U @ 4Hr Calcium Phosphorus Magnesium Albumin Urine RBC Urine WBC Ur Squamous Epith Cells Urine Bacteria Hyaline Casts Blood Type Antibody Screen Crossmatch 01/25/25 01/25/2501/25/25 03:54 05:02 05:23 WBC 20.9 H RBC 3.39 L Hgb 10.7 L Hct 30.9 L MCV 91.2 MCH 31.6 MCHC 34.6 RDW 13.1 Plt Count 191 MPV 10.2 Immature Gran % (Auto) 0.4 Neut % (Auto) 83.0 H Lymph % (Auto) 7.5 L [place] % (Auto) 9.0 Eos % (Auto) 0.0 Baso % (Auto) 0.1 Lymph # (Auto) 1.6 [place] # (Auto) 1.9 H Eos # (Auto) 0.0 Baso # (Auto) 0.0 Abs Immat Gran (auto) 0.09 H Absolute Neuts (auto) 17.3 H Absolute Nucleated RBC 0.000 Nucleated RBC % (auto) 0.0 Smear Tech's Comments VERIFIED Hold Purple Top VBG pH VBG pCO2 VBG pO2 VBG HCO3 VBG O2 Saturation VBG Base Excess Sodium 138 Potassium 4.0 Chloride 106 Carbon Dioxide 22 Anion Gap 14 BUN 32 H Creatinine 1.72 H Estim Creat Clear Calc 107.4 Estimated GFR 41 POC Glucose 169 H 127 H Random Glucose 130 H Lactic Acid Lactic Acid F/U @ 2Hr Lactic Acid F/U @ 4Hr Calcium 8.8 Phosphorus 3.6 Magnesium 2.1 Albumin 3.7 Urine RBC Urine WBC Ur Squamous Epith Cells Urine Bacteria Hyaline Casts Blood Type Antibody Screen Crossmatch 01/25/25 01/25/25 01/25/25 05:29 06:05 07:06 WBC RBC Hgb Hct MCV MCH MCHC RDW Plt Count MPV Immature Gran % (Auto) Neut % (Auto) Lymph % (Auto) [place] % (Auto) Eos % (Auto) Baso % (Auto) Lymph # (Auto) [place] # (Auto) Eos # (Auto) Baso # (Auto) Abs Immat Gran (auto) Absolute Neuts (auto) Absolute Nucleated RBC Nucleated RBC % (auto) Smear Tech's Comments Hold Purple Top VBG pH 7.48 H VBG pCO2 31 VBG pO2 33 VBG HCO3 23 VBG O2 Saturation 51.0 VBG Base Excess 1.0 Sodium Potassium Chloride Carbon Dioxide Anion Gap BUN Creatinine Estim Creat Clear Calc Estimated GFR POC Glucose 117 H 126 H Random Glucose Lactic Acid Lactic Acid F/U @ 2Hr Lactic Acid F/U @ 4Hr Calcium Phosphorus Magnesium Albumin Urine RBC Urine WBC Ur Squamous Epith Cells Urine Bacteria Hyaline Casts Blood Type Antibody Screen Crossmatch 01/25/25 01/25/25 01/25/25 08:13 08:47 09:16 WBC RBC Hgb Hct MCV MCH MCHC RDW Plt Count MPV Immature Gran % (Auto) Neut % (Auto) Lymph % (Auto) [place] % (Auto) Eos % (Auto) Baso % (Auto) Lymph # (Auto) [place] # (Auto) Eos # (Auto) Baso # (Auto) Abs Immat Gran (auto) Absolute Neuts (auto) Absolute Nucleated RBC Nucleated RBC % (auto) Smear Tech's Comments Hold Purple Top VBG pH VBG pCO2 VBG pO2 VBG HCO3 VBG O2 Saturation VBG Base Excess Sodium Potassium Chloride Carbon Dioxide Anion Gap BUN Creatinine Estim Creat Clear Calc Estimated GFR POC Glucose 150 H 156 H 152 H Random Glucose Lactic Acid Lactic Acid F/U @ 2Hr Lactic Acid F/U @ 4Hr Calcium Phosphorus Magnesium Albumin Urine RBC Urine WBC Ur Squamous Epith Cells Urine Bacteria Hyaline Casts Blood Type Antibody Screen Crossmatch 01/25/25 10:03 WBC RBC Hgb Hct MCV MCH MCHC RDW Plt Count MPV Immature Gran % (Auto) Neut % (Auto) Lymph % (Auto) [place] % (Auto) Eos % (Auto) Baso % (Auto) Lymph # (Auto) [place] # (Auto) Eos # (Auto) Baso # (Auto) Abs Immat Gran (auto) Absolute Neuts (auto) Absolute Nucleated RBC Nucleated RBC % (auto) Smear Tech's Comments Hold Purple Top VBG pH VBG pCO2 VBG pO2 VBG HCO3 VBG O2 Saturation VBG Base Excess Sodium Potassium Chloride Carbon Dioxide Anion Gap BUN Creatinine Estim Creat Clear Calc Estimated GFR POC Glucose 151 H Random Glucose Lactic Acid Lactic Acid F/U @ 2Hr Lactic Acid F/U @ 4Hr Calcium Phosphorus Magnesium Albumin Urine RBC Urine WBC Ur Squamous Epith Cells Urine Bacteria Hyaline Casts Blood Type Antibody Screen Crossmatch Progress Note: A&P Assessment and plan (1) Diabetes type 2, uncontrolled: Status: Acute (2) Renal hemorrhage, left: Status: Acute (3) Retroperitoneal hemorrhage: Status: Acute (4) Renal mass: Status: Acute Plan Assessment: 54-year-old gentleman admitted for close monitoring after left renal tumor ablation complicated by subcapsular and retroperitoneal hemorrhage and hyperglycemia. Plan: Neuro: No acute issues. Cardiac: No acute issues. Pulmonary: No acute issues. Renal: Renal subcapsular/retroperitoneal hemorrhage just postoperative complication of renal tumor ablation. Underwent official radiology service care appreciated. Repeat renal angiogram with no active bleeding. Endo: Uncontrolled hyperglycemia initially requiring insulin drip, now titrated off. GI: No acute issues. ID: No acute issues Heme/Onc: No acute issues. Psych: No acute issues. Miscellaneous: No acute issues. Prophylaxis: Pneumatic compression Diet: Diabetic Quality Stroke Does the patient have a stroke diagnosis?: No Reason for No Anti-thrombotic by Day Two: Contraindicated VTE Prior VTE?: No VTE Risk Level:: Medical - moderate - high VTE Device Contraindication: N/A - Device Ordered VTE Drug Contraindication: N/A - Med Ordered
[2025-01-25 11:10] LABS: Glucose, Whole Blood 143 mg/dL (60-115)
[2025-01-25] MEDS: Insulin Glargine,Hum.rec.anlog 100 UNIT/ML 10 ML VIAL 30 UNIT SUBCUT ×2 (11:21→21:21)
--- NOTE | 2025-01-25 12:04 | PM.UROPN ---
Subjective Subjective Date of Service: 01/25/25 Interval history: RFA of renal lesion Complicated by postprocedure bleed Underwent angiogram which showed no active bleeding Admitted to ICU for supportive care secondary to hematocrit shift Recommendation for blood transfusion with IV fluid support in order to create natural tamponade Current lab work stable Remains in ICU for metabolic support and pain management Physical Exam Vital Signs: Vital Signs: Last Vital Signs Temp 97.4 F 01/25/25 08:00 Pulse 123 H 01/25/25 11:20 Resp 20 01/25/25 11:20 BP 123/67 01/25/25 11:00 Pulse Ox 92 01/25/25 11:00 O2 Del Method Nasal Cannula 01/25/25 11:00 O2 Flow Rate 2 01/25/25 11:00 BMI result Body Mass Index 37.3 Const: General: cooperative, healthy appearing, comfortable and no acute distress Orientation/consciousness: patient oriented x3 HEENT: Face and sinus: Yes normal facial exam Mouth: moist mucous membranes Neck: Neck: Yes normal visual inspection, Yes full ROM and Yes trachea midline Chest: Chest palpation & inspection: normal inspection of the chest Resp: Effort & Inspection: normal respiratory effort, able to speak in complete sentences and no respiratory distress GI: Inspection: Yes normal to inspection Back/Spine/Pelvis: Cervical Spine: normal cervical lordosis Thoracic/Lumbar Spine: thoracic and lumbar spine normal to inspection Skin: General skin exam: no rashes or lesions noted Neuro: General: patient oriented x3, tone normal and moves all extremities Extrem: General: Yes normal to inspection and Yes capillary refill normal Urology Results Labs 01/25/25 05:23 01/25/25 05:23 Labs: Laboratory Results - last 24 hr 01/23/25 01/24/25 01/24/25 14:04 12:30 12:47 WBC RBC Hgb 11.6 L Hct 34.3 L MCV MCH MCHC RDW Plt Count MPV Immature Gran % (Auto) Neut % (Auto) Lymph % (Auto) [place] % (Auto) Eos % (Auto) Baso % (Auto) Lymph # (Auto) [place] # (Auto) Eos # (Auto) Baso # (Auto) Abs Immat Gran (auto) Absolute Neuts (auto) Absolute Nucleated RBC Nucleated RBC % (auto) Smear Tech's Comments Hold Purple Top VBG pH VBG pCO2 VBG pO2 VBG HCO3 VBG O2 Saturation VBG Base Excess Sodium 130 L Potassium 4.6 Chloride 98 Carbon Dioxide 23 Anion Gap 14 BUN 26 H Creatinine 1.71 H Estim Creat Clear Calc 63.4 Estimated GFR 42 POC Glucose Random Glucose 512 H* Lactic Acid F/U @ 2Hr 3.6 H* Lactic Acid F/U @ 4Hr Calcium 9.1 Phosphorus Magnesium Albumin Blood Type O Positive Antibody Screen NEGATIVE Crossmatch See Detail 01/24/25 01/24/25 01/24/25 13:55 14:35 14:35 WBC 18.2 H RBC 3.21 L Hgb 10.2 L 10.1 L Hct 29.1 L MCV MCH MCHC RDW Plt Count MPV Immature Gran % (Auto) Neut % (Auto) Lymph % (Auto) [place] % (Auto) Eos % (Auto) Baso % (Auto) Lymph # (Auto) [place] # (Auto) Eos # (Auto) Baso # (Auto) Abs Immat Gran (auto) Absolute Neuts (auto) Absolute Nucleated RBC Nucleated RBC % (auto) Smear Tech's Comments Hold Purple Top VBG pH VBG pCO2 VBG pO2 VBG HCO3 VBG O2 Saturation VBG Base Excess Sodium Potassium Chloride Carbon Dioxide Anion Gap BUN Creatinine Estim Creat Clear Calc Estimated GFR POC Glucose 504 H* Random Glucose Lactic Acid F/U @ 2Hr Lactic Acid F/U @ 4Hr Calcium Phosphorus Magnesium Albumin Blood Type Antibody Screen Crossmatch 01/24/25 01/24/25 01/24/25 14:35 15:08 15:17 WBC RBC Hgb Hct 29.2 L MCV 90.7 MCH 31.8 MCHC 35.1 RDW 12.8 Plt Count 196 MPV 10.7 Immature Gran % (Auto) Neut % (Auto) Lymph % (Auto) [place] % (Auto) Eos % (Auto) Baso % (Auto) Lymph # (Auto) [place] # (Auto) Eos # (Auto) Baso # (Auto) Abs Immat Gran (auto) Absolute Neuts (auto) Absolute Nucleated RBC 0.000 Nucleated RBC % (auto) 0.0 Smear Tech's Comments Hold Purple Top VBG pH VBG pCO2 VBG pO2 VBG HCO3 VBG O2 Saturation VBG Base Excess Sodium Potassium Chloride Carbon Dioxide Anion Gap BUN Creatinine Estim Creat Clear Calc Estimated GFR POC Glucose 399 H* Random Glucose Lactic Acid F/U @ 2Hr Lactic Acid F/U @ 4Hr 1.0 Calcium Phosphorus Magnesium Albumin Blood Type Antibody Screen Crossmatch 01/24/25 01/24/25 01/24/25 17:19 19:16 21:09 WBC 19.8 H RBC 3.40 L Hgb 11.0 L Hct 31.1 L MCV 91.5 MCH 32.4 MCHC 35.4 RDW 12.8 Plt Count 173 MPV 10.7 Immature Gran % (Auto) Neut % (Auto) Lymph % (Auto) [place] % (Auto) Eos % (Auto) Baso % (Auto) Lymph # (Auto) [place] # (Auto) Eos # (Auto) Baso # (Auto) Abs Immat Gran (auto) Absolute Neuts (auto) Absolute Nucleated RBC 0.000 Nucleated RBC % (auto) 0.0 Smear Tech's Comments Hold Purple Top SEE NOTE VBG pH VBG pCO2 VBG pO2 VBG HCO3 VBG O2 Saturation VBG Base Excess Sodium 133 L Potassium 4.4 Chloride 104 Carbon Dioxide 18 L Anion Gap 15 BUN 28 H Creatinine 1.64 H Estim Creat Clear Calc 112.6 Estimated GFR 44 POC Glucose 307 H 265 H Random Glucose 346 H Lactic Acid F/U @ 2Hr Lactic Acid F/U @ 4Hr Calcium 8.5 D Phosphorus Magnesium Albumin Blood Type Antibody Screen Crossmatch 01/24/25 01/24/25 01/24/25 22:10 23:14 23:57 WBC RBC Hgb Hct MCV MCH MCHC RDW Plt Count MPV Immature Gran % (Auto) Neut % (Auto) Lymph % (Auto) [place] % (Auto) Eos % (Auto) Baso % (Auto) Lymph # (Auto) [place] # (Auto) Eos # (Auto) Baso # (Auto) Abs Immat Gran (auto) Absolute Neuts (auto) Absolute Nucleated RBC Nucleated RBC % (auto) Smear Tech's Comments Hold Purple Top VBG pH VBG pCO2 VBG pO2 VBG HCO3 VBG O2 Saturation VBG Base Excess Sodium Potassium Chloride Carbon Dioxide Anion Gap BUN Creatinine Estim Creat Clear Calc Estimated GFR POC Glucose 260 H 242 H 211 H Random Glucose Lactic Acid F/U @ 2Hr Lactic Acid F/U @ 4Hr Calcium Phosphorus Magnesium Albumin Blood Type Antibody Screen Crossmatch 01/25/25 01/25/25 01/25/25 01:12 01:57 03:02 WBC RBC Hgb Hct MCV MCH MCHC RDW Plt Count MPV Immature Gran % (Auto) Neut % (Auto) Lymph % (Auto) [place] % (Auto) Eos % (Auto) Baso % (Auto) Lymph # (Auto) [place] # (Auto) Eos # (Auto) Baso # (Auto) Abs Immat Gran (auto) Absolute Neuts (auto) Absolute Nucleated RBC Nucleated RBC % (auto) Smear Tech's Comments Hold Purple Top VBG pH VBG pCO2 VBG pO2 VBG HCO3 VBG O2 Saturation VBG Base Excess Sodium Potassium Chloride Carbon Dioxide Anion Gap BUN Creatinine Estim Creat Clear Calc Estimated GFR POC Glucose 166 H 135 H 149 H Random Glucose Lactic Acid F/U @ 2Hr Lactic Acid F/U @ 4Hr Calcium Phosphorus Magnesium Albumin Blood Type Antibody Screen Crossmatch 01/25/25 01/25/25 01/25/25 03:54 05:02 05:23 WBC 20.9 H RBC 3.39 L Hgb 10.7 L Hct 30.9 L MCV 91.2 MCH 31.6 MCHC 34.6 RDW 13.1 Plt Count 191 MPV 10.2 Immature Gran % (Auto) 0.4 Neut % (Auto) 83.0 H Lymph % (Auto) 7.5 L [place] % (Auto) 9.0 Eos % (Auto) 0.0 Baso % (Auto) 0.1 Lymph # (Auto) 1.6 [place] # (Auto) 1.9 H Eos # (Auto) 0.0 Baso # (Auto) 0.0 Abs Immat Gran (auto) 0.09 H Absolute Neuts (auto) 17.3 H Absolute Nucleated RBC 0.000 Nucleated RBC % (auto) 0.0 Smear Tech's Comments VERIFIED Hold Purple Top VBG pH VBG pCO2 VBG pO2 VBG HCO3 VBG O2 Saturation VBG Base Excess Sodium 138 Potassium 4.0 Chloride 106 Carbon Dioxide 22 Anion Gap 14 BUN 32 H Creatinine 1.72 H Estim Creat Clear Calc 107.4 Estimated GFR 41 POC Glucose 169 H 127 H Random Glucose 130 H Lactic Acid F/U @ 2Hr Lactic Acid F/U @ 4Hr Calcium 8.8 Phosphorus 3.6 Magnesium 2.1 Albumin 3.7 Blood Type Antibody Screen Crossmatch 01/25/25 01/25/25 01/25/25 05:29 06:05 07:06 WBC RBC Hgb Hct MCV MCH MCHC RDW Plt Count MPV Immature Gran % (Auto) Neut % (Auto) Lymph % (Auto) [place] % (Auto) Eos % (Auto) Baso % (Auto) Lymph # (Auto) [place] # (Auto) Eos # (Auto) Baso # (Auto) Abs Immat Gran (auto) Absolute Neuts (auto) Absolute Nucleated RBC Nucleated RBC % (auto) Smear Tech's Comments Hold Purple Top VBG pH 7.48 H VBG pCO2 31 VBG pO2 33 VBG HCO3 23 VBG O2 Saturation 51.0 VBG Base Excess 1.0 Sodium Potassium Chloride Carbon Dioxide Anion Gap BUN Creatinine Estim Creat Clear Calc Estimated GFR POC Glucose 117 H 126 H Random Glucose Lactic Acid F/U @ 2Hr Lactic Acid F/U @ 4Hr Calcium Phosphorus Magnesium Albumin Blood Type Antibody Screen Crossmatch 01/25/25 01/25/25 01/25/25 08:13 08:47 09:16 WBC RBC Hgb Hct MCV MCH MCHC RDW Plt Count MPV Immature Gran % (Auto) Neut % (Auto) Lymph % (Auto) [place] % (Auto) Eos % (Auto) Baso % (Auto) Lymph # (Auto) [place] # (Auto) Eos # (Auto) Baso # (Auto) Abs Immat Gran (auto) Absolute Neuts (auto) Absolute Nucleated RBC Nucleated RBC % (auto) Smear Tech's Comments Hold Purple Top VBG pH VBG pCO2 VBG pO2 VBG HCO3 VBG O2 Saturation VBG Base Excess Sodium Potassium Chloride Carbon Dioxide Anion Gap BUN Creatinine Estim Creat Clear Calc Estimated GFR POC Glucose 150 H 156 H 152 H Random Glucose Lactic Acid F/U @ 2Hr Lactic Acid F/U @ 4Hr Calcium Phosphorus Magnesium Albumin Blood Type Antibody Screen Crossmatch 01/25/25 01/25/25 10:03 11:02 WBC RBC Hgb Hct MCV MCH MCHC RDW Plt Count MPV Immature Gran % (Auto) Neut % (Auto) Lymph % (Auto) [place] % (Auto) Eos % (Auto) Baso % (Auto) Lymph # (Auto) [place] # (Auto) Eos # (Auto) Baso # (Auto) Abs Immat Gran (auto) Absolute Neuts (auto) Absolute Nucleated RBC Nucleated RBC % (auto) Smear Tech's Comments Hold Purple Top VBG pH VBG pCO2 VBG pO2 VBG HCO3 VBG O2 Saturation VBG Base Excess Sodium Potassium Chloride Carbon Dioxide Anion Gap BUN Creatinine Estim Creat Clear Calc Estimated GFR POC Glucose 151 H 143 H Random Glucose Lactic Acid F/U @ 2Hr Lactic Acid F/U @ 4Hr Calcium Phosphorus Magnesium Albumin Blood Type Antibody Screen Crossmatch Progress Note: A&P Assessment and plan (1) Renal hemorrhage, left: Status: Acute Plan Pain management Time Spent With Patient Time: Total time managing care of this patient today ____ minutes. Progress Note: Quality Stroke Does the patient have a stroke diagnosis?: No Reason for No Anti-thrombotic by Day Two: Contraindicated
[2025-01-25 12:17] LABS: Glucose, Whole Blood 205 mg/dL (60-115)
--- NOTE | 2025-01-25 15:08 | HO.POSTANES ---
Post Anesthesia Evaluation Post Anesthesia Evaluation Date of Service: 01/25/25 Vital Signs: Vital Signs Temp Pulse Resp BP Pulse Ox O2 Del Method O2 Flow Rate 01/25/25 14:00 120 H 20 126/61 90 L Nasal Cannula 2 01/25/25 13:00 121 H 21 H 128/65 90 L Nasal Cannula 2 01/25/25 12:00 98.3 F 122 H 25 H 124/51 L 91 L Nasal Cannula 2 01/25/25 11:20 123 H 20 01/25/25 11:00 121 H 29 H 123/67 92 Nasal Cannula 2 01/25/25 10:00 119 H 21 H 113/66 93 Nasal Cannula 2 01/25/25 09:00 127 H 26 H 128/65 92 Nasal Cannula 2 01/25/25 08:03 116 H 20 01/25/25 08:00 97.4 F 117 H 23 H 119/62 91 L Nasal Cannula 2 01/25/25 07:00 114 H 20 109/54 L 91 L Nasal Cannula 2 01/25/25 06:00 124 H 22 H 130/61 93 Nasal Cannula 2 01/25/25 05:09 115 H 26 H 01/25/25 05:00 116 H 24 H 129/68 94 Nasal Cannula 2 01/25/25 04:00 98.4 F 113 H 19 116/59 L 92 Nasal Cannula 2 Anesthesia: General Endotracheal-GETA Mental Status: Awake Pain Control: Satisfactory Nausea/Vomiting: None Hydration: Adequate Anesthesia-Related Issues: No Anes. Related Issues
--- NOTE | 2025-01-25 15:14 | MHC.CM.PN ---
Pt changed from observation to inpatient, IMM given 01/25.
[2025-01-25 15:59] LABS: Hematocrit 26.7 % (42.0-52.0); Hemoglobin 9.3 g/dl (14.0-18.0); Imm Gran Abs Auto 0.07 X10*3/uL (0.00-0.03); Imm Gran Pct Auto 0.4 % (0.0-0.4); Lymphocytes Absolute Auto 1.6 X10*3/uL (1.2-4.9); Mean Corpuscular HGB Conc 34.8 g/dl (31.0-36.0); Mean Corpuscular Hemoglobin 31.5 pg (27.0-33.0); Mean Corpuscular Volume 90.5 fL (80.0-98.0); NRBC Abs Auto 0.000 X10*3/uL (0.0-0.012); NRBC Pct Auto 0.0 /100WBC (0.0-0.2); Platelet Count 173 X10*3/uL (160-400); Red Blood Count 2.95 X10*6/uL (4.60-5.80); SCAN SMEAR FLAG 1; White Blood Count 18.1 X10*3/uL (4.8-10.8)
[2025-01-25 16:06] LABS: MANUAL DIFF FLAG SCAN
[2025-01-25 16:19] LABS: Glucose, Whole Blood 243 mg/dL (60-115)
--- NOTE | 2025-01-25 17:21 | PC.NURSE ---
Addendum entered by Justyna Mendiola RN 01/25/25 17:22: c/o Abdominal pain... Original Note: Neuro: Alert and oriented x4 but vague at times. Resp: on 2L for comfort, O2 drops to high 80?s on room air, non productive cough noted Cardiac: Sinus tachy? GI/: Insulin gtt titrated off this afternoon after starting Lantus sub Q, See MAR for full details, tolerating well Lispro sliding scale with meals, ? Abdominal pain thats alleviated by repositioning and Oxy administration. Integumentary/Musculoskeletal: Left flank and right groin DSD from procedures, C/D/I?
--- NOTE | 2025-01-25 17:40 | PM.EVENT ---
Event Note Date of Service: 01/26/25 Event Note: patient seen and exmained still very soar back( says similar from last2 days) denies chest pain or sob has tachycardia -torri trying to equiberlaise . s/p 1prbc yesterday physical exam and a&P -please see icu note. moniter h/h ely -next will be at 8 pm ?pneumonia -on zosyn d/w icu if clinically changes -please call back icu. Time Spent With Patient Time: Total time managing care of this patient today ____ minutes.
[2025-01-25 19:47] LABS: Hematocrit 25.6 % (42.0-52.0); Hemoglobin 9.0 g/dl (14.0-18.0); Mean Corpuscular HGB Conc 35.2 g/dl (31.0-36.0); Mean Corpuscular Hemoglobin 31.9 pg (27.0-33.0); Mean Corpuscular Volume 90.8 fL (80.0-98.0); NRBC Abs Auto 0.000 X10*3/uL (0.0-0.012); NRBC Pct Auto 0.0 /100WBC (0.0-0.2); Platelet Count 158 X10*3/uL (160-400); Red Blood Count 2.82 X10*6/uL (4.60-5.80); White Blood Count 16.8 X10*3/uL (4.8-10.8)
[2025-01-25 20:10] LABS: Alanine Aminotransferase 14 U/L (0-40); Albumin Level 3.3 g/dL (3.5-5.0); Alkaline Phosphatase 47 U/L (39-117); Anion Gap 11 (12-20); Aspartate Amino Transferase 37 U/L (5-37); Blood Urea Nitrogen 36 mg/dL (9-16); Calcium 8.1 mg/dL (8.4-10.2); Carbon Dioxide 21 mmol/L (22-29); Chloride 106 mmol/L (96-108); Creatinine Clr Calc Pharmacy 74.1; Estimated Glomerular Filt Rate 46; Potassium 4.3 mmol/L (3.3-5.1); Sodium 134 mmol/L (135-145); Total Protein 5.0 g/dL (6.5-8.0); Troponin-I High Sensitivity 27.3 ng/L (<3.5-35.0)
[2025-01-25 20:24] LABS: Thyroid Stimulating Hormone 0.52 uIU/mL (0.32-4.0)
[2025-01-25] MEDS: Lactated Ringers 1,000 ML 125 ML IVCONT (20:26)
[2025-01-25 20:50] LABS: Glucose, Whole Blood 282 mg/dL (60-115)
[2025-01-25 23:27] LABS: Glucose, Whole Blood 212 mg/dL (60-115)
[2025-01-26] VITALS (15 sets, daily range): BP systolic 134–166; BP diastolic 72–85; PULSE 104–124; RESP 16–20; TEMP 36.4–37.5; O2SAT 90–96; BMI 39.3
[2025-01-26] MEDS: Lactated Ringers 1,000 ML 125 ML IVCONT ×2 (03:58→11:08)
[2025-01-26 06:55] LABS: MANUAL DIFF FLAG NO
[2025-01-26 07:06] LABS: Hematocrit 25.5 % (42.0-52.0); Hemoglobin 8.6 g/dl (14.0-18.0); Imm Gran Abs Auto 0.09 X10*3/uL (0.00-0.03); Imm Gran Pct Auto 0.7 % (0.0-0.4); Lymphocytes Absolute Auto 1.2 X10*3/uL (1.2-4.9); Mean Corpuscular HGB Conc 33.7 g/dl (31.0-36.0); Mean Corpuscular Hemoglobin 31.6 pg (27.0-33.0); Mean Corpuscular Volume 93.8 fL (80.0-98.0); NRBC Abs Auto 0.000 X10*3/uL (0.0-0.012); NRBC Pct Auto 0.0 /100WBC (0.0-0.2); Platelet Count 137 X10*3/uL (160-400); Red Blood Count 2.72 X10*6/uL (4.60-5.80); White Blood Count 13.1 X10*3/uL (4.8-10.8)
[2025-01-26 07:27] LABS: Albumin Level 3.3 g/dL (3.5-5.0); Anion Gap 12 (12-20); Blood Urea Nitrogen 31 mg/dL (9-16); Calcium 8.1 mg/dL (8.4-10.2); Carbon Dioxide 23 mmol/L (22-29); Chloride 105 mmol/L (96-108); Creatinine Clr Calc Pharmacy 90.5; Estimated Glomerular Filt Rate 56; Magnesium 1.9 mg/dL (1.6-2.6); Potassium 4.1 mmol/L (3.3-5.1); Sodium 136 mmol/L (135-145)
[2025-01-26] MEDS: oxyCODONE HCl Immed Release 5 MG TABLET PO (08:17)
[2025-01-26] MEDS: Insulin Glargine,Hum.rec.anlog 100 UNIT/ML 10 ML VIAL 30 UNIT SUBCUT ×2 (08:18→21:08)
[2025-01-26] MEDS: Clotrimazole 1 % Cream 15 GM TUBE 1 APPL TOPICAL ×2 (09:09→21:10)
[2025-01-26] MEDS: Milk of Magnesia 30 ML ORAL.SUSP 15 ML PO (09:15)
[2025-01-26] MEDS: Lidocaine 4 % Patch ADH..PATCH 2 PATCH TRANSDERMA (10:29)
[2025-01-26 10:51] LABS: Glucose, Whole Blood 221 mg/dL (60-115)
[2025-01-26 11:09] LABS: Glucose, Whole Blood 263 mg/dL (60-115)
[2025-01-26] MEDS: oxyCODONE HCl Immed Release 5 MG TABLET 10 MG PO ×2 (13:47→21:06)
--- NOTE | 2025-01-26 14:04 | P.PNIM_ITS ---
Subjective Subjective Date of Service: 01/26/25 Interval History: anemia, tachycardia back soarness Review of Systems back soarness similar -alightly improving from last 2 days. tachycardia improving bp stable no new c/o nausea vomiting or urinary c/o. Physical Exam 2 Vital Signs: Vital Signs: Last Vital Signs Temp 97.6 F 01/26/25 13:41 Pulse 104 H 01/26/25 13:41 Resp 20 01/26/25 13:41 BP 155/83 H 01/26/25 13:41 Pulse Ox 96 01/26/25 13:40 O2 Del Method Nasal Cannula 01/26/25 13:40 O2 Flow Rate 2 01/26/25 13:40 BMI result Body Mass Index 39.3 Appearance: Alert.? Oriented X3.has pain /anxious ? cvs: rrr, [id number] . res: air entry fair ,no rales or wheezing abd: soft,no rebound or guarding ,nt, bs present. has lower back and buttock soarness ext pulses present , no cyanosis . neuro: axo3 , nonfocal. Objective Data Active Medications Acetaminophen (Acetaminophen 325 Mg Tablet) 975 mg PO Q6H [facility] Last Admin: 01/26/25 10:24 Dose: 975 mg Documented By: YAHAIRA Clotrimazole (Clotrimazole 1 % Cream 15 Gm Tube) 1 appl TOPICAL BID [facility] Last Admin: 01/26/25 09:09 Dose: 1 appl Documented By: YAHAIRA Dextrose (Dextrose 50 % 25 Gm/50 Ml Syringe) 25 gm IVPUSH Q15M PRN; Protocol PRN Reason: per Hypoglycemia Standing Ord. Dextrose (Dextrose 50 % 25 Gm/50 Ml Syringe) 25 gm IVPUSH Q15M PRN PRN Reason: per Hypoglycemia Standing Ord. Docusate Sodium (Docusate Sodium 100 Mg Capsule) 100 mg PO BID [facility] Last Admin: 01/26/25 08:18 Dose: 100 mg Documented By: YAHAIRA Docusate Sodium (Docusate Sodium 100 Mg/10 Ml Liquid) 100 mg PO BID [facility] Last Admin: 01/26/25 09:15 Dose: 100 mg Documented By: YAHAIRA Glucose (Glucose Gel 15 Gm Gel..Gram.) 15 gm PO Q15M PRN; Protocol PRN Reason: per Hypoglycemia Standing Ord. Piperacillin Sod/Tazobactam (Sod 4.5 gm/ Sodium Chloride) 100 mls @ 200 mls/hr IV Q6H [facility] Last Admin: 01/26/25 13:48 Dose: 200 mls/hr Documented By: YAHAIRA Lactated Ringer's (Lr) 1,000 mls @ 125 mls/hr IVCONT .Q8H [facility] Last Admin: 01/26/25 11:08 Dose: 125 mls/hr Documented By: YAHAIRA Insulin Glargine (Insulin Glargine,Hum.Rec.Anlog 100 Unit/Ml 10 Ml Vial) 30 unit SUBCUT BID [facility] Last Admin: 01/26/25 08:18 Dose: 30 unit Documented By: YAHAIRA Insulin Human Lispro (Insulin Lispro 100 Unit/Ml 3 Ml Vial) 0 unit SUBCUT QIDACHS [facility]; Protocol Last Admin: 01/26/25 11:06 Dose: 8 unit Documented By: YAHAIRA Comments: Levalbuterol HCl (Levalbuterol Hcl 1.25 Mg/3 Ml Vial.Neb) 1.25 mg INHALE Q4H [facility] Last Admin: 01/26/25 11:25 Dose: Not Given Documented By: MANDY Non-Admin Reason: Patient Refused Lidocaine (Lidocaine 4 % Patch Adh..Patch) 2 patch TRANSDERMA DAILY [facility]; Protocol Last Admin: 01/26/25 10:29 Dose: 2 patch Documented By: YAHAIRA Magnesium Hydroxide (Milk Of Magnesia 30 Ml Oral.Susp) 15 ml PO BEDTIME PRN PRN Reason: Constipation Last Admin: 01/26/25 09:15 Dose: 15 ml Documented By: YAHAIRA Comments: Per Dr. Buckley ok to give now Naloxone HCl (Naloxone Hcl 0.4 Mg/Ml Vial) 0.04 mg IVPUSH Q5M PRN PRN Reason: Excessive sedation or RR < 8 Ondansetron HCl (Ondansetron Hcl 4 Mg/2 Ml Vial) 4 mg IVPUSH Q4H PRN PRN Reason: Nausea and Vomiting Last Admin: 01/23/25 21:55 Dose: 4 mg Documented By: ABEL Oxycodone HCl (Oxycodone Hcl Immed Release 5 Mg Tablet) 10 mg PO Q6H PRN PRN Reason: Pain, Severe (Pain Scale 7-10) Last Admin: 01/26/25 13:47 Dose: 10 mg Documented By: YAHAIRA Polyethylene Glycol (Polyethylene Glycol 3350 17 Gm Powd.Pack) 17 gm PO DAILY [facility] Last Admin: 01/26/25 08:21 Dose: 17 gm Documented By: YAHAIRA Polyethylene Glycol (Polyethylene Glycol 3350 17 Gm Powd.Pack) 17 gm PO DAILY [facility] Last Admin: 01/26/25 09:13 Dose: Not Given Documented By: YAHAIRA Non-Admin Reason: ALREADY RECIEVED Senna (Sennosides 8.6 Mg Tablet) 17.2 mg PO BEDTIME PRN PRN Reason: Constipation Last Admin: 01/24/25 00:35 Dose: 17.2 mg Documented By: ABEL Vitamin D (Cholecalciferol (Vitamin D3) 25 Mcg Tablet) 50 mcg PO DAILY [facility] Last Admin: 01/26/25 08:18 Dose: 50 mcg Documented By: YAHAIRA Labs 01/26/25 06:51 01/26/25 06:51 Labs: Laboratory Results - last 24 hr 01/23/25 01/25/25 01/25/25 14:04 15:48 16:16 MCV 90.5 MCH 31.5 MCHC 34.8 RDW 13.2 Plt Count 173 MPV 10.2 Immature Gran % (Auto) 0.4 Neut % (Auto) 81.8 H Lymph % (Auto) 8.6 L Clark % (Auto) 9.1 Eos % (Auto) 0.0 Baso % (Auto) 0.1 Lymph # (Auto) 1.6 Clark # (Auto) 1.6 H Eos # (Auto) 0.0 Baso # (Auto) 0.0 Abs Immat Gran (auto) 0.07 H Absolute Neuts (auto) 14.8 H Absolute Nucleated RBC 0.000 Nucleated RBC % (auto) 0.0 Smear Tech's Comments VERIFIED Anion Gap Estim Creat Clear Calc Estimated GFR POC Glucose 243 H Random Glucose Lactic Acid Calcium Phosphorus Magnesium Total Bilirubin AST ALT Alkaline Phosphatase Total Creatine Kinase Troponin I High Sens Total Protein Albumin TSH Blood Type O Positive Antibody Screen NEGATIVE Crossmatch See Detail 01/25/25 01/25/25 01/25/25 19:42 20:47 23:20 MCV 90.8 MCH 31.9 MCHC 35.2 RDW 13.2 Plt Count 158 L MPV 10.0 Immature Gran % (Auto) Neut % (Auto) Lymph % (Auto) Clark % (Auto) Eos % (Auto) Baso % (Auto) Lymph # (Auto) Clark # (Auto) Eos # (Auto) Baso # (Auto) Abs Immat Gran (auto) Absolute Neuts (auto) Absolute Nucleated RBC 0.000 Nucleated RBC % (auto) 0.0 Smear Tech's Comments Anion Gap 11 L Estim Creat Clear Calc 74.1 Estimated GFR 46 POC Glucose 282 H 212 H Random Glucose 311 H Lactic Acid 1.9 Calcium 8.1 L D Phosphorus Magnesium Total Bilirubin 0.9 AST 37 ALT 14 Alkaline Phosphatase 47 Total Creatine Kinase 271 H Troponin I High Sens 27.3 Total Protein 5.0 L Albumin 3.3 L TSH 0.52 Blood Type Antibody Screen Crossmatch 01/26/25 01/26/25 01/26/25 06:51 07:10 11:04 MCV 93.8 MCH 31.6 MCHC 33.7 RDW 13.1 Plt Count 137 L MPV 10.2 Immature Gran % (Auto) 0.7 H Neut % (Auto) 79.5 H Lymph % (Auto) 9.2 L Clark % (Auto) 10.4 Eos % (Auto) 0.1 Baso % (Auto) 0.1 Lymph # (Auto) 1.2 Clark # (Auto) 1.4 H Eos # (Auto) 0.0 Baso # (Auto) 0.0 Abs Immat Gran (auto) 0.09 H Absolute Neuts (auto) 10.4 H Absolute Nucleated RBC 0.000 Nucleated RBC % (auto) 0.0 Smear Tech's Comments Anion Gap 12 Estim Creat Clear Calc 90.5 Estimated GFR 56 POC Glucose 221 H 263 H Random Glucose 244 H Lactic Acid Calcium 8.1 L Phosphorus 3.0 Magnesium 1.9 Total Bilirubin AST ALT Alkaline Phosphatase Total Creatine Kinase Troponin I High Sens Total Protein Albumin 3.3 L TSH Blood Type Antibody Screen Crossmatch Microbiology Microbiology Results: Microbiology 01/24/25 10:34 Blood Culture - Preliminary Blood - Venous No growth after 48 hours. 01/24/25 10:34 Blood Culture - Preliminary Blood - Venous No growth after 48 hours. 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 Urology service asked that pt be admitted for observartion overnight and no labs or imaging would be required (Rich Ramirez). acute bloodloss anemia and hypotesnion /hemtaoma: Status post renal procedure(ablation of a left renal tumor) Renal subcapsular/retroperitoneal hemorrhage just postoperative complication of renal tumor ablation. Underwent official radiology service care appreciated-L eft renal angiogram with attention to region of previously ablated left renal tumor was performed. No active extravasation was identified. h/h slowly trending down : d/w urology and IR(Dr Herbert and Dr Ramirez): sec to hematoma /dilutional clinically bp stable ,tachycardia improving 1 PRBC ordered, patient also received 1 PRBC on 01/24/25. moniter h/h closely , if new haemodynmic instabilityor h/h significantly down - we will consider reimaging if needed for further workup. pneumonia vs atelactais: leucocytosis improving tachycardia due to pain -improving with pain meds [place] mild due to dec po intake , nsaids use ,dehydration, hyperglycemia-seems improving significantly with hydration . acute lactic acidosis -sec to dm with hyperglycemia ,dec po intake ,albuterol use, not due to sepsis: improved with hydration. patient also has some desaturation when sleep- will add overnight sleep study vs cpap. incentive alexandro metry ,chest physiotherapy, he desats ID evaluation -continue zosyn. Diabetes with hyperglycemia: Even with giving insulinan dstarting lantus -reecived insuling drip in icu; lantus adjusted to 30 bid,continue sliding scale coverage. htn: bp somewhat elevated stop fluids, will closely moniter bp ,if persistently elevated ,we may consider small dose amlodipine . [place]:improved significantly with hydration moniter renal function /electrolytes closely constipation: passing gases started po inake yesterday ct abd 2 days back-no other issues(small bowel/colon) except hematoma as above. continue current luxatives -moniter closey ,if new morbid obesity: Encouraged to lose weight, cutdown calories. ongoing need: Acute blood loss anemia, pneumonia, diabetes with hyperglycemia, [place]: Patient need close renal function, electrolyte monitoring, pain control, close monitoring of h/h: Quality Stroke Does the patient have a stroke diagnosis?: No Reason for No Anti-thrombotic by Day Two: Contraindicated VTE Prior VTE?: No VTE Risk Level:: Medical - moderate - high VTE Device Contraindication: N/A - Device Ordered VTE Drug Contraindication: N/A - Med Ordered
[2025-01-26 15:36] LABS: Glucose, Whole Blood 250 mg/dL (60-115)
[2025-01-26 16:29] LABS: Hematocrit 26.7 % (42.0-52.0); Hemoglobin 9.4 g/dl (14.0-18.0)
[2025-01-26 20:34] LABS: Glucose, Whole Blood 260 mg/dL (60-115)
[2025-01-26 20:51] LABS: Hematocrit 26.0 % (42.0-52.0); Hemoglobin 9.0 g/dl (14.0-18.0); Mean Corpuscular HGB Conc 34.6 g/dl (31.0-36.0); Mean Corpuscular Hemoglobin 31.9 pg (27.0-33.0); Mean Corpuscular Volume 92.2 fL (80.0-98.0); NRBC Abs Auto 0.000 X10*3/uL (0.0-0.012); NRBC Pct Auto 0.0 /100WBC (0.0-0.2); Platelet Count 139 X10*3/uL (160-400); Red Blood Count 2.82 X10*6/uL (4.60-5.80); White Blood Count 13.0 X10*3/uL (4.8-10.8)
[2025-01-27] VITALS (14 sets, daily range): BP systolic 138–178; BP diastolic 64–88; PULSE 80–107; RESP 16–20; TEMP 36.7–37.4; O2SAT 92–97; BMI 37.9
--- NOTE | 2025-01-27 04:39 | PC.NURSE ---
Patient BP at 0400 noted to be 178/88 with continued tachycardia. Patient is asymptomatic. Provider notified and metoprolol 25mg ordered and administered, pending effect.
[2025-01-27 07:08] LABS: Hematocrit 25.2 % (42.0-52.0); Hemoglobin 8.6 g/dl (14.0-18.0); Mean Corpuscular HGB Conc 34.1 g/dl (31.0-36.0); Mean Corpuscular Hemoglobin 31.7 pg (27.0-33.0); Mean Corpuscular Volume 93.0 fL (80.0-98.0); NRBC Abs Auto 0.020 X10*3/uL (0.0-0.012); NRBC Pct Auto 0.2 /100WBC (0.0-0.2); Platelet Count 153 X10*3/uL (160-400); Red Blood Count 2.71 X10*6/uL (4.60-5.80); White Blood Count 12.1 X10*3/uL (4.8-10.8)
[2025-01-27 07:19] LABS: Glucose, Whole Blood 178 mg/dL (60-115)
[2025-01-27] MEDS: oxyCODONE HCl Immed Release 5 MG TABLET 10 MG PO (08:38)
[2025-01-27] MEDS: Lidocaine 4 % Patch ADH..PATCH 2 PATCH TRANSDERMA (08:38)
[2025-01-27] MEDS: Insulin Glargine,Hum.rec.anlog 100 UNIT/ML 10 ML VIAL 30 UNIT SUBCUT ×2 (08:39→21:41)
[2025-01-27] MEDS: Clotrimazole 1 % Cream 15 GM TUBE 1 APPL TOPICAL ×2 (08:40→21:40)
--- NOTE | 2025-01-27 08:55 | PM.CNNEP ---
History of Present Illness Reason for Consult Consult date: 01/27/25 Chief Complaint Chief complaint: s/p ablation of left renal tumor History of Present Illness Narrative: 54 y/o male with a medical history of HTN, DMII, obesity, anxiety, vit D deficiency, left renal tumor. 01/23 admitted for observation s/p targeted cryotherapy left upper pole lesion. 01/24 developed hypotension, imaging showed renal subscapular retroperitoneal hematoma. left renal angiogram with attention to region of previously ablated left renal tumor was performed and no active extravasation was identified. Nephrology consulted for ROSEANN. creatinine 1.39 on 01/23, on 01/24, 01/25 1.58, 01/26 is 1.33 patient reports he feels ok at bedside. States he is constipated. Denies other complaints. Reports he is making urine. Review of Systems Constitutional: Reports no additional constitutional complaints Cardiovascular: Denies chest pain, Denies leg edema, Denies lightheadedness and Denies dyspnea Respiratory: Denies dyspnea Gastrointestinal: Denies abdominal pain, Reports constipation, Denies diarrhea, Denies nausea and Denies vomiting Genitourinary: Denies hematuria, Denies oliguria, Denies dysuria and Denies flank pain Musculoskeletal: Denies arthralgias and Denies joint swelling Skin/Breast: Denies rash PMFSH Past Medical History Medical History Numbness Seizures Back pain Bronchitis Hyperlipidemia Diabetes type 2, uncontrolled Diabetic neuropathy associated with type 2 diabetes mellitus Hypertension Vitamin D deficiency Family History Family History Father Lung cancer Mother Pacemaker Maternal Grandmother Diabetes Brother CAD (coronary artery disease) Sister Hypertension Sister Myocardial infarction Sister Hearing problem Surgical History Surgical History History of tonsillectomy Social History Social History Housing: Apartment Are you a primary respiratory care program director to a significant other at home: No Do you presently have visiting nurse or other home services: No Alcohol intake: never Patient Tobacco Use Status: Never used Tobacco Tobacco use type: Cigarette e-Cigarette/Vaping Use: Never Used Second Hand Smoke Exposure: No Use of substances other than those prescribed or required for medical reasons: No Currently Displaying Signs/Symptoms of Drug Intoxication Withdrawal: No Have you been hit, kicked, punched, or otherwise hurt by someone within the past year? If so, by whom?: No Are you DNR?: No Advance Directives: No Advance Directives Information Provided: Yes Advance Directives on File: No Poor oral hygiene: No service: No Current occupational status: unemployed and disabled Cognitive needs: No Hearing needs: No Vision needs: No Travel History Ebola Risk: Travel/Contact With Anyone From Affected Area/s: No Has Patient Experienced Ebola Symptoms: No Meds Allergies Allergy/AdvReac Type Severity Reaction Status Date / Time metformin Allergy Unknown Unknown Verified 12/20/24 10:54 Active Medications: Current Medications Acetaminophen (Acetaminophen 325 Mg Tablet) 975 mg PO Q6H [facility] Last Admin: 01/27/25 04:28 Dose: 975 mg Clotrimazole (Clotrimazole 1 % Cream 15 Gm Tube) 1 appl TOPICAL BID [facility] Last Admin: 01/27/25 08:40 Dose: 1 appl Dextrose (Dextrose 50 % 25 Gm/50 Ml Syringe) 25 gm IVPUSH Q15M PRN; Protocol PRN Reason: per Hypoglycemia Standing Ord. Dextrose (Dextrose 50 % 25 Gm/50 Ml Syringe) 25 gm IVPUSH Q15M PRN PRN Reason: per Hypoglycemia Standing Ord. Docusate Sodium (Docusate Sodium 100 Mg Capsule) 100 mg PO BID [facility] Last Admin: 01/27/25 08:38 Dose: 100 mg Docusate Sodium (Docusate Sodium 100 Mg/10 Ml Liquid) 100 mg PO BID [facility] Last Admin: 01/27/25 08:39 Dose: Not Given Glucose (Glucose Gel 15 Gm Gel..Gram.) 15 gm PO Q15M PRN; Protocol PRN Reason: per Hypoglycemia Standing Ord. Piperacillin Sod/Tazobactam (Sod 4.5 gm/ Sodium Chloride) 100 mls @ 200 mls/hr IV Q6H [facility] Last Infusion: 01/27/25 08:47 Dose: Infused Insulin Glargine (Insulin Glargine,Hum.Rec.Anlog 100 Unit/Ml 10 Ml Vial) 30 unit SUBCUT BID [facility] Last Admin: 01/27/25 08:39 Dose: 30 unit Insulin Human Lispro (Insulin Lispro 100 Unit/Ml 3 Ml Vial) 0 unit SUBCUT QIDACHS [facility]; Protocol Last Admin: 01/27/25 08:39 Dose: 2 unit Levalbuterol HCl (Levalbuterol Hcl 1.25 Mg/3 Ml Vial.Neb) 1.25 mg INHALE Q4H [facility] Last Admin: 01/27/25 07:26 Dose: 1.25 mg Lidocaine (Lidocaine 4 % Patch Adh..Patch) 2 patch TRANSDERMA DAILY [facility]; Protocol Last Admin: 01/27/25 08:38 Dose: 2 patch Magnesium Hydroxide (Milk Of Magnesia 30 Ml Oral.Susp) 15 ml PO BEDTIME PRN PRN Reason: Constipation Last Admin: 01/26/25 09:15 Dose: 15 ml Metoprolol Tartrate (Metoprolol Tartrate 25 Mg Tablet) 25 mg PO BID [facility]; Protocol Last Admin: 01/27/25 04:28 Dose: 25 mg Naloxone HCl (Naloxone Hcl 0.4 Mg/Ml Vial) 0.04 mg IVPUSH Q5M PRN PRN Reason: Excessive sedation or RR < 8 Ondansetron HCl (Ondansetron Hcl 4 Mg/2 Ml Vial) 4 mg IVPUSH Q4H PRN PRN Reason: Nausea and Vomiting Last Admin: 01/23/25 21:55 Dose: 4 mg Oxycodone HCl (Oxycodone Hcl Immed Release 5 Mg Tablet) 10 mg PO Q6H PRN PRN Reason: Pain, Severe (Pain Scale 7-10) Last Admin: 01/27/25 08:38 Dose: 10 mg Polyethylene Glycol (Polyethylene Glycol 3350 17 Gm Powd.Pack) 17 gm PO DAILY [facility] Last Admin: 01/27/25 08:38 Dose: 17 gm Polyethylene Glycol (Polyethylene Glycol 3350 17 Gm Powd.Pack) 17 gm PO DAILY [facility] Last Admin: 01/27/25 08:39 Dose: Not Given Senna (Sennosides 8.6 Mg Tablet) 17.2 mg PO BEDTIME PRN PRN Reason: Constipation Last Admin: 01/24/25 00:35 Dose: 17.2 mg Vitamin D (Cholecalciferol (Vitamin D3) 25 Mcg Tablet) 50 mcg PO DAILY [facility] Last Admin: 01/27/25 08:38 Dose: 50 mcg Home Medications ?Medication ?Instructions ?Recorded ?Confirmed ?Last Taken ?Type atorvastatin 40 mg tablet 40 mg PO BEDTIME 01/17/25 01/17/25 01/22/25 History pioglitazone 45 mg tablet 45 mg PO BEDTIME 01/17/25 01/17/25 01/22/25 History empagliflozin 25 mg tablet 25 mg PO DAILY 01/23/25 01/23/25 01/18/25 History (Jardiance) Physical Exam Vital Signs: Last Vital Signs Temp 98.5 F 01/27/25 07:01 Pulse 85 01/27/25 07:26 Resp 16 01/27/25 07:26 BP 150/72 H 01/27/25 07:01 Pulse Ox 97 01/27/25 07:01 O2 Del Method Nasal Cannula 01/27/25 07:01 O2 Flow Rate 1 01/27/25 07:01 BMI result Body Mass Index 37.9 Const General: no acute distress, alert and awake Resp Effort & Inspection: normal respiratory effort and able to speak in complete sentences Auscultation: clear to auscultation bilaterally Cardio Rate: regular rate Rhythm: regular rhythm Heart sounds: S1 normal heart sound present and S2 normal heart sound present GI Palpation (GI): Soft to palpation and nontender Skin Rashes: no rashes Extrem General: No edema Results Lab Results 01/27/25 06:16 01/26/25 06:51 Lab results: Chemistry 01/24/25 01/24/25 01/25/25 12:30 19:16 05:23 Sodium 130 L 133 L 138 Potassium 4.6 4.4 4.0 Carbon Dioxide 23 18 L 22 BUN 26 H 28 H 32 H Creatinine 1.71 H 1.64 H 1.72 H Calcium 9.1 8.5 D 8.8 Phosphorus 3.6 01/25/25 01/26/25 19:42 06:51 Sodium 134 L 136 Potassium 4.3 4.1 Carbon Dioxide 21 L 23 BUN 36 H 31 H Creatinine 1.58 H 1.33 Calcium 8.1 L D 8.1 L Phosphorus 3.0 Hematology 01/24/25 01/24/25 01/24/25 12:30 14:35 14:35 WBC 18.2 H Hgb 11.6 L 10.2 L 10.1 L Plt Count 196 01/24/25 01/25/25 01/25/25 19:16 05:23 15:48 WBC 19.8 H 20.9 H 18.1 H Hgb 11.0 L 10.7 L 9.3 L Plt Count 173 191 173 01/25/25 01/26/25 01/26/25 19:42 06:51 15:52 WBC 16.8 H 13.1 H Hgb 9.0 L 8.6 L 9.4 L Plt Count 158 L 137 L 01/26/25 01/27/25 20:42 06:16 WBC 13.0 H 12.1 H Hgb 9.0 L 8.6 L Plt Count 139 L 153 L Urinalysis 01/24/25 10:20 Urine RBC 0-2 Urine WBC 0-5 Ur Squamous Epith Cells 0-2 Hyaline Casts 0-2 Assessment and Plan (1) ROSEANN (acute kidney injury): Status: Acute Plan ROSEANN likely ATN from hemodyanic ROSEANN - pt hypotensive renal function improving recommend avoiding hypotension, avoid nephrotoxins encourage hydration Recommend regular blood pressure checks I&O monitoring daily renal function studies continue supportive care Discussed with Dr Villalpando. Procedures Date of Service Date of Service: 01/27/25
[2025-01-27 11:30] LABS: Glucose, Whole Blood 220 mg/dL (60-115)
--- NOTE | 2025-01-27 11:50 | HO.PM.IMPN ---
Subjective Subjective Date of Service: 01/27/25 Interval History: anemia, tachycardia back soarness Review of Systems pain somewhat improving h/h slowly trending down passed bm yesterday(big bm) Physical Exam Vital Signs: Vital Signs: Last Vital Signs Temp 98.5 F 01/27/25 11:20 Pulse 87 01/27/25 11:20 Resp 18 01/27/25 11:20 BP 140/69 H 01/27/25 11:20 Pulse Ox 96 01/27/25 11:20 O2 Del Method Room Air 01/27/25 11:20 O2 Flow Rate 1 01/27/25 07:01 BMI result Body Mass Index 37.9 Appearance: Alert.? Oriented X3.has pain /anxious ? cvs: rrr, [id number] . res: air entry fair ,no rales or wheezing abd: soft,no rebound or guarding ,nt, bs present. has lower back and buttock soarness ext pulses present , no cyanosis . neuro: axo3 , nonfocal. Objective Data Active Medications Acetaminophen (Acetaminophen 325 Mg Tablet) 975 mg PO Q6H [facility] Last Admin: 01/27/25 04:28 Dose: 975 mg Documented By: GRACIELA Clotrimazole (Clotrimazole 1 % Cream 15 Gm Tube) 1 appl TOPICAL BID [facility] Last Admin: 01/27/25 08:40 Dose: 1 appl Documented By: YAHAIRA Dextrose (Dextrose 50 % 25 Gm/50 Ml Syringe) 25 gm IVPUSH Q15M PRN; Protocol PRN Reason: per Hypoglycemia Standing Ord. Dextrose (Dextrose 50 % 25 Gm/50 Ml Syringe) 25 gm IVPUSH Q15M PRN PRN Reason: per Hypoglycemia Standing Ord. Docusate Sodium (Docusate Sodium 100 Mg Capsule) 100 mg PO BID [facility] Last Admin: 01/27/25 08:38 Dose: 100 mg Documented By: YAHAIRA Docusate Sodium (Docusate Sodium 100 Mg/10 Ml Liquid) 100 mg PO BID [facility] Last Admin: 01/27/25 08:39 Dose: Not Given Documented By: YAHIARA Non-Admin Reason: Duplicate Order Glucose (Glucose Gel 15 Gm Gel..Gram.) 15 gm PO Q15M PRN; Protocol PRN Reason: per Hypoglycemia Standing Ord. Piperacillin Sod/Tazobactam (Sod 4.5 gm/ Sodium Chloride) 100 mls @ 200 mls/hr IV Q6H [facility] Last Infusion: 01/27/25 08:47 Dose: Infused Documented By: YAHAIRA Insulin Glargine (Insulin Glargine,Hum.Rec.Anlog 100 Unit/Ml 10 Ml Vial) 30 unit SUBCUT BID [facility] Last Admin: 01/27/25 08:39 Dose: 30 unit Documented By: YAHAIRA Insulin Human Lispro (Insulin Lispro 100 Unit/Ml 3 Ml Vial) 0 unit SUBCUT QIDACHS [facility]; Protocol Last Admin: 01/27/25 08:39 Dose: 2 unit Documented By: YAHAIRA Levalbuterol HCl (Levalbuterol Hcl 1.25 Mg/3 Ml Vial.Neb) 1.25 mg INHALE Q4H [facility] Last Admin: 01/27/25 11:14 Dose: 1.25 mg Documented By: KEYONA Lidocaine (Lidocaine 4 % Patch Adh..Patch) 2 patch TRANSDERMA DAILY [facility]; Protocol Last Admin: 01/27/25 08:38 Dose: 2 patch Documented By: YHAAIRA Magnesium Hydroxide (Milk Of Magnesia 30 Ml Oral.Susp) 15 ml PO BEDTIME PRN PRN Reason: Constipation Last Admin: 01/26/25 09:15 Dose: 15 ml Documented By: YAHAIRA Comments: Per Dr. Buckley ok to give now Metoprolol Tartrate (Metoprolol Tartrate 25 Mg Tablet) 25 mg PO BID [facility]; Protocol Last Admin: 01/27/25 04:28 Dose: 25 mg Documented By: GRACIELA Naloxone HCl (Naloxone Hcl 0.4 Mg/Ml Vial) 0.04 mg IVPUSH Q5M PRN PRN Reason: Excessive sedation or RR < 8 Ondansetron HCl (Ondansetron Hcl 4 Mg/2 Ml Vial) 4 mg IVPUSH Q4H PRN PRN Reason: Nausea and Vomiting Last Admin: 01/23/25 21:55 Dose: 4 mg Documented By: ABEL Oxycodone HCl (Oxycodone Hcl Immed Release 5 Mg Tablet) 10 mg PO Q6H PRN PRN Reason: Pain, Severe (Pain Scale 7-10) Last Admin: 01/27/25 08:38 Dose: 10 mg Documented By: YAHAIRA Polyethylene Glycol (Polyethylene Glycol 3350 17 Gm Powd.Pack) 17 gm PO DAILY [facility] Last Admin: 01/27/25 08:38 Dose: 17 gm Documented By: YAHAIRA Polyethylene Glycol (Polyethylene Glycol 3350 17 Gm Powd.Pack) 17 gm PO DAILY [facility] Last Admin: 01/27/25 08:39 Dose: Not Given Documented By: YAHAIRA Non-Admin Reason: Duplicate Order Senna (Sennosides 8.6 Mg Tablet) 17.2 mg PO BEDTIME PRN PRN Reason: Constipation Last Admin: 01/24/25 00:35 Dose: 17.2 mg Documented By: ABEL Vitamin D (Cholecalciferol (Vitamin D3) 25 Mcg Tablet) 50 mcg PO DAILY [facility] Last Admin: 01/27/25 08:38 Dose: 50 mcg Documented By: YAHAIRA Labs 01/27/25 06:16 01/26/25 06:51 Labs: Laboratory Results - last 24 hr 01/23/25 01/26/25 01/26/25 14:04 06:51 15:06 MCV MCH MCHC RDW Plt Count MPV Absolute Nucleated RBC Nucleated RBC % (auto) Hold Purple Top POC Glucose 250 H Total Creatine Kinase 214 H Blood Type Antibody Screen Crossmatch See Detail 01/26/25 01/26/25 01/27/25 20:31 20:42 06:16 MCV 92.2 93.0 MCH 31.9 31.7 MCHC 34.6 34.1 RDW 13.2 13.1 Plt Count 139 L 153 L MPV 9.9 10.4 Absolute Nucleated RBC 0.000 0.020 H Nucleated RBC % (auto) 0.0 0.2 Hold Purple Top Cancelled POC Glucose 260 H Total Creatine Kinase Blood Type Antibody Screen Crossmatch 01/27/25 01/27/25 01/27/25 07:02 10:41 11:15 MCV MCH MCHC RDW Plt Count MPV Absolute Nucleated RBC Nucleated RBC % (auto) Hold Purple Top POC Glucose 178 H 220 H Total Creatine Kinase Blood Type O Positive Antibody Screen NEGATIVE Crossmatch See Detail Microbiology Microbiology Results: Microbiology 01/24/25 10:34 Blood Culture - Preliminary Blood - Venous No growth after 48 hours. 01/24/25 10:34 Blood Culture - Preliminary Blood - Venous No growth after 48 hours. 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 Urology service asked that pt be admitted for observartion overnight and no labs or imaging would be required (Rich Ramirez). acute bloodloss anemia and hypotesnion /hemtaoma: Status post renal procedure(ablation of a left renal tumor) Renal subcapsular/retroperitoneal hemorrhage just postoperative complication of renal tumor ablation. Underwent official radiology service care appreciated-Left renal angiogram with attention to region of previously ablated left renal tumor was performed. No active extravasation was identified. h/h slowly trending down : d/w urology and IR: sec to hematoma /dilutional clinically bp stable ,tachycardia improving s/p 2 prbc in this asmission(1 PRBC 01/26, patient also received 1 PRBC on 01/24/25.) added another prbc today seen by urology -continue to moniter -no further intervention at present. moniter h/h closely , if new haemodynmic instability -will reach out to IR/urology. pneumonia vs atelactais: leucocytosis improving tachycardia due to pain -improving with pain meds blood cultures negative @48hrs roseann mild due to dec po intake , nsaids use ,dehydration, hyperglycemia-seems improving significantly with hydration . acute lactic acidosis -sec to dm with hyperglycemia ,dec po intake ,albuterol use, not due to sepsis: improved with hydration. patient also has some desaturation when sleep- will add overnight sleep study vs cpap. incentive alexandro metry ,chest physiotherapy, he desats ID evaluation -continue zosyn. Diabetes with hyperglycemia: Even with giving insulinan dstarting lantus -reecived insuling drip in icu; lantus adjusted to 30 bid,continue sliding scale coverage. htn: bp somewhat elevated started on metoprolol. roseann:improved significantly with hydration moniter renal function /electrolytes closely constipation: passing gases started po inake continue current luxatives -moniter closey passed bm yesterday morbid obesity: Encouraged to lose weight, cutdown calories. ongoing need: Acute blood loss anemia, pneumonia, diabetes with hyperglycemia, ROSEANN: Patient need close renal function, electrolyte monitoring, pain control, close monitoring of h/h: Quality Stroke Does the patient have a stroke diagnosis?: No Reason for No Anti-thrombotic by Day Two: Contraindicated VTE Prior VTE?: No VTE Risk Level:: Medical - moderate - high VTE Device Contraindication: N/A - Device Ordered VTE Drug Contraindication: N/A - Med Ordered
--- NOTE | 2025-01-27 14:18 | P.PNUR_ITS ---
Subjective Subjective Date of Service: 01/27/25 Interval history: Postop day 3 from renal RFA Improving blood pressure Creatinine resolving Good urine output Positive bowel movement Continue bedrest today and may be ready for discharge tomorrow Physical Exam 2 Vital Signs: Vital Signs: Last Vital Signs Temp 98.7 F 01/27/25 12:23 Pulse 104 H 01/27/25 12:23 Resp 20 01/27/25 12:23 BP 141/64 H 01/27/25 12:23 Pulse Ox 96 01/27/25 11:20 O2 Del Method Room Air 01/27/25 11:20 O2 Flow Rate 1 01/27/25 07:01 BMI result Body Mass Index 37.9 Const: General: cooperative, healthy appearing, comfortable and no acute distress Orientation/consciousness: patient oriented x3 HEENT: Face and sinus: Yes normal facial exam Mouth: moist mucous membranes Neck: Neck: Yes normal visual inspection, Yes full ROM and Yes trachea midline Chest: Chest palpation & inspection: normal inspection of the chest Resp: Effort & Inspection: normal respiratory effort, able to speak in complete sentences and no respiratory distress GI: Inspection: Yes normal to inspection Back/Spine/Pelvis: Cervical Spine: normal cervical lordosis Thoracic/Lumbar Spine: thoracic and lumbar spine normal to inspection Skin: General skin exam: no rashes or lesions noted Neuro: General: patient oriented x3, tone normal and moves all extremities Extrem: General: Yes normal to inspection and Yes capillary refill normal Urology Results Labs 01/27/25 06:16 01/26/25 06:51 Labs: Laboratory Results - last 24 hr 01/26/25 01/26/25 01/26/25 06:51 15:06 15:52 WBC RBC Hgb 9.4 L Hct 26.7 L MCV MCH MCHC RDW Plt Count MPV Absolute Nucleated RBC Nucleated RBC % (auto) Hold Purple Top POC Glucose 250 H Total Creatine Kinase 214 H Blood Type Antibody Screen Crossmatch 01/26/25 01/26/25 01/27/25 20:31 20:42 06:16 WBC 13.0 H 12.1 H RBC 2.82 L 2.71 L Hgb 9.0 L 8.6 L Hct 26.0 L 25.2 L MCV 92.2 93.0 MCH 31.9 31.7 MCHC 34.6 34.1 RDW 13.2 13.1 Plt Count 139 L 153 L MPV 9.9 10.4 Absolute Nucleated RBC 0.000 0.020 H Nucleated RBC % (auto) 0.0 0.2 Hold Purple Top Cancelled POC Glucose 260 H Total Creatine Kinase Blood Type Antibody Screen Crossmatch 01/27/25 01/27/25 01/27/25 07:02 10:41 11:15 WBC RBC Hgb Hct MCV MCH MCHC RDW Plt Count MPV Absolute Nucleated RBC Nucleated RBC % (auto) Hold Purple Top POC Glucose 178 H 220 H Total Creatine Kinase Blood Type O Positive Antibody Screen NEGATIVE Crossmatch See Detail Progress Note: A&P Assessment and plan (1) Renal mass: Status: Acute Plan Reviewed tomorrow Time Spent With Patient Time: Total time managing care of this patient today ____ minutes. Progress Note: Quality Stroke Does the patient have a stroke diagnosis?: No Reason for No Anti-thrombotic by Day Two: Contraindicated
--- NOTE | 2025-01-27 15:27 | MHC.CM.PN ---
Per rounds, pt. is not ready to DC, DCP: home, self care, CM to follow.
[2025-01-27 16:16] LABS: Glucose, Whole Blood 219 mg/dL (60-115)
[2025-01-27 19:31] LABS: Hematocrit 29.0 % (42.0-52.0); Hemoglobin 10.0 g/dl (14.0-18.0)
[2025-01-27 19:57] LABS: Glucose, Whole Blood 279 mg/dL (60-115)
--- NOTE | 2025-01-27 22:49 | PC.RT ---
Tried to place pt on sleppt study. pt refued until 1am. then he said he would go on. pt was told he needs atleast 4 hours of sleep for a good study. Will come back at 1am and re-attempt
[2025-01-28] VITALS (10 sets, daily range): BP systolic 147–171; BP diastolic 72–83; PULSE 80–90; RESP 16–20; TEMP 36.6–37.3; O2SAT 91–94; BMI 38.0; BMI 39.3
--- NOTE | 2025-01-28 04:11 | PC.RT ---
Pt placed on sleep study at 0110 on 01/28/2025. Pt was taken off at 0415 says he can not tolerate it anymore. Will have it read by Sleep curb and gutter laborer to see if its conclusive.
--- NOTE | 2025-01-28 06:17 | PC.RT ---
pt could not tolerate sleep study inpatient. If suspect KATERIN, I would recommend doing an outpatient sleep study after discharge. Would recommend overnight oximetry to see if oxygen is needed while pt is inpatient.
[2025-01-28 07:25] LABS: Glucose, Whole Blood 135 mg/dL (60-115)
[2025-01-28 07:40] LABS: Hematocrit 27.5 % (42.0-52.0); Hemoglobin 9.5 g/dl (14.0-18.0); Mean Corpuscular HGB Conc 34.5 g/dl (31.0-36.0); Mean Corpuscular Hemoglobin 31.7 pg (27.0-33.0); Mean Corpuscular Volume 91.7 fL (80.0-98.0); NRBC Abs Auto 0.000 X10*3/uL (0.0-0.012); NRBC Pct Auto 0.0 /100WBC (0.0-0.2); Platelet Count 165 X10*3/uL (160-400); Red Blood Count 3.00 X10*6/uL (4.60-5.80); White Blood Count 10.2 X10*3/uL (4.8-10.8)
[2025-01-28 07:55] LABS: Anion Gap 11 (12-20); Blood Urea Nitrogen 21 mg/dL (9-16); Calcium 8.6 mg/dL (8.4-10.2); Carbon Dioxide 26 mmol/L (22-29); Chloride 102 mmol/L (96-108); Creatinine Clr Calc Pharmacy 102.0; Estimated Glomerular Filt Rate > 60; Potassium 4.0 mmol/L (3.3-5.1); Sodium 135 mmol/L (135-145)
[2025-01-28] MEDS: Insulin Glargine,Hum.rec.anlog 100 UNIT/ML 10 ML VIAL 30 UNIT SUBCUT ×2 (08:31→20:21)
[2025-01-28] MEDS: Lidocaine 4 % Patch ADH..PATCH 2 PATCH TRANSDERMA (08:31)
[2025-01-28] MEDS: Clotrimazole 1 % Cream 15 GM TUBE 1 APPL TOPICAL (08:39)
[2025-01-28 11:35] LABS: Glucose, Whole Blood 215 mg/dL (60-115)
--- NOTE | 2025-01-28 14:35 | P.PNIM_ITS ---
Subjective Subjective Date of Service: 01/28/25 Interval History: anemia, tachycardia back soarness Review of Systems pain somewhat improving h/h slowly trending down passed bm yesterday(big bm) Physical Exam 2 Vital Signs: Vital Signs: Last Vital Signs Temp 99.2 F 01/28/25 12:00 Pulse 81 01/28/25 12:00 Resp 18 01/28/25 12:00 BP 150/80 H 01/28/25 12:00 Pulse Ox 94 01/28/25 12:00 O2 Del Method Room Air 01/28/25 12:00 O2 Flow Rate 1 01/28/25 08:00 BMI result Body Mass Index 38.0 Const: General: cooperative, healthy appearing, comfortable and no acute distress Orientation/consciousness: patient oriented x3 HEENT: Face and sinus: Yes normal facial exam Mouth: moist mucous membranes Neck: Neck: Yes normal visual inspection, Yes full ROM and Yes trachea midline Chest: Chest palpation & inspection: normal inspection of the chest Resp: Effort & Inspection: normal respiratory effort, able to speak in complete sentences and no respiratory distress GI: Inspection: Yes normal to inspection Back/Spine/Pelvis: Cervical Spine: normal cervical lordosis Thoracic/Lumbar Spine: thoracic and lumbar spine normal to inspection Skin: General skin exam: no rashes or lesions noted Neuro: General: patient oriented x3, tone normal and moves all extremities Extrem: General: Yes normal to inspection and Yes capillary refill normal Objective Data Active Medications Acetaminophen (Acetaminophen 325 Mg Tablet) 975 mg PO Q6H [facility] Last Admin: 01/28/25 11:58 Dose: 975 mg Documented By: SHONA Clotrimazole (Clotrimazole 1 % Cream 15 Gm Tube) 1 appl TOPICAL BID [facility] Last Admin: 01/28/25 08:39 Dose: 1 appl Documented By: SHONA Dextrose (Dextrose 50 % 25 Gm/50 Ml Syringe) 25 gm IVPUSH Q15M PRN; Protocol PRN Reason: per Hypoglycemia Standing Ord. Dextrose (Dextrose 50 % 25 Gm/50 Ml Syringe) 25 gm IVPUSH Q15M PRN PRN Reason: per Hypoglycemia Standing Ord. Docusate Sodium (Docusate Sodium 100 Mg Capsule) 100 mg PO BID [facility] [place] Last Admin: 01/28/25 08:30 Dose: 100 mg Documented By: SHONA Glucose (Glucose Gel 15 Gm Gel..Gram.) 15 gm PO Q15M PRN; Protocol PRN Reason: per Hypoglycemia Standing Ord. Piperacillin Sod/Tazobactam (Sod 4.5 gm/ Sodium Chloride) 100 mls @ 200 mls/hr IV Q6H [facility] Last Infusion: 01/28/25 13:32 Dose: Infused Documented By: SHONA Insulin Glargine (Insulin Glargine,Hum.Rec.Anlog 100 Unit/Ml 10 Ml Vial) 30 unit SUBCUT BID [facility] Last Admin: 01/28/25 08:31 Dose: 30 unit Documented By: SHONA Insulin Human Lispro (Insulin Lispro 100 Unit/Ml 3 Ml Vial) 0 unit SUBCUT QIDACHS [facility] [place]; Protocol Last Admin: 01/28/25 11:58 Dose: 4 unit Documented By: SHONA Levalbuterol HCl (Levalbuterol Hcl 1.25 Mg/3 Ml Vial.Neb) 1.25 mg INHALE RQID [facility] Last Admin: 01/28/25 11:49 Dose: 1.25 mg Documented By: DONNA Lidocaine (Lidocaine 4 % Patch Adh..Patch) 2 patch TRANSDERMA DAILY [facility]; Protocol Last Admin: 01/28/25 08:31 Dose: 2 patch Documented By: SHONA Magnesium Hydroxide (Milk Of Magnesia 30 Ml Oral.Susp) 15 ml PO BEDTIME PRN PRN Reason: Constipation Last Admin: 01/26/25 09:15 Dose: 15 ml Documented By: YAHAIRA Comments: Per Dr. Buckley ok to give now Metoprolol Tartrate (Metoprolol Tartrate 25 Mg Tablet) 25 mg PO BID [facility]; Protocol Last Admin: 01/28/25 08:30 Dose: 25 mg Documented By: SHONA Naloxone HCl (Naloxone Hcl 0.4 Mg/Ml Vial) 0.04 mg IVPUSH Q5M PRN PRN Reason: Excessive sedation or RR < 8 Ondansetron HCl (Ondansetron Hcl 4 Mg/2 Ml Vial) 4 mg IVPUSH Q4H PRN PRN Reason: Nausea and Vomiting Last Admin: 01/23/25 21:55 Dose: 4 mg Documented By: ABEL Oxycodone HCl (Oxycodone Hcl Immed Release 5 Mg Tablet) 10 mg PO Q6H PRN PRN Reason: Pain, Severe (Pain Scale 7-10) Last Admin: 01/27/25 08:38 Dose: 10 mg Documented By: YAHAIRA Senna (Sennosides 8.6 Mg Tablet) 17.2 mg PO BEDTIME PRN PRN Reason: Constipation Last Admin: 01/27/25 21:38 Dose: 17.2 mg Documented By: GRACIELA Vitamin D (Cholecalciferol (Vitamin D3) 25 Mcg Tablet) 50 mcg PO DAILY [facility] Last Admin: 01/28/25 08:30 Dose: 50 mcg Documented By: SHONA Labs 01/28/25 07:34 01/28/25 07:34 Labs: Laboratory Results - last 24 hr 01/27/25 01/27/25 01/27/25 10:41 15:54 19:53 MCV MCH MCHC RDW Plt Count MPV Absolute Nucleated RBC Nucleated RBC % (auto) Anion Gap Estim Creat Clear Calc Estimated GFR POC Glucose 219 H 279 H Random Glucose Calcium Crossmatch See Detail 01/28/25 01/28/25 01/28/25 07:07 07:34 11:19 MCV 91.7 MCH 31.7 MCHC 34.5 RDW 13.0 Plt Count 165 MPV 9.8 Absolute Nucleated RBC 0.000 Nucleated RBC % (auto) 0.0 Anion Gap 11 L Estim Creat Clear Calc 102.0 Estimated GFR > 60 POC Glucose 135 H 215 H Random Glucose 134 H Calcium 8.6 D Crossmatch Assessment and Plan (1) Hematoma: Status: Acute Plan 54 yo male with PMH DMII, HTN, HLD, Obesity, VIT D deficiency is 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 Urology service asked that pt be admitted for observartion overnight and no labs or imaging would be required (Rich Ramirez). acute blood loss anemia and hypotesnion /hemtaoma: Status post renal procedure(ablation of a left renal tumor) Renal subcapsular/retroperitoneal hemorrhage just postoperative complication of renal tumor ablation. Underwent official radiology service care appreciated- Left renal angiogram with attention to region of previously ablated left renal tumor was performed. No active extravasation was identified. h/h slowly trending down : d/w urology and IR: sec to hematoma /dilutional clinically bp stable ,tachycardia improving s/p 3 prbc in this asmission(1 PRBC 01/26, patient also received 1 PRBC on 01/24/25., 1 on 01/27/25) seen by urology -continue to monitor -no further intervention at present. pneumonia vs atelactais: leucocytosis improving tachycardia due to pain -improving with pain meds blood cultures negative @48hrs [place] mild due to dec po intake , nsaids use ,dehydration, hyperglycemia-seems improving significantly with hydration . acute lactic acidosis -sec to dm with hyperglycemia ,dec po intake ,albuterol use, not due to sepsis: improved with hydration. patient also has some desaturation when sleep- will add overnight sleep study vs cpap. incentive alexandro metry ,chest physiotherapy, he desats ID evaluation -continue zosyn. Diabetes with hyperglycemia: Even with giving insulinan dstarting lantus -reecived insuling drip in icu; lantus adjusted to 30 bid,continue sliding scale coverage. htn: bp somewhat elevated started on metoprolol. [place]:improved significantly with hydration moniter renal function /electrolytes closely morbid obesity: Encouraged to lose weight, cutdown calories. reason for continued hospitalization: montioring for blood loss Quality Stroke Does the patient have a stroke diagnosis?: No Reason for No Anti-thrombotic by Day Two: Contraindicated VTE Prior VTE?: No VTE Risk Level:: Medical - moderate - high VTE Device Contraindication: N/A - Device Ordered VTE Drug Contraindication: N/A - Med Ordered
[2025-01-28 15:52] LABS: Glucose, Whole Blood 169 mg/dL (60-115)
--- NOTE | 2025-01-28 17:13 | HO.RADPN ---
RADIOLOGY Narrative Narrative: HPI: Chinedu is a 54-year-old male status post microwave ablation of a left renal mass on 01/23/25 complicated by a renal subcapsular/retroperitoneal hemorrhage. A renal angiogram was performed due to suspected active bleed on 01/24/25 and there was no active extravasation or arterial abnormality found. H and H has been on the lower side, has had several transfusions thus far and got another today. His vital signs are stable however he is endorsing left flank pain that has been slowly improving. Physical exam: NAD, RRR, CTABL. L flank and groin site well-healed. No flank tenderness Assessment and Plan: Chinedu is a 54-year-old male status post microwave ablation of a left renal mass on 01/23/25 complicated by a renal subcapsular/retroperitoneal hemorrhage.? Vital signs stable at this time, contact interventional radiology for any instability. Continue to trend hemoglobin and hematocrit with PRBC infusions as needed. When stabilized, patient ok for discharge.? Pain is slowly improving, continue oral pain regimen.? Given current patient hemodynamics stability, no imaging needed at this time. Plan will be for follow up imaging in 6-12 weeks to assess for treatment response. Follow up with outpatient urologist and [facility]. Patient seen and evaluated by Daniel Rocha NP. <Daniel Rocha NP - Last Filed: 01/28/25 17:17> HPI: Chinedu is a 54-year-old male status post microwave ablation of a left renal mass on 01/23/25 complicated by a renal subcapsular/retroperitoneal hemorrhage. A renal angiogram was performed due to suspected active bleed on 01/24/25 and there was no active extravasation or arterial abnormality found. H and H has been on the lower side, has had several transfusions thus far and got another today. His vital signs are stable however he is endorsing left flank pain that has been slowly improving. Physical exam: NAD, RRR, CTABL. L flank and groin site well-healed. No flank tenderness Assessment and Plan: Chinedu is a 54-year-old male status post microwave ablation of a left renal mass on 01/23/25 complicated by a perirenal/retroperitoneal hemorrhage.? Status post 3 units prbc over the last few days. Vital signs and hemoglobin/hematorit stable at this time Continue to trend hemoglobin and hematocrit with PRBC infusions as needed. When stabilized, patient ok for discharge.? Pain is slowly improving, continue oral pain regimen.? Given current patient hemodynamic stability, no imaging needed at this time. Plan will be for follow up imaging in 6-12 weeks to assess for treatment response. Follow up with outpatient urologist and [facility]. Patient seen and evaluated by Daniel Rocha NP. <Rich Ramirez MD - Last Filed: 01/29/25 13:05>
[2025-01-28 20:09] LABS: Glucose, Whole Blood 204 mg/dL (60-115)
[2025-01-29 03:35] VITALS: BP 148/75; PULSE 89; RESP 18; TEMP 37.3; O2SAT 93
[2025-01-29 06:00] VITALS: BMI 38.0
[2025-01-29 07:03] LABS: Hematocrit 27.9 % (42.0-52.0); Hemoglobin 9.7 g/dl (14.0-18.0); Mean Corpuscular HGB Conc 34.8 g/dl (31.0-36.0); Mean Corpuscular Hemoglobin 31.8 pg (27.0-33.0); Mean Corpuscular Volume 91.5 fL (80.0-98.0); NRBC Abs Auto 0.000 X10*3/uL (0.0-0.012); NRBC Pct Auto 0.0 /100WBC (0.0-0.2); Platelet Count 201 X10*3/uL (160-400); Red Blood Count 3.05 X10*6/uL (4.60-5.80); White Blood Count 9.9 X10*3/uL (4.8-10.8)
[2025-01-29 07:14] VITALS: BP 149/76; PULSE 86; RESP 18; TEMP 36.3; O2SAT 94
[2025-01-29 07:14] LABS: Anion Gap 12 (12-20); Blood Urea Nitrogen 19 mg/dL (9-16); Calcium 8.6 mg/dL (8.4-10.2); Carbon Dioxide 26 mmol/L (22-29); Chloride 101 mmol/L (96-108); Creatinine Clr Calc Pharmacy 94.5; Estimated Glomerular Filt Rate 60; Potassium 3.8 mmol/L (3.3-5.1); Sodium 135 mmol/L (135-145)
[2025-01-29 07:25] LABS: Glucose, Whole Blood 120 mg/dL (60-115)
[2025-01-29] MEDS: Clotrimazole 1 % Cream 15 GM TUBE 1 APPL TOPICAL (08:05)
[2025-01-29] MEDS: Lidocaine 4 % Patch ADH..PATCH 2 PATCH TRANSDERMA (08:08)
[2025-01-29] MEDS: Insulin Glargine,Hum.rec.anlog 100 UNIT/ML 10 ML VIAL 30 UNIT SUBCUT (08:09)
--- NOTE | 2025-01-29 11:06 | MHC.CM.PN ---
Second IMM, Pt has been medically cleared for DC, he will go home via private transport, plan is self care.
--- NOTE | 2025-01-29 11:08 | PM.DS ---
DS: Providers Provider Date of Service: 01/29/25 Date of admission: 01/25/25 10:05 Date of discharge: 01/29/25 Primary care physician: BRUCE Sams Consults: 01/23/25 19:02 Consult to Urology Routine Consulting Provider: [facility] Reason for consultation: s/p renal bx Has provider been notified: Yes 01/24/25 10:16 Consult for Sitter Routine Reason for consultation: Fall Has provider been notified: No 01/24/25 11:34 Consult to Infectious Diseases Routine Consulting Provider: [facility] Reason for consultation: pneumonia Has provider been notified: No 01/24/25 13:35 Consult to Nephrology Routine Consulting Provider: [facility] Reason for consultation: [place] , status post renal tumor ablation-subscapular renal hematoma DS: Diagnosis Discharge Diagnosis (1) Hematoma: Status: Acute DS: Summary Hospital Course Hospital Course: from initial hpi: 54 yo male with PMH DMII, HTN, HLD, Obesity, anxiety, constipation, VIT D deficiency is s/p L renal bx with urology that went well with no complications. Urology service asked that pt be admitted for observartion overnight and no labs or imaging would be required (Rich Solis). Pt seen and examined once on third floor, out of PACU. Pt complaining of abdominal discomfort as he needs to move his bowels but can's. Pt has chronic issues with constipation. Patient agreeable to Dulcolax suppository and milk of magnesia. We will also order antiemetic for mild nausea reported. Abdominal exam unremarkable. Biopsy site left flank area is stable with no ecchymosis, swelling or redness. Patient has been able to void since surgery. Patient has also been persistently hypertensive since the procedure. Hydralazine 10 mg IV x1 ordered with q.6 coverage for systolic greater than 160. Patient should be able to resume his lisinopril in the a.m. as renal function has been stable. Reviewed plan of care with nursing and orders will be implemented. 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 Hemodynamics currently stable. hospital course: Patient was admitted for acute blood loss anemia and hypotension due to hematoma due to ablation of left renal tumor was transfused 3 units total and hemoglobin has stabilized. We will follow up with Urology and IR as outpatient. There was concern for pneumonia was treated with Zosyn was seen by infectious disease who recommended completing a 10 day course with doxycycline. For diabetes with hyperglycemia was continued on insulin sliding scale. For hypertension lisinopril held for acute kidney injury will be restarted on discharge. For acute kidney injury improved with hydration. For morbid obesity weight loss encouraged. Patient is feeling better will be discharged home Time Attestation Discharge Coordination Time (in mins): 37 Quality: Safe Use of Opioids Does Pt have an Active Cancer Diagnosis on the Problem List?: No Quality: Stroke Does the patient have a stroke diagnosis?: No Physical Exam Vital Signs: Vital Signs: Last Vital Signs Temp 97.4 F 01/29/25 07:14 Pulse 86 01/29/25 07:14 Resp 18 01/29/25 07:14 BP 149/76 H 01/29/25 07:14 Pulse Ox 94 01/29/25 07:14 O2 Del Method Room Air 01/29/25 07:14 O2 Flow Rate 1 01/28/25 08:00 BMI result Body Mass Index 38.0 Const: General: cooperative, healthy appearing, comfortable and no acute distress Orientation/consciousness: patient oriented x3 HEENT: Face and sinus: Yes normal facial exam Mouth: moist mucous membranes Neck: Neck: Yes normal visual inspection, Yes full ROM and Yes trachea midline Chest: Chest palpation & inspection: normal inspection of the chest Resp: Effort & Inspection: normal respiratory effort, able to speak in complete sentences and no respiratory distress GI: Inspection: Yes normal to inspection Back/Spine/Pelvis: Cervical Spine: normal cervical lordosis Thoracic/Lumbar Spine: thoracic and lumbar spine normal to inspection Skin: General skin exam: no rashes or lesions noted Neuro: General: patient oriented x3, tone normal and moves all extremities Extrem: General: Yes normal to inspection and Yes capillary refill normal DS: Data Data Completed and Pending Labs on day of discharge: Laboratory Results - last 24 hr 01/28/25 01/28/25 01/28/25 11:19 15:24 20:01 WBC RBC Hgb Hct MCV MCH MCHC RDW Plt Count MPV Absolute Nucleated RBC Nucleated RBC % (auto) Sodium Potassium Chloride Carbon Dioxide Anion Gap BUN Creatinine Estim Creat Clear Calc Estimated GFR POC Glucose 215 H 169 H 204 H Random Glucose Calcium 01/29/25 01/29/25 06:55 07:16 WBC 9.9 RBC 3.05 L Hgb 9.7 L Hct 27.9 L MCV 91.5 MCH 31.8 MCHC 34.8 RDW 12.7 Plt Count 201 MPV 9.7 Absolute Nucleated RBC 0.000 Nucleated RBC % (auto) 0.0 Sodium 135 Potassium 3.8 Chloride 101 Carbon Dioxide 26 Anion Gap 12 BUN 19 H Creatinine 1.25 Estim Creat Clear Calc 94.5 Estimated GFR 60 POC Glucose 120 H Random Glucose 132 H Calcium 8.6 Preliminary micro results at discharge 01/24/25 10:34 Blood Culture - Preliminary Blood - Venous No growth after 48 hours. 01/24/25 10:34 Blood Culture - Preliminary Blood - Venous No growth after 48 hours. Discharge Plan Discharge Anticipated Discharge Date/Time: 01/29/25 10:57 Patient Disposition: Home Health Service Discharge Diagnosis: anemia, renal mass, hematoma Referrals: Adam Herbert MD [Physician, Urology] - 1 Week Rich Ramirez MD [Physician, Interventional Radiology] - 1 Week Enrico San FNP-C [Primary Care Provider, Internal Medicine] - 1 Week Discharge Medications: New doxycycline hyclate 100 mg tablet 100 mg PO BID Qty: 10 0RF Continued (DME) lancets [[employer] SureSoft Lancing Dev] 28 gauge misc See Rx Instructions topical QID Qty: 150 11RF Rx Instructions: As directed Test blood glucose 4x per day. (DME) blood-glucose meter [OneTouch Verio Flex meter] Misc See Rx Instructions .Route Qty: 1 0RF Rx Instructions: to test blood glucose 4x/day lisinopril 20 mg tablet 20 mg PO DAILY 30 Days Qty: 90 4RF (DME) lancets 33 gauge misc See Rx Instructions .ROUTE .MEDSUPPLY Qty: 100 11RF Rx Instructions: 4x/day gabapentin 100 mg capsule 100 mg PO BEDTIME Qty: 30 2RF cholecalciferol (vitamin D3) 50 mcg (2,000 unit) capsule 50 mcg PO DAILY 30 Days Qty: 30 4RF sennosides [senna] 8.6 mg tablet 17.2 mg PO BEDTIME PRN (Reason: constipation) Qty: 60 2RF Januvia 100 mg tablet 100 mg PO DAILY Qty: 30 4RF (DME) OneTouch Verio test strips Strip See Rx Instructions Not Applicable .MEDSUPPLY Qty: 150 11RF Rx Instructions: Freestyle lite test strips Test blood glucose 4xper day. #150 strips per 30days atorvastatin 40 mg tablet 40 mg PO BEDTIME pioglitazone 45 mg tablet 45 mg PO BEDTIME Jardiance 25 mg tablet 25 mg PO DAILY polyethylene glycol 3350 [Miralax] 17 gram powder in packet 17 g PO DAILY 90 Days Qty: 100 3RF docusate sodium [Colace] 100 mg capsule 100 mg PO BID Qty: 60 3RF albuterol sulfate 90 mcg/actuation HFA aerosol inhaler 2 puff inhalation Q4-6H PRN (Reason: shortness of breath or wheezing) Qty: 8.5 0RF Discontinued naproxen 500 mg tablet 500 mg PO BID Qty: 90 8RF Discharge Orders: Discharge Order (Routine); Ordered 01/29/25 Ordered By: Hamilton Guillen Diet: Advance to usual diet Activity on Discharge: As tolerated Stand Alone Forms: Patient Portal Discharge page Print Language: Indonesian Care Plan Goals: recovery Health Concerns: hematoma Plan of Treatment: follow up with urlology, IR, 5 more days doxy Assessment: see above Patient Instructions: Blood Transfusion Discharge Instructions
[2025-01-29 11:27] LABS: Glucose, Whole Blood 158 mg/dL (60-115)
== END 2025-01-29 14:03 | disposition home or self-care (01) | DRG 981 ==
LOC: HO.S3 20:24 → HO.IMC 01-24 12:42 → HO.ICU 01-24 14:39 → HO.IMC 01-25 16:58
PROVIDERS: Internal Medicine; Internal Medicine Pulmonary Disease; Nurse Practitioner Family; Radiology Diagnostic Radiology; Student in an Organized Health Care Education/Training Program; Urology; Admitting Provider Student in an Organized Health Care Education/Training Program; Visit Provider Internal Medicine
PROC: 0T513ZZ Destruction of Left Kidney, Percutaneous Approach (ICD-10-PCS; principal; 2025-01-23 15:30)
PROC: B417ZZZ Fluoroscopy of Left Renal Artery (ICD-10-PCS; principal; 2025-01-24 15:00)
DX: N99.840 Postprocedural hematoma of a genitourinary system organ or structure following a genitourinary system procedure (principal); J18.9 Pneumonia, unspecified organism; N17.0 Acute kidney failure with tubular necrosis; R57.8 Other shock; D62 Acute posthemorrhagic anemia; J98.11 Atelectasis; N28.89 Other specified disorders of kidney and ureter; K59.09 Other constipation; I10 Essential (primary) hypertension; E66.01 Morbid (severe) obesity due to excess calories; Z71.3 Dietary counseling and surveillance; E86.0 Dehydration; Z68.38 Body mass index [BMI] 38.0-38.9, adult; E11.65 Type 2 diabetes mellitus with hyperglycemia; E11.42 Type 2 diabetes mellitus with diabetic polyneuropathy; Z79.899 Other long term (current) drug therapy
CPT/HCPCS: 36415; 37244; 50592; 71045; 74150; 77013; 80048; 80053; 81001; 82040; 82550; 82803; 82947; 83036; 83605; 83735; 84100; 84443; 84484; 85014; 85018; 85025; 85027; 85610; 85730; 86850; 86900; 86901; 86923; 87040; 93005; 94640; C1729; J0131; J0360; J0690; J1171; J1271; J1644; J2003; J2250; J2310; J2405; J2543; J2704; J3010; J7120; P9016; Q9967

== ENCOUNTER → 2025-01-23 18:52 | Outpatient (BNV) | payer OTHER, SELFPAY | PROVIDERS: Admitting Provider Student in an Organized Health Care Education/Training Program; Visit Provider Internal Medicine | DX: E11.65 Type 2 diabetes mellitus with hyperglycemia (principal); R10.9 Unspecified abdominal pain; N28.89 Other specified disorders of kidney and ureter | CPT/HCPCS: 99232 ==

== ENCOUNTER → 2025-01-23 18:52 | Outpatient (BNV) | payer OTHER, SELFPAY | PROVIDERS: Admitting Provider Student in an Organized Health Care Education/Training Program; Visit Provider Nurse Practitioner Family | DX: T14.8XXA Other injury of unspecified body region, initial encounter (principal) | CPT/HCPCS: 99232; 99499 ==

== ENCOUNTER → 2025-01-23 18:52 | Outpatient (BNV) | payer OTHER, SELFPAY | PROVIDERS: Admitting Provider Student in an Organized Health Care Education/Training Program; Visit Provider Internal Medicine Pulmonary Disease | DX: E11.65 Type 2 diabetes mellitus with hyperglycemia (principal); N28.89 Other specified disorders of kidney and ureter; K68.3 Retroperitoneal hematoma | CPT/HCPCS: 99233 ==

== ENCOUNTER → 2025-01-24 14:11 | Outpatient (BNV) | payer OTHER, SELFPAY | PROVIDERS: Admitting Provider Student in an Organized Health Care Education/Training Program; Visit Provider Internal Medicine | DX: R00.0 Tachycardia, unspecified (principal) | CPT/HCPCS: 93010 ==

== ENCOUNTER 2025-01-25 10:05 | Outpatient (BNV) | payer OTHER, SELFPAY | END 2025-01-25 19:26 | PROVIDERS: Admitting Provider Student in an Organized Health Care Education/Training Program; Visit Provider Internal Medicine | DX: R00.0 Tachycardia, unspecified (principal) | CPT/HCPCS: 93010 ==

== ENCOUNTER → 2025-01-25 10:05 | Outpatient (BNV) | payer OTHER, SELFPAY | PROVIDERS: Admitting Provider Student in an Organized Health Care Education/Training Program; Visit Provider Nurse Practitioner Family | DX: N17.9 Acute kidney failure, unspecified (principal) | CPT/HCPCS: 99221 ==

== ENCOUNTER → 2025-01-25 10:05 | Outpatient (BNV) | payer OTHER, SELFPAY | PROVIDERS: Admitting Provider Student in an Organized Health Care Education/Training Program; Visit Provider Urology | DX: N28.89 Other specified disorders of kidney and ureter (principal) | CPT/HCPCS: 99231; 99232 ==

== ENCOUNTER 2025-02-05 10:32 | Outpatient (AMB) | payer OTHER, SELFPAY ==
--- NOTE | 2025-02-05 10:32 | MHC.OFFVIS ---
Intake Visit Reasons: CT Biopsy Cryo ablation f/u Intake Note: Patient is present for CT BIOPSY CRYO ABLATION F/U Urology Medication:NONE Antibiotic Allergy:NONE Blood Thinner:NONE Preparation Room Manager Required: No Allergies metformin Allergy (Unknown, Verified 02/05/25 10:33) Unknown HPI Comments Details: Chinedu is a pleasant male. He is a patient of Dr. San. 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 The lesion demonstrates mild wall thickening measuring 2-3 mm in thickness with diffuse wall enhancement. In addition, there is an 11 x 7 mm enhancing mural nodule at the superior portion of the lesion. There is no fat within the lesion. This represents a Bosniak IV mass Plan CT-guided cryotherapy [facility] Medical History Numbness Seizures Back pain Bronchitis Hyperlipidemia Diabetes type 2, uncontrolled Diabetic neuropathy associated with type 2 diabetes mellitus Hypertension Vitamin D deficiency Surgical History History of tonsillectomy Family History Father Lung cancer Mother Pacemaker Maternal Grandmother Diabetes Brother CAD (coronary artery disease) Sister Hypertension Sister Myocardial infarction Sister Hearing problem Social History Housing: Apartment Are you a primary home care specialist to a significant other at home: No Do you presently have visiting nurse or other home services: No Alcohol intake: never Patient Tobacco Use Status: Never used Tobacco Tobacco use type: Cigarette e-Cigarette/Vaping Use: Never Used Second Hand Smoke Exposure: No service: No Current occupational status: unemployed and disabled Cognitive needs: No Hearing needs: No Vision needs: No Review of Systems Const All systems reviewed & are unremarkable except as noted in HPI and below Reports no additional complaints Resp Reports no additional complaints GI Reports no additional complaints Reports as per HPI Musc Reports no additional complaints Physical Exam Telemedicine evaluation Appropriate responses Regular breathing rate and rhythm HEENT Head: Yes normal to inspection Ears: hearing grossly normal bilaterally Eyes General: appearance normal, both eyes and all related structures Neck Neck: Yes normal visual inspection Chest Chest palpation & inspection: normal inspection of the chest Resp Effort & Inspection: normal respiratory effort and able to speak in complete sentences Telehealth Telehealth Telehealth Platform: Telephone Location of provider rendering services: practice address Location of patient: address on file Patient Identification confirmed using: Name, : Yes Telehealth method: voice only Patient verbally consented to treatment: Yes Patient verbally consented to billing insurance company: Yes Patient informed of any privacy concerns related to visit: Yes Assessment & Plan Assessment & Plan (1) Complex renal cyst: Code(s): N28.1 - Cyst of kidney, acquired Category: Medical Plan Six-month follow-up renal CT Orders: Orders CT abdomen wo/w IV con 6 Months C64.9 - Malignant neoplasm of unspecified kidney, except renal pelvis, N28.1 - Cyst of kidney, acquired Patient Instructions: This note is constructed using voice recognition software. While every effort has been made to ensure accuracy clinical medical transcriptionist errors may have been included. Imaging studies, laboratory and physical exam results were discussed and reviewed in detail. No major barriers to patient understanding were identified. An opportunity to ask questions regarding the treatment plan was provided. All questions were answered. The patient expressed understanding and agreement with the above treatment plan. The patient is aware they should contact our office by phone for worsening of their current condition or the appearance of new urologic symptoms. Compliance is encouraged with any medications and followup testing that is ordered. It is a privilege to participate in the urologic care of your patient. If you have any questions or concerns regarding treatment for the above conditions, or other urologic issues, please do not hesitate to contact me. The office telephone contact is [phone]. Sincerely, Dr Adam Herbert MD, [facility] - Urology Compassionate Specialist Care for the Genitourinary System Coding Level of Care Code Tele Est Pt Level 3 (01787) Diagnoses Complex renal cyst N28.1
--- OUTSIDE RECORDS SUMMARY | 2025-02-05 11:28 | XMS_ITS | Clinical Summary ---
Author Organization [employer] Address [address] [place] [address] [address] [place] [address] Care Team Providers Care Skein Bander Name Role Phone Unavailable Primary Care Provider [...] Td or Tdap) 12/16/2024 12/16/2014 Influenza Vaccine (#1) 2025 , 04/27/2022, 04/20/2021, Additional history exists RSV Patients [...] Most Recently Relevant to Health Maintenance Insurance [facility]
--- OUTSIDE RECORDS SUMMARY | 2025-02-05 11:28 | XMS_ITS | Patient Health Record ---
Author Organization [facility] Address [address] [place] [address] Care Team Providers Care Tractor Trailer Driver Name Role Phone Tony Martinez Unavailable [phone] Reason For Referral No Information Plan Of Treatment No Information
--- OUTSIDE RECORDS SUMMARY | 2025-02-05 11:28 | XMS_ITS | Clinical Summary ---
Author Organization [facility] Address [id number] [place] [id number] Care Team Providers Care Dispatch Machine Runner Name Role Phone Panda Carreon MD Primary Care Provider [phone] Allergies Active Allergy Reactions Criticality Noted Date [...] Comments Diabetes (CMS/HCC V24, CMS/HCC V28) DX:Diabetes ([facility]) Asthma DX:Asthma Joint problem DX:Joint problem Social [...] PM EDT Office Visit Orthopedic Surgery - [place] [address] [address] Bony Mascorro, DPM [address] [address] Health Maintenance Due Date Last Done Comments DTaP,Tdap,and Td Vaccines (1 - Tdap) 1988 Hepatitis B Vaccines (1 of 3 - 19+ 3-dose series) 1988 Pneumococcal Vaccine: 50+ Ye ars (1 of 2 - PCV) 1988 Pneumococcal Vaccine: Pediat rics (0 to 5 Years) and At-Risk Patients (6 to 49 Years) (1 of 2 - PCV) 1988 Zoster Vaccines (1 of 2) 2019 Cholesterol Screening (Lipid Panel) 07/03/2022 Colorectal Cancer Screening: Colonoscopy 07/03/2022 Depression Screening 07/03/2022 HIV Screening 07/03/2022 Hepatitis C Screening 07/03/2022 Social Influencers of Health Screening 07/03/2022 COVID-19 Vaccine (1 - 2023-2 5 season) 2024 Influenza Vaccine (#1) 2025 HIB Vaccines Aged Out No longer [...] age to complete this topic Care Teams Dispatch Machine Runner Relationship Specialty Start Date End Date Panda Carreon MD [address] [place] [address] [address] [place] [address] PCP - General Internal Medicine 04/30/20
== END 2025-02-05 16:21 | disposition home or self-care (01) ==
LOC: HO.HUSH 10:32
PROVIDERS: Visit Provider Urology
DX: N28.1 Cyst of kidney, acquired (principal)
CPT/HCPCS: 99213

== ENCOUNTER 2025-04-07 10:29 | Outpatient (AMB) | payer OTHER, SELFPAY ==
[2025-04-07 10:33] VITALS: BP 98/58; PULSE 121; RESP 18; TEMP 37.6; O2SAT 95; BMI 32.1
--- NOTE | 2025-04-07 10:33 | MHC.PC.OV ---
Vital Signs 04/07/25 10:33 04/07/25 11:05 Height 6 ft 1 in Weight 243 lb 2 oz BMI 32.1 BP 98/58 L 122/64 Blood Pressure Location Lt brachial Lt brachial Position Sitting Sitting Respiration 18 Pulse 121 H Pulse Source Pulse Oximeter Temp 99.6 F Temp Source Oral Pulse Oximetry (%) 95 Oxygen Delivery Method Room Air Intake Visit Reasons: dm/htn/hld Transporter Radiology Required: No Accompanied by: Self / Same As Patient Allergies metformin Allergy (Unknown, Verified 04/07/25 10:34) Unknown Medication List - Last Reconciled 04/07/25 by BRUCE Sams albuterol sulfate 90 mcg/actuation 2 puffs inhalation Q4-6H PRN NS atorvastatin 40 mg PO DAILY benzonatate 200 mg PO BID PRN blood sugar diagnostic (Yulexuch Verio test strips) Freestyle lite test strips Test blood glucose 4xper day. #150 strips per 30days blood-glucose meter (EcoarkTouch Verio Flex Meter) to test blood glucose 4x/day cholecalciferol (vitamin D3) 50 mcg PO DAILY 30 days empagliflozin (Jardiance) 25 mg PO DAILY gabapentin 100 mg PO BEDTIME lancets (Yulexuch SureSoft Lancing Devices) As directed Test blood glucose 4x per day. lancets 4x/day lisinopril 20 mg PO DAILY 30 days pioglitazone 45 mg PO BEDTIME polyethylene glycol 3350 (Miralax) 17 grams PO DAILY 90 days sennosides (senna) 17.2 mg (2 x 8.6 mg) PO BEDTIME PRN sitagliptin phosphate (Januvia) 100 mg PO DAILY Tobacco use date assessed: 04/07/25 Dental Screening Dental Screen Date: 04/07/25 Did you have a dental visit in the last 12 months?: No Did you have a dental problem in the last 6 months where you did not have access to dental care?: No Was dental information given to patient?: Patient has dentist HPI dm/htn/hld HPI Details The patient is a 55-year-old male presenting for follow appt for chronic condition. He is here with concerns about elevated blood sugar levels and persistent cough. The patient reports experiencing elevated blood sugar levels, with a recent measurement of 280 mg/dL after consuming a salad and water. He has a history of hyperglycemia, with an A1c level of 10%, indicating poor glycemic control. The patient is currently on multiple medications for diabetes management, including Jardiance, Januvia, and Actos, but has a known allergy to Metformin, which caused severe gastrointestinal distress in the past. The patient also reports a persistent cough, which he attributes to chronic bronchitis, a condition he has experienced seasonally. He has been using cough drops and cough medicine to manage symptoms, but the cough persists, especially at night, disrupting his sleep. A recent examination revealed an infection, likely contributing to the cough and elevated blood sugar levels. The patient has a history of hypertension and is currently taking atorvastatin and lisinopril as part of his management plan. He has been advised to increase his water intake due to signs of dehydration, which may be exacerbating his current health issues. The patient did not complete his preordered labs follow appt. Reports that he will get this done rafael. [facility] Medical History Numbness Seizures Back pain Bronchitis Hyperlipidemia Diabetes type 2, uncontrolled Diabetic neuropathy associated with type 2 diabetes mellitus Hypertension Vitamin D deficiency Surgical History History of tonsillectomy Family History Father Lung cancer Mother Pacemaker Maternal Grandmother Diabetes Brother CAD (coronary artery disease) Sister Hypertension Sister Myocardial infarction Sister Hearing problem Social History Housing: Apartment Are you a primary care coordination manager to a significant other at home: No Do you presently have visiting nurse or other home services: No Alcohol intake: never Patient Tobacco Use Status: Never used Tobacco Tobacco use type: Cigarette e-Cigarette/Vaping Use: Never Used Second Hand Smoke Exposure: No service: No Current occupational status: unemployed and disabled Cognitive needs: No Hearing needs: No Vision needs: No Questionnaire PHQ-9 Over the last 2 weeks, how often have you been bothered by any of the following problems? 1. Little interest or pleasure in doing things: not at all 2. Feeling down, depressed, or hopeless: not at all 3. Trouble falling or staying asleep, or sleeping too much: not at all 4. Feeling tired or having little energy: several days 5. Poor appetite or overeating: not at all 6. Feeling bad about yourself - or that you are a failure or have let yourself or your family down: not at all 7. Trouble concentrating on things, such as reading the newspaper or watching television: not at all 8. Moving or speaking so slowly that other people could have noticed. Or the opposite - being so fidgety or restless that you have been moving around a lot more than usual: not at all 9. Thoughts that you would be better off or of hurting yourself in some way: not at all Total score: 1 Depression Screening Interpretation: Negative Depression Screening Done: Yes Source: Developed by Drs. Tony Kelly, Maricarmen Ye, Jose Alvares and colleagues, with an educational osiel from [employer]. Thrive Questionnaire Date Thrive assessed: 04/07/25 I am a: Patient What is your living situation today?: I choose not to answer this question Within the past 12 months, did the food you bought not last and you didn't have the money to get more?: Never true Within the past 12 months, did you worry whether your food would run out before you got money to buy more?: Never true Do you have trouble paying for medicines?: No Do you have trouble getting transportation to medical appointments?: Yes Do you have trouble paying your heating and electricity bill?: No Do you have trouble taking care of your child, family member or friend?: No Do you have trouble with day-to-day activities such as bathing, preparing meals, shopping, managing finances, etc.?: No Are you currently unemployed and looking for a job?: I choose not to answer this question Are you interested in more education?: I choose not to answer this question Please select the resources that you would like help with: Transportation Currently or been in a relationship where the following occur: I choose not to answer THRIVE Score: 1 AUDIT C Alcohol Use Questionnaire (AUDIT-C) 1. How often do you have a drink containing alcohol?: Never Total Score: 0 GRICELDA-7 AMB Questionnaire GRICELDA-7 Date GRICELDA - 7 assessed: 04/07/25 Feeling nervous, anxious, or on edge: 0 = Not at all Not being able to stop or control worryin = Nearly every day Worrying too much about different things: 0 = Not at all Trouble relaxin = Not at all Being so restless that it is hard to sit still: 0 = Not at all Becoming easily annoyed or irritable: 0 = Not at all Feeling afraid as if something awful might happen: 0 = Not at all Total GRICELDA-7 score (0-4 normal; 5-9 mild; 10-14 moderate; 15-21 severe): 3 Source: Developed by Drs. Tony Kelly, Maricarmen Ye, Jose Alvares and colleagues, with an educational osiel from [employer]. Review of Systems Const Denies body aches, Denies chills, Denies fever(s), Reports headache(s) (related to coughing) and Denies poor appetite Eyes Reports no additional complaints ENT Denies dysphagia, Denies dizziness, Denies otalgia, Reports headache(s) (related to coughing), Reports nasal congestion, Reports nasal discharge, Denies odynophagia, Reports post nasal drip, Denies sinus pressure and Denies sore throat Card Denies chest pain, Denies syncope, Denies edema, Denies irregular heart rhythm, Denies lightheadedness and Denies dyspnea Resp Reports cough, Reports excessive phlegm production and Denies dyspnea GI Denies abdominal pain, Reports constipation (improved with miralax), Denies dysphagia, Denies diarrhea, Denies nausea, Denies odynophagia and Denies vomiting Reports no additional complaints Musc Reports no additional complaints and Denies abnormal gait Skin/Breast Reports system reviewed and no additional complaints, except as documented Neuro Denies abnormal gait, Denies dizziness, Denies syncope and Reports headache(s) (related to coughing) Psych Reports no additional complaints Physical exam (Primary Care) Vital Signs: Last Vital Signs Temp 99.6 F 04/07/25 10:33 Pulse 121 H 04/07/25 10:33 Resp 18 04/07/25 10:33 BP 122/64 04/07/25 11:05 Pulse Ox 95 04/07/25 10:33 Oxygen Delivery Method Room Air 04/07/25 10:33 BMI result Body Mass Index 32.1 Tobacco/Smoking Status: Tobacco use Status Tobacco use date assessed 04/07/25 04/07/25 10:39 Patient Tobacco Use Status Never used Tobacco 04/07/25 10:39 Tobacco use type Cigarette 04/07/25 10:39 e-Cigarette/Vaping Use Never Used 04/07/25 10:39 PHQ-9: PHQ-9 Score PHQ-9: Total score 1 04/07/25 11:14 Depression Screening Interpretation: Negative Thrive Assessment: Date of Thrive Assessment Date Thrive assessed 04/07/25 04/07/25 10:39 Currently or been in a relationship where the following occur: I choose not to answer Const General: cooperative, healthy appearing, comfortable and no acute distress Orientation/consciousness: patient oriented x3 HENMT Head: Yes normocephalic Ears: TM's normal bilaterally General nose exam: Abnormal mucous membranes and turbinates present boggy bilateral and erythematous bilateral and Nasal discharge present purulent bilateral Throat: Yes posterior oropharynx normal Eyes General: appearance normal, both eyes and all related structures Conjunctivae: conjunctivae normal Neck Neck: Yes full ROM and Yes no lymphadenopathy Resp Effort & Inspection: normal respiratory effort Auscultation: clear to auscultation bilaterally, no crackles, no rales, no rhonchi and no wheezes Cardio Rate: tachycardic Rhythm: regular rhythm Heart sounds: S1 normal heart sound present and S2 normal heart sound present GI Inspection: Yes obesity Palpation (GI): Soft to palpation and nontender Auscultation: normal bowel sounds General: Yes no CVA tenderness Back/Spine/Pelvis Back: no CVA tenderness Skin General skin exam: no rashes or lesions noted Neuro General: patient oriented x3 Gait exam (Neuro): Normal gait present Extrem General: Yes normal to inspection, Yes full ROM and No edema Psych Affect: normal affect Attitude: cooperative Insight: Good insight present (Psych) Judgement: Good judgement present (Psych) Results AMB Hemoglobin A1c AMB Hemoglobin A1c 10 % Last Edit by JO ANN Garrett on 04/07/25 11:14 Results Reviewed Results Reviewed: Laboratory Last Values Hgb A1c (Clinic) 10 % (4.0-6.0) H 04/07/25 11:12 Coding Level of Care Code Est Pt Level 4 (35685) Diagnoses Constipation, unspecified constipation type K59.00 Constipation type: unspecified constipation type Diabetes mellitus with coincident hypertension E11.9; I10 Essential hypertension I10 Hypertension type: essential hypertension Pure hypercholesterolemia E78.00 Hyperlipidemia type: pure hypercholesterolemia Vitamin D deficiency E55.9 Rhinosinusitis J32.9 Class 1 obesity with serious comorbidity and body mass index (BMI) of 32.0 to 32.9 in adult, unspecified obesity type E66.811; Z68.32 Obesity type: unspecified obesity type Obesity classification: adult class 1 (BMI 30 - 34.9) Serious obesity comorbidity presence: with serious comorbidity Body mass index: BMI 32.0-32.9 Time Spent (min) 39 Assessment & Plan Assessment & Plan (1) Constipation: Code(s): K59.00 - Constipation, unspecified Category: Medical Qualifiers: Constipation type: unspecified constipation type Qualified Code(s): K59.00 - Constipation, unspecified Plan: Multifactorial. Sedentary lifestyle, poor fluid and fiber intake. Encourage patient to increase fluid intake in dietary fiber. Discussed with the patient that he could also purchase fiber gummies. In case if he does not want to take the miralax. Patient reports that he has been taking the MiraLax with positive effects. No longer gets constipated. (2) Diabetes mellitus with coincident hypertension: Code(s): E11.9 - Type 2 diabetes mellitus without complications; I10 - Essential (primary) hypertension Category: Medical Plan: No recent labs, a1c done in office 10% was increased from 7.7% Reinforced low sugar/carbohydrate diet and activity as tolerated The patient declines being on insulin. We will order Ozempic for the patient, he is willing to try this once a week. Explained to the patient that once he gets the Ozempic he has to stop taking Januvia 100 mg daily. Until then, he should continue Jardiance 25 mg daily, pioglitazone 45 mg daily, and Januvia 100 mg daily We will have the patient return in 3 weeks for diabetic teaching with nurse navigator (3) Hypertension: Code(s): I10 - Essential (primary) hypertension Category: Medical Qualifiers: Hypertension type: essential hypertension Qualified Code(s): I10 - Essential (primary) hypertension Plan: Blood pressure in office was 122/64 Reinforced low-sodium diet Continue lisinopril 20 mg daily (4) Hyperlipidemia: Code(s): E78.5 - Hyperlipidemia, unspecified Category: Medical Qualifiers: Hyperlipidemia type: pure hypercholesterolemia Qualified Code(s): E78.00 - Pure hypercholesterolemia, unspecified Plan: No recent labs. Encourage patient to get ordered labs done rafael. Continue atorvastatin 40 mg daily (5) Vitamin D deficiency: Code(s): E55.9 - Vitamin D deficiency, unspecified Category: Medical Plan: Continue cholecalciferol 50 mcg daily (6) Rhinosinusitis: Code(s): J32.9 - Chronic sinusitis, unspecified Category: Medical Plan: Patient been having a cough over a month. He had tried multiple OTC medications without any relief. He was also ordered benzonatate without any relief. Patient is noted to have boggy, erythematous turbinates, and moderate amount of purulent drainage in both nasal cavities. Patient reports that he has a history of chronic bronchitis and thinks that is the reason why his coughing. Augmentin 875-125 mg 1 tab b.i.d. times 10 days ordered. Increase fluid intakes. The patient is also running a low-grade fever of 99.6 and noted to be tachycardic. Discussed with the patient that he needs to increase his fluids to avoid being dehydrated. Patient is a follow up with office if symptoms are not improving in 3 days after starting the medication. (7) Obesity: Code(s): E66.9 - Obesity, unspecified Category: Medical Qualifiers: Obesity type: unspecified obesity type Obesity classification: adult class 1 (BMI 30 - 34.9) Serious obesity comorbidity presence: with serious comorbidity Body mass index: BMI 32.0-32.9 Qualified Code(s): E66.811 - Obesity, class 1; Z68.32 - Body mass index [BMI] 32.0-32.9, adult Plan: Reinforced low-calorie diet and increasing activity to aid in losing weight Orders: Orders AMB Hemoglobin A1c Today Z13.9 - Encounter for screening, unspecified Medications: New semaglutide (Ozempic) for 4 weeks 0.25 mg (0.368 mL) subcut QWEEK 3 mL 3RF amoxicillin-pot clavulanate 875-125 mg 1 tab PO BID 10 tabs 0RF fluticasone propionate 50 mcg/actuation administer into each nostril 1 spray intranasal BID 16 grams 3RF
[2025-04-07 11:05] VITALS: BP 122/64
--- OUTSIDE RECORDS SUMMARY | 2025-04-07 12:40 | XMS_ITS | Encounter Summary ---
Author Organization [employer] Address [address] [place] [address] Care Team Providers Care Spiral Spring Winder Name Role Phone Unavailable Primary Care Provider Unavailabl e Encounter Details Date Type Department Care Team ([facility] st Contact Info) Description 06/12/2023 Abstract [facility] ADULT D[facility]AL [address] [place] [address] Deneen Dobson, DDS [address] [place] [address] Social History Tobacco Use Types Packs/Day Years [...]
--- OUTSIDE RECORDS SUMMARY | 2025-04-07 12:40 | XMS_ITS | Encounter Summary ---
Author Organization [employer] Address [address] [facility] [address] [place] [address] Care Team Providers Care Machine Adjuster Leader Case Trim Name Role Phone Unavailable Primary Care Provider Unavailabl e Encounter Details Date Type Department Care Team (Latest Contact Info) Description 08/21/2019 Abstract [facility] CONVERSIONS Dental, Provider, DDS Social [...]
--- OUTSIDE RECORDS SUMMARY | 2025-04-07 12:40 | XMS_ITS | Encounter Summary ---
Author Organization [employer] Address [address] [place] [address] [address] [place] [address] Care Team Providers Care Team Driver Name Role Phone Unavailable Primary Care Provider Unavailabl e Encounter Details Date Type Department Care Team (Latest Contact Info) Description 04/22/2022 Abstract [facility] CONVERSIONS Dental, Provider, DDS Social History [...]
--- OUTSIDE RECORDS SUMMARY | 2025-04-07 12:40 | XMS_ITS | Encounter Summary ---
Author Organization [employer] Address [address] [place] [address] [address] [place] [address] Care Team Providers Care Gallery Manager Name Role Phone Unavailable Primary Care Provider Unavailabl e Encounter Details Date Type Department Care Team (Latest Contact Info) Description 09/23/2020 Abstract [facility] CONVERSIONS Dental, Provider, DDS Social [...]
--- OUTSIDE RECORDS SUMMARY | 2025-04-07 12:40 | XMS_ITS | Clinical Summary ---
Author Organization [employer] Address [address] [place] [address] [address] [place] [address] Care Team Providers Care Assembly Machine Offbearer Name Role Phone Unavailable Primary Care Provider [...] Dental X-Ray: Full Mouth 11/01/2023 10/30/2020, 08/01 Tobacco Screening 05/11/2024 05/11/2023 DTaP/Tdap/Td Vaccines (2 - Td or Tdap) 12/16/2024 12/16/2014 COVID-19 Vaccine (4 - 2024- season) 2025 05/24/2022, 06/22/2021, 11/04/2020 Influenza Vaccine (#1) 2025 , 04/27/2022, 04/20/2021, [...] Most Recently Relevant to Health Maintenance Insurance [facility] [facility]
--- OUTSIDE RECORDS SUMMARY | 2025-04-07 12:40 | XMS_ITS | Patient Health Record ---
Author Organization [facility] Address [address] [place] [address] Care Team Providers Care Health Evaluator Name Role Phone Tony Martinez Unavailable [phone] Reason For Referral No Information Plan Of Treatment No Information
--- OUTSIDE RECORDS SUMMARY | 2025-04-07 12:40 | XMS_ITS | Encounter Summary ---
Author Organization [employer] Address [address] [facility] [address] [place] [address] Care Team Providers Care Svp Business Development Name Role Phone Unavailable Primary Care Provider Unavailabl e Reason for Visit * Reason Onset Date Comments Appointment 09/29/2022 Encounter Details Date Type Department Care Team (Late st Contact Info) Description 09/29/2022 Telephone [facility] ADULT DENTAL [address] [place] [address] Kathie Richards DDS Appointment Social History Tobacco [...]
== END 2025-04-07 11:27 | disposition home or self-care (01) ==
LOC: HO.HMCH 10:30
DX: K59.00 Constipation, unspecified (principal); E11.9 Type 2 diabetes mellitus without complications; I10 Essential (primary) hypertension; E78.00 Pure hypercholesterolemia, unspecified; E55.9 Vitamin D deficiency, unspecified; J32.9 Chronic sinusitis, unspecified; E66.811 Obesity, class 1; Z68.32 Body mass index [BMI] 32.0-32.9, adult; Z13.9 Encounter for screening, unspecified

== ENCOUNTER → 2025-04-07 10:29 | Outpatient (BNVA) | payer OTHER, SELFPAY | DX: R05.3 Chronic cough (principal); J42 Unspecified chronic bronchitis; I10 Essential (primary) hypertension; K59.00 Constipation, unspecified; E11.9 Type 2 diabetes mellitus without complications; E78.00 Pure hypercholesterolemia, unspecified; E55.9 Vitamin D deficiency, unspecified; J32.9 Chronic sinusitis, unspecified; E66.811 Obesity, class 1; Z68.32 Body mass index [BMI] 32.0-32.9, adult | CPT/HCPCS: 83036; 96127; 99212 ==

== ENCOUNTER 2025-04-18 13:47 | Outpatient (AMB) | payer OTHER, SELFPAY ==
[2025-04-18 13:51] VITALS: BP 110/68; PULSE 115; RESP 18; TEMP 36.4; O2SAT 96; BMI 32.1
--- NOTE | 2025-04-18 13:51 | MHC.PC.OV ---
Vital Signs 04/18/25 13:51 Height 6 ft 1 in Weight 243 lb BMI 32.1 BP 110/68 Blood Pressure Location Lt brachial Position Sitting Respiration 18 Pulse 115 H Pulse Source Pulse Oximeter Temp 97.5 F Temp Source Temporal Artery Scan Pulse Oximetry (%) 96 Oxygen Delivery Method Room Air Intake Visit Reasons: unresolved dry cough Breastfeeding Peer Counselor Required: No Accompanied by: Self / Same As Patient Allergies metformin Allergy (Unknown, Verified 04/18/25 14:09) Unknown Medication List - Last Reconciled 04/18/25 by BRUCE Sams albuterol sulfate 90 mcg/actuation 2 puffs inhalation Q4-6H PRN NS amoxicillin-pot clavulanate 875-125 mg 1 tab PO BID atorvastatin 40 mg PO DAILY benzonatate 200 mg PO BID PRN blood sugar diagnostic ([employer] Verio test strips) Freestyle lite test strips Test blood glucose 4xper day. #150 strips per 30days blood-glucose meter (RosumTouch Verio Flex Meter) to test blood glucose 4x/day cholecalciferol (vitamin D3) 50 mcg PO DAILY 30 days empagliflozin (Jardiance) 25 mg PO DAILY fluticasone propionate 50 mcg/actuation 1 spray intranasal BID gabapentin 100 mg PO BEDTIME lancets ([employer] Lancing Devices) As directed Test blood glucose 4x per day. lancets 4x/day lisinopril 20 mg PO DAILY 30 days pioglitazone 45 mg PO BEDTIME polyethylene glycol 3350 (Miralax) 17 grams PO DAILY 90 days semaglutide (Ozempic) 0.25 mg (0.368 mL) subcut QWEEK sennosides (senna) 17.2 mg (2 x 8.6 mg) PO BEDTIME PRN sitagliptin phosphate (Januvia) 100 mg PO DAILY Tobacco use date assessed: 04/18/25 Dental Screening Dental Screen Date: 04/18/25 Did you have a dental visit in the last 12 months?: No Did you have a dental problem in the last 6 months where you did not have access to dental care?: No Was dental information given to patient?: No HPI unresolved dry cough HPI Details The patient has been experiencing a chronic cough that disrupts his sleep, waking him up frequently at night. He suspects allergies might be contributing to his symptoms, as he also reports nasal congestion and occasional shortness of breath, which he tries to alleviate by opening a window for fresh air. He has been using inhalers and nasal sprays regularly, with one spray in each nostril at breakfast and another at supper. The patient was treated with Augmentin on his previous visit. We will send the patient for chest x-ray to further evaluate. Respiratory panel was also ordered. Patient also complains about his blood sugar continues to be elevated. He was recently started on Ozempic and had taken the 1st dose on last Monday. The patient reports a blood sugar level of 259 mg/dL despite drinking three bottles of water daily. He has recently started a new medication regimen, taking it once a week on Mondays, which he began last Monday. His dietary intake includes small portions of Lean Cuisine meals and occasional Kazakh food, with breakfast typically consisting of egg burritos and lunch of Caesar salad. [facility] Medical History Numbness Seizures Back pain Bronchitis Hyperlipidemia Diabetes type 2, uncontrolled Diabetic neuropathy associated with type 2 diabetes mellitus Hypertension Vitamin D deficiency Surgical History History of tonsillectomy Family History Father Lung cancer Mother Pacemaker Maternal Grandmother Diabetes Brother CAD (coronary artery disease) Sister Hypertension Sister Myocardial infarction Sister Hearing problem Social History Housing: Apartment Are you a primary hearing care practitioner to a significant other at home: No Do you presently have visiting nurse or other home services: No Alcohol intake: never Patient Tobacco Use Status: Never used Tobacco Tobacco use type: Cigarette e-Cigarette/Vaping Use: Never Used Second Hand Smoke Exposure: No service: No Current occupational status: unemployed and disabled Cognitive needs: No Hearing needs: No Vision needs: No Questionnaire Thrive Questionnaire Date Thrive assessed: 04/07/25 I am a: Patient What is your living situation today?: I choose not to answer this question Within the past 12 months, did the food you bought not last and you didn't have the money to get more?: Never true Within the past 12 months, did you worry whether your food would run out before you got money to buy more?: Never true Do you have trouble paying for medicines?: No Do you have trouble getting transportation to medical appointments?: Yes Do you have trouble paying your heating and electricity bill?: No Do you have trouble taking care of your child, family member or friend?: No Do you have trouble with day-to-day activities such as bathing, preparing meals, shopping, managing finances, etc.?: No Are you currently unemployed and looking for a job?: I choose not to answer this question Are you interested in more education?: I choose not to answer this question Please select the resources that you would like help with: Transportation Currently or been in a relationship where the following occur: I choose not to answer THRIVE Score: 1 GRICELDA-7 AMB Questionnaire GRICELDA-7 Date GRICELDA - 7 assessed: 04/07/25 Source: Developed by Drs. Tony Kelly, Maricarmen Ye, Jose Alvares and colleagues, with an educational osiel from [employer]. Review of Systems Const Denies body aches, Denies chills, Reports difficulty sleeping, Denies fever(s), Denies headache(s) and Denies poor appetite Eyes Reports no additional complaints ENT Denies dysphagia, Denies dizziness, Denies headache(s) and Denies odynophagia Card Denies chest pain, Denies syncope, Denies edema, Denies irregular heart rhythm, Denies lightheadedness, Denies dyspnea and Reports dyspnea on exertion Resp Reports cough (aggressive), Denies dyspnea and Reports dyspnea on exertion GI Denies abdominal pain, Denies constipation, Denies dysphagia, Denies diarrhea, Denies nausea, Denies odynophagia and Denies vomiting Reports no additional complaints Musc Reports no additional complaints and Denies abnormal gait Skin/Breast Reports system reviewed and no additional complaints, except as documented Neuro Denies abnormal gait, Denies dizziness, Denies syncope and Denies headache(s) Psych Reports no additional complaints Physical exam (Primary Care) Vital Signs: Last Vital Signs Temp 97.5 F 04/18/25 13:51 Pulse 115 H 04/18/25 13:51 Resp 18 04/18/25 13:51 BP 110/68 04/18/25 13:51 Pulse Ox 96 04/18/25 13:51 Oxygen Delivery Method Room Air 04/18/25 13:51 BMI result Body Mass Index 32.1 Tobacco/Smoking Status: Tobacco use Status Tobacco use date assessed 04/18/25 04/18/25 14:00 Patient Tobacco Use Status Never used Tobacco 04/18/25 14:00 Tobacco use type Cigarette 04/18/25 14:00 e-Cigarette/Vaping Use Never Used 04/18/25 14:00 Thrive Assessment: Date of Thrive Assessment Date Thrive assessed 04/07/25 04/18/25 14:00 Currently or been in a relationship where the following occur: I choose not to answer Const General: cooperative, healthy appearing, comfortable and no acute distress Orientation/consciousness: patient oriented x3 HENMT Head: Yes normocephalic Ears: hearing grossly normal bilaterally General nose exam: Abnormal mucous membranes and turbinates present erythematous bilateral Eyes General: appearance normal, both eyes and all related structures Conjunctivae: conjunctivae normal Neck Neck: Yes full ROM and Yes no lymphadenopathy Resp Effort & Inspection: normal respiratory effort Auscultation: clear to auscultation bilaterally, no crackles, no rales, no rhonchi and no wheezes Cardio Rate: regular rate Rhythm: regular rhythm Heart sounds: S1 normal heart sound present and S2 normal heart sound present Skin General skin exam: no rashes or lesions noted Neuro General: patient oriented x3 Gait exam (Neuro): Normal gait present Extrem General: Yes normal to inspection, Yes full ROM and No edema Psych Affect: normal affect Attitude: cooperative Insight: Good insight present (Psych) Judgement: Good judgement present (Psych) Coding Level of Care Code Est Pt Level 3 (76971) Diagnoses Chronic cough R05.3 SOB (shortness of breath) R06.02 Nasal congestion R09.81 Time Spent (min) 35 Assessment & Plan Assessment & Plan (1) Chronic cough: Code(s): R05.3 - Chronic cough Category: Medical Plan: A chest x-ray is recommended to further investigate the cause of the chronic cough. The patient is prescribed guaifenesin with codeine to help manage the cough and improve sleep quality. The patient reports that he has an history of chronic bronchitis. Doxycycline 100 mg b.i.d. times 7 days ordered to rule out atypical infections. We will have the patient return in 2 weeks for re-evaluation (2) SOB (shortness of breath): Code(s): R06.02 - Shortness of breath Category: Medical Plan: The patient is encouraged to keep windows open for fresh air when possible to alleviate symptoms. Continue albuterol sulfate 90 mcg/actuation 2 puffs inhalation Q 4-6 H p.r.n. (3) Nasal congestion: Code(s): R09.81 - Nasal congestion Category: Medical Plan: The patient is advised to continue using nasal sprays as previously instructed, with one spray in each nostril 2 times a day. Encouraged adequate fluid hydration and avoid known irritants. Orders: Orders SARS-CoV2/FLU/RSV 04/18/25 R09.89 - Other specified symptoms and signs involving the circulatory and respiratory systems XR chest 2V 04/18/25 R05.9 - Cough, unspecified, R06.02 - Shortness of breath Medications: New doxycycline monohydrate 100 mg PO BID 14 tabs 0RF 7 days codeine-guaifenesin 10-100 mg/5 mL 10 mL PO Q4-6H PRN 120 mL 0RF cough
--- OUTSIDE RECORDS SUMMARY | 2025-04-18 13:55 | XMS_ITS | Encounter Summary ---
Author Organization [employer] Address [address] [facility] [address] [place] [address] Care Team Providers Care Spray Machine Operator Name Role Phone Unavailable Primary Care Provider Unavailabl e Encounter Details Date Type Department Care Team ([facility] st Contact Info) Description 06/12/2023 Abstract [facility] [address] [place] [address] Deneen Dobson, DDS [address] [place] [address] Social History Tobacco Use Types Packs/Day Years [...]
--- OUTSIDE RECORDS SUMMARY | 2025-04-18 13:55 | XMS_ITS | Encounter Summary ---
Author Organization [employer] Address [address] [place] [address] [address] [place] [address] Care Team Providers Care Adjunct Faculty For Medical Terminology Name Role Phone Unavailable Primary Care Provider Unavailabl e Encounter Details Date Type Department Care Team (Latest Contact Info) Description 09/23/2020 Abstract [facility] CONVERSIONS Dental, Provider, DDS Social History [...]
--- OUTSIDE RECORDS SUMMARY | 2025-04-18 13:55 | XMS_ITS | Clinical Summary ---
Author Organization [employer] Address [address] [place] [address] [address] [place] [address] Care Team Providers Care Butter Production Supervisor Name Role Phone Unavailable Primary Care Provider [...] Health Maintenance Insurance [facility]
--- OUTSIDE RECORDS SUMMARY | 2025-04-18 13:55 | XMS_ITS | Encounter Summary ---
Author Organization [employer] Address [address] [place] [address] [address] [place] [address] Care Team Providers Care Golf Ball Cover Treater Name Role Phone Unavailable Primary Care Provider Unavailabl e Encounter Details Date Type Department Care Team (Latest Contact Info) Description 04/22/2022 Abstract [facility] CONVERSIONS Dental, Provider, DDS Social [...]
--- OUTSIDE RECORDS SUMMARY | 2025-04-18 13:55 | XMS_ITS | Encounter Summary ---
Author Organization [employer] Address [address] [facility] [address] [place] [address] Care Team Providers Care Automated Weaver Name Role Phone Unavailable Primary Care Provider Unavailabl e Reason for Visit * Reason Onset Date Comments Appointment 09/29/2022 Encounter Details Date Type Department Care Team (Late st Contact Info) Description 09/29/[address] [facility] [address] [place] [address] Kathie Richards DDS Appointment Social History Tobacco [...]
--- OUTSIDE RECORDS SUMMARY | 2025-04-18 13:55 | XMS_ITS | Encounter Summary ---
Author Organization [employer] Address [address] [facility] [address] [place] [address] Care Team Providers Care Verification Manager Name Role Phone Unavailable Primary Care Provider Unavailabl e Encounter Details Date Type Department Care Team (Latest Contact Info) Description 08/21/2019 Abstract [facility] CONVERSIONS Dental, Provider, DDS Social History [...]
== END 2025-04-18 14:37 | disposition home or self-care (01) ==
LOC: HO.HMCH 13:48
DX: R05.3 Chronic cough (principal); R06.02 Shortness of breath; R09.81 Nasal congestion

== ENCOUNTER 2025-04-18 13:47 | Outpatient (REF) | payer OTHER, SELFPAY ==
--- NOTE | ~2025-04-18 | XR_ITS ---
EXAMINATION: XR CHEST 2 VIEWS HISTORY: R05.9 - Cough, unspecified COMPARISON: Comparison is made with the prior examination dated 01/24/2025. FINDINGS: PA and lateral views of the chest are submitted. The lungs are expanded and clear. There is no pleural effusion, pneumothorax, or pulmonary vascular congestion. The heart is normal in size. The bones are intact. XR/XR chest 2V IMPRESSION: No acute cardiopulmonary abnormality. Electronically signed by: Tony Ramos MD 04/18/2025 03:09 PM EDT
[2025-04-18 15:34] LABS: Resp Syncy Virus RNA Qual PCR NEGATIVE (Negative); SARS COV2 PCR INHOUSE NEGATIVE (Negative)
== END 2025-04-18 13:48 | disposition home or self-care (01) ==
LOC: HO.XRAY 13:47
DX: R05.3 Chronic cough (principal); R09.89 Other specified symptoms and signs involving the circulatory and respiratory systems; R06.02 Shortness of breath
CPT/HCPCS: 71046; 87637; 99212

== ENCOUNTER → 2025-04-18 14:55 | Outpatient (BNV) | payer OTHER, SELFPAY | PROVIDERS: Visit Provider Radiology Diagnostic Radiology | DX: R05.9 Cough, unspecified (principal) | CPT/HCPCS: 71046 ==

== ENCOUNTER 2025-04-26 11:27 | Emergency (ER) | payer OTHER, SELFPAY ==
[2025-04-26 11:29] VITALS: BP 159/70; PULSE 100; RESP 16; TEMP 36.2; O2SAT 96; BMI 31.6
--- NOTE | 2025-04-26 11:31 | ED_ITS ---
HPI - General Adult General Chief complaint: Skin/Abscess/Foreign Body Stated complaint: rash Time Seen by Provider: 04/26/25 11:30 Source: patient, RN notes reviewed and old records reviewed Mode of arrival: ambulatory Limitations: no limitations History of Present Illness ED Provider: Dheeraj CLIFFORD narrative: Patient is a 55-year-old male presenting to the emergency department with complaint of rash to right axilla for the past few days. States that he is concerned it could be shingles as he is over 55 years old. Denies fevers, denies pain. Reports rash is pruritic. Denies discharge or drainage. MD complaint: rash Onset (ago): day(s) Related Data Previous Rx's ?Medication ?Instructions ?Recorded lancets 28 gauge (OneTouch #150 ea 05/06/21 [employer]) blood-glucose meter (OneTouch #1 ea 05/07/21 Verio Flex Meter) lisinopril 20 mg tablet 20 mg PO DAILY 30 days #90 c aps 03/07/24 lancets 33 gauge #100 ea 08/06/24 polyethylene glycol 3350 17 gram 17 g PO DAILY 90 days #100 ea 10/23/24 oral powder packet (Miralax) sennosides 8.6 mg tablet (senna) 17.2 mg (2 x 8.6 mg) PO BEDTIME 11/22/24 PRN constipation #60 tabs sitagliptin phosphate 100 mg 100 mg PO DAILY #30 tabs 11/25/24 tablet (Januvia) blood sugar diagnostic (OneTouch #150 ea 12/05/24 Verio test strips) benzonatate 200 mg capsule 200 mg PO BID PRN cough #60 caps 02/12/25 albuterol sulfate 90 mcg/actuation 2 puff inhalation Q 4-6H PRN 02/17/25 aerosol inhaler shortness of breath or wheez ing #8.5 grams gabapentin 100 mg capsule 100 mg PO BEDTIME #30 caps 0 02/26/25 cholecalciferol (vitamin D3) 50 50 mcg PO DAILY 30 day s #30 caps 02/28/25 mcg (2,000 unit) capsule atorvastatin 40 mg tablet 40 mg PO DAILY #90 tabs 0811/22 pioglitazone 45 mg tablet 45 mg PO BEDTIME #90 tabs amoxicillin 875 mg-potassium 1 tab PO BID #10 tabs 09/ 08/25 clavulanate 125 mg tablet fluticasone propionate 50 1 spray intranasal BID #16 g jorge 04/07/25 mcg/actuation nasal spray,suspension semaglutide 0.25 mg or 0.5 mg (2 0.25 mg (0.368 mL) baron bcut QWEEK #3 04/07/25 mg/3 mL) subcutaneous pen injector mL (Ozempic) codeine 10 mg-guaifenesin 100 mg/5 10 ml PO Q4-6H PRN cough #120 mL 04/18/25 mL oral liquid doxycycline monohydrate 100 mg 100 mg PO BID 7 days #1 4 tabs 04/18/25 tablet empagliflozin 25 mg tablet 25 mg PO DAILY #30 tabs (Jardiance) doxycycline hyclate 100 mg capsule 100 mg PO BID #14 c aps 04/26/25 Allergies Allergy/AdvReac Type Severity Reaction Status Date / Time metformin Allergy Unknown Unknown Verified 04/26/25 11:29 Review of Systems 2 Review of Systems: As per HPI Yes all other systems are reviewed and are negative Constitutional: Constitutional: Reports as per HPI PMFSH Past Medical History Medical History Numbness Seizures Back pain Bronchitis Hyperlipidemia Diabetes type 2, uncontrolled Diabetic neuropathy associated with type 2 diabetes mellitus Hypertension Vitamin D deficiency Surgical History History of tonsillectomy Family History Family History Father Lung cancer Mother Pacemaker Maternal Grandmother Diabetes Brother CAD (coronary artery disease) Sister Hypertension Sister Myocardial infarction Sister Hearing problem Social History Social History Housing: Apartment Are you a primary healthcare business analyst to a significant other at home: No Do you presently have visiting nurse or other home services: No Alcohol intake: never Patient Tobacco Use Status: Never used Tobacco Tobacco use type: Cigarette e-Cigarette/Vaping Use: Never Used Second Hand Smoke Exposure: No service: No Current occupational status: unemployed and disabled Cognitive needs: No Hearing needs: No Vision needs: No Physical Exam ED Vital Signs: Vital signs have been reviewed and appear to be correct. Blood pressure normal. Heart rate normal. Respiratory rate normal. Temperature normal. Oxygen saturation normal. Const General: cooperative, healthy appearing and no acute distress Orientation/consciousness: oriented to person, oriented to place, oriented to time and patient oriented x3 Limitations: no limitations HENMT Head: Yes normocephalic and Yes atraumatic Ears: external ears normal General nose exam: Normal external nose present Face and sinus: Yes face symmetric Mouth: oropharynx normal and moist mucous membranes Throat: Yes uvula midline Eyes Pupils: Equal, round and reactive pupils present Neck Neck: Yes normal visual inspection and Yes supple Chest Chest/axillae images: 2 1. scattered pustules to right axilla, no drainage, no warmth Resp Effort & Inspection: normal respiratory effort and able to speak in complete sentences Auscultation: clear to auscultation bilaterally Cardio Rate: regular rate Rhythm: regular rhythm Heart sounds: S1 normal heart sound present and S2 normal heart sound present GI Palpation (GI): Soft to palpation and nontender Auscultation: normoactive bowel sounds General: Yes no CVA tenderness Back/Spine/Pelvis Back: no CVA tenderness Skin General skin exam: elasticity normal and turgor normal Neuro General: oriented to person, oriented to place, oriented to time, patient oriented x3, moves all extremities, no focal motor deficits and CN's II-XI intact bilaterally Cranial nerves: Yes Equal, round and reactive pupils present Cognition (Neuro): normal cognition Extrem General: Yes full ROM, Yes no pedal edema and Yes no calf tenderness Psych Mental Status: mental status grossly normal Affect: normal affect Thought process: Normal thought process present Medical Decision Making Medical Decision Making MDM Narrative: Patient is a 55-year-old male presenting to the emergency department with complaint of rash to right axilla for the past few days. On exam patient is awake, A+Ox3, VS WNL, afebrile, normal neurological exam without focal deficits, physical exam findings as above. Given reported symptoms and physical exam findings, initial differential includes but is not limited to folliculitis, contact dermatitis. Not consistent with shingles. No red flag findings concerning for TEN/SJS, DRESS, TTP/DIC, necrotizing fasciitis, meningococcemia, SSSS, TSS, anaphylaxis. Will treat with doxycycline. Follow up with PCP as needed. Return precautions discussed. Patient verbalized understanding of and agreement with plan. Differential Diagnosis Differential Diagnoses: The differential diagnosis associated with the presentation includes as per mdm Admission/Observation Consideration of admission/observation: Escalation of care including admission/observation considered Patient would have been admitted to the hospital and transferred to appropriate facility had their clinical presentation warranted hospital admission. External Record Review External record reviewed: Inpatient record, Office record and Outpatient record Prescription Management I considered prescription management with: Antibiotic Discharge Plan Discharge Clinical Impression: Folliculitis Patient Disposition: Home, Self-Care Instructions: Folliculitis (ED) Additional Instructions: You were evaluated in the emergency department today for a rash to your axilla (armpit). This rash is caused by infected hair follicles and you are being treated with a course of antibiotics. You should wash the area daily with warm water and soap. Allow the area to be open to air as much as possible. Follow up with your primary care provider. Return to the ED with worsening redness, swelling, or any other new or concerning symptoms. Prescriptions: New doxycycline hyclate 100 mg capsule 100 mg PO BID Qty: 14 0RF No Action (DME) lancets [OneTouch [employer] Lancing Dev] 28 gauge misc See Rx Instructions topical QID Qty: 150 11RF Rx Instructions: As directed Test blood glucose 4x per day. (DME) blood-glucose meter [OneTouch Verio Flex meter] Misc See Rx Instructions .Route Qty: 1 0RF Rx Instructions: to test blood glucose 4x/day lisinopril 20 mg tablet 20 mg PO DAILY 30 Days Qty: 90 4RF (DME) lancets 33 gauge misc See Rx Instructions .ROUTE .MEDSUPPLY Qty: 100 11RF Rx Instructions: 4x/day sennosides [senna] 8.6 mg tablet 17.2 mg PO BEDTIME PRN (Reason: constipation) Qty: 60 2RF Januvia 100 mg tablet 100 mg PO DAILY Qty: 30 4RF (DME) OneTouch Verio test strips Strip See Rx Instructions Not Applicable .MEDSUPPLY Qty: 150 11RF Rx Instructions: Freestyle lite test strips Test blood glucose 4xper day. #150 strips per 30days benzonatate 200 mg capsule 200 mg PO BID PRN (Reason: cough) Qty: 60 1RF albuterol sulfate 90 mcg/actuation HFA aerosol inhaler 2 puff inhalation Q4-6H PRN (Reason: shortness of breath or wheezing) Qty: 8.5 0RF gabapentin 100 mg capsule 100 mg PO BEDTIME Qty: 30 2RF cholecalciferol (vitamin D3) 50 mcg (2,000 unit) capsule 50 mcg PO DAILY 30 Days Qty: 30 4RF atorvastatin 40 mg tablet 40 mg PO DAILY Qty: 90 2RF pioglitazone 45 mg tablet 45 mg PO BEDTIME Qty: 90 3RF Jardiance 25 mg tablet 25 mg PO DAILY Qty: 30 0RF codeine-guaifenesin 10-100 mg/5 mL liquid 10 ml PO Q4-6H PRN (Reason: cough) Qty: 120 0RF doxycycline monohydrate 100 mg tablet 100 mg PO BID 7 Days Qty: 14 0RF polyethylene glycol 3350 [Miralax] 17 gram powder in packet 17 g PO DAILY 90 Days Qty: 100 3RF amoxicillin-pot clavulanate 875-125 mg tablet 1 tab PO BID Qty: 10 0RF Ozempic 0.25 mg or 0.5 mg (2 mg/3 mL) pen injector 0.25 mg subcut QWEEK Qty: 3 3RF Rx Instructions: for 4 weeks fluticasone propionate 50 mcg/actuation spray,suspension 1 spray intranasal BID Qty: 16 3RF Rx Instructions: administer into each nostril Print Language: Tamazight
--- OUTSIDE RECORDS SUMMARY | 2025-04-26 11:40 | XMS_ITS | Encounter Summary ---
Author Organization [employer] Address [address] [facility] [address] [place] [address] Care Team Providers Care Ror Engineer Name Role Phone Unavailable Primary Care Provider Unavailabl e Encounter Details Date Type Department Care Team ([facility] st Contact Info) Description 06/12/2023 Abstract [facility] [address] [place] [address] Deneen Dobson, DDS [address] [place] [address] Social History Tobacco Use Types Packs/Day Years [...]
--- OUTSIDE RECORDS SUMMARY | 2025-04-26 11:40 | XMS_ITS | Clinical Summary ---
Author Organization [employer] Address [address] [place] [address] [address] [place] [address] Care Team Providers Care Matrix Inspector Name Role Phone Unavailable Primary Care [...] Most Recently Relevant to Health Maintenance Insurance [facility]
--- OUTSIDE RECORDS SUMMARY | 2025-04-26 11:40 | XMS_ITS | Encounter Summary ---
Author Organization [employer] Address [address] [facility] 7t [place] [address] Care Team Providers Care Business Unit Leader Name Role Phone Unavailable Primary Care Provider Unavailabl e Reason for Visit * Reason Onset Date Comments Appointment 09/29/2022 Encounter Details Date Type Department Care Team (Late st Contact Info) Description 09/29/2022 Telephone [facility] ADULT DENTAL [address] [place] [address] Kathie Richards DDS Appointment Social History Tobacco [...]
--- OUTSIDE RECORDS SUMMARY | 2025-04-26 11:40 | XMS_ITS | Patient Health Record ---
Author Organization [facility] Address [address] [place] [address] Care Team Providers Care Jewelry Jobber Name Role Phone Tony Martinez Unavailable [phone] Reason For Referral No Information Plan Of Treatment No Information
--- OUTSIDE RECORDS SUMMARY | 2025-04-26 11:40 | XMS_ITS | Encounter Summary ---
Author Organization [employer] Address [address] [place] [address] [address] [place] [address] Care Team Providers Care Military Police Officer Name Role Phone Unavailable Primary Care Provider Unavailabl e Encounter Details Date Type Department Care Team (Latest Contact Info) Description 04/22/2022 Abstract [facility] CONVERSIONS Dental, Provider, DDS Social History [...]
--- OUTSIDE RECORDS SUMMARY | 2025-04-26 11:41 | XMS_ITS | Encounter Summary ---
Author Organization [employer] Address [address] [facility] [address] [place] [address] Care Team Providers Care Order Entry Clerk Name Role Phone Unavailable Primary Care Provider Unavailabl e Encounter Details Date Type Department Care Team (Latest Contact Info) Description 08/21/2019 Abstract [facility] CONVERSIONS Dental, Provider, DDS Social History [...]
--- OUTSIDE RECORDS SUMMARY | 2025-04-26 11:41 | XMS_ITS | Encounter Summary ---
Author Organization [employer] Address [address] [place] [address] [address] [place] [address] Care Team Providers Care Call Center Rn Name Role Phone Unavailable Primary Care Provider Unavailabl e Encounter Details Date Type Department Care Team (Latest Contact Info) Description 09/23/2020 Abstract [facility] CONVERSIONS Dental, Provider, DDS Social [...]
== END 2025-04-26 11:39 | disposition home or self-care (01) ==
PROVIDERS: Emergency Provider Emergency Medicine Emergency Medical Services
DX: L73.9 Follicular disorder, unspecified (principal); I10 Essential (primary) hypertension; E11.9 Type 2 diabetes mellitus without complications; Z79.899 Other long term (current) drug therapy
CPT/HCPCS: 99281; 99283

== ENCOUNTER 2025-04-30 14:29 | Outpatient (AMB) | payer OTHER, SELFPAY ==
[2025-04-30 14:38] VITALS: BP 100/60; PULSE 105; RESP 18; O2SAT 96; BMI 34.9
--- NOTE | 2025-04-30 14:38 | A.OFFPC_ITS ---
Vital Signs 04/30/25 14:38 Height 5 ft 10 in Weight 243 lb 8 oz BMI 34.9 BP 100/60 Blood Pressure Location Lt brachial Position Sitting Respiration 18 Pulse 105 H Pulse Source Pulse Oximeter Temp Source Temporal Artery Scan Pulse Oximetry (%) 96 Oxygen Delivery Method Room Air Intake Visit Reasons: 2 week f/u Mid Level Clinician Required: No Accompanied by: Self / Same As Patient Allergies metformin Allergy (Unknown, Verified 04/30/25 14:46) Unknown Medication List - Last Reconciled 04/30/25 by BRUCE Sams albuterol sulfate 90 mcg/actuation 2 puffs inhalation Q4-6H PRN NS amoxicillin-pot clavulanate 875-125 mg 1 tab PO BID atorvastatin 40 mg PO DAILY benzonatate 200 mg PO BID PRN blood sugar diagnostic ([employer] Verio test strips) Freestyle lite test strips Test blood glucose 4xper day. #150 strips per 30days blood-glucose meter (Brentwood InvestmentsTouch Verio Flex Meter) to test blood glucose 4x/day cholecalciferol (vitamin D3) 50 mcg PO DAILY 30 days codeine-guaifenesin 10-100 mg/5 mL 10 mL PO Q4-6H PRN doxycycline hyclate 100 mg PO BID doxycycline monohydrate 100 mg PO BID 7 days empagliflozin (Jardiance) 25 mg PO DAILY fluticasone propionate 50 mcg/actuation 1 spray intranasal BID gabapentin 100 mg PO BEDTIME lancets (B[employer] Invest[employer]Touch BellaboxSoft Lancing Devices) As directed Test blood glucose 4x per day. lancets 4x/day lisinopril 20 mg PO DAILY 30 days pioglitazone 45 mg PO BEDTIME polyethylene glycol 3350 (Miralax) 17 grams PO DAILY 90 days semaglutide (Ozempic) 0.25 mg (0.368 mL) subcut QWEEK sennosides (senna) 17.2 mg (2 x 8.6 mg) PO BEDTIME PRN sitagliptin phosphate (Januvia) 100 mg PO DAILY Tobacco use date assessed: 04/30/25 Dental Screening Dental Screen Date: 04/30/25 Did you have a dental visit in the last 12 months?: No Did you have a dental problem in the last 6 months where you did not have access to dental care?: No Was dental information given to patient?: No HPI 2 week f/u HPI Details The patient is a 55-year-old male presenting with persistent cough and management of chronic conditions. The patient reports a persistent cough that has not resolved with antibiotics, suggesting an allergic etiology. He has been referred to an tamping machine operator road forms for further evaluation and has been using nasal spray and cough medicine for symptomatic relief. The patient has a history of Type 2 Diabetes Mellitus and is currently on Ozempic. Despite medication, his blood sugar levels remain elevated, and dietary habits are being addressed as a contributing factor. . [facility] Medical History Numbness Seizures Back pain Bronchitis Hyperlipidemia Diabetes type 2, uncontrolled Diabetic neuropathy associated with type 2 diabetes mellitus Hypertension Vitamin D deficiency Surgical History History of tonsillectomy Family History Father Lung cancer Mother Pacemaker Maternal Grandmother Diabetes Brother CAD (coronary artery disease) Sister Hypertension Sister Myocardial infarction Sister Hearing problem Social History Housing: Apartment Are you a primary career professional to a significant other at home: No Do you presently have visiting nurse or other home services: No Alcohol intake: never Patient Tobacco Use Status: Never used Tobacco Tobacco use type: Cigarette e-Cigarette/Vaping Use: Never Used Second Hand Smoke Exposure: No service: No Current occupational status: unemployed and disabled Cognitive needs: No Hearing needs: No Vision needs: No Questionnaire Thrive Questionnaire Date Thrive assessed: 04/07/25 I am a: Patient What is your living situation today?: I choose not to answer this question Within the past 12 months, did the food you bought not last and you didn't have the money to get more?: Never true Within the past 12 months, did you worry whether your food would run out before you got money to buy more?: Never true Do you have trouble paying for medicines?: No Do you have trouble getting transportation to medical appointments?: Yes Do you have trouble paying your heating and electricity bill?: No Do you have trouble taking care of your child, family member or friend?: No Do you have trouble with day-to-day activities such as bathing, preparing meals, shopping, managing finances, etc.?: No Are you currently unemployed and looking for a job?: I choose not to answer this question Are you interested in more education?: I choose not to answer this question Please select the resources that you would like help with: Transportation Currently or been in a relationship where the following occur: I choose not to answer THRIVE Score: 1 GRICELDA-7 AMB Questionnaire GRICELDA-7 Date GRICELDA - 7 assessed: 04/07/25 Source: Developed by Drs. Tony Kelly, Maricarmen Ye, Jose Alvares and colleagues, with an educational osiel from [employer]. Review of Systems Const Reports as per HPI Eyes Denies loss of vision ENT Denies dizziness, Denies otalgia, Reports nasal congestion and Denies sore throat Card Denies chest pain, Denies leg edema and Denies dyspnea Resp Denies chest congestion, Reports cough, Reports excessive phlegm production, Denies dyspnea and Denies wheezing Neuro Denies dizziness and Denies loss of vision Aller/Immun Denies wheezing Physical exam (Primary Care) Vital Signs: Last Vital Signs Pulse 105 H 04/30/25 14:38 Resp 18 04/30/25 14:38 BP 100/60 04/30/25 14:38 Pulse Ox 96 04/30/25 14:38 Oxygen Delivery Method Room Air 04/30/25 14:38 BMI result Body Mass Index 34.9 Tobacco/Smoking Status: Tobacco use Status Tobacco use date assessed 04/30/25 04/30/25 14:43 Patient Tobacco Use Status Never used Tobacco 04/30/25 14:43 Tobacco use type Cigarette 04/30/25 14:43 e-Cigarette/Vaping Use Never Used 04/30/25 14:43 Thrive Assessment: Date of Thrive Assessment Date Thrive assessed 04/07/25 04/30/25 14:43 Currently or been in a relationship where the following occur: I choose not to answer Const General: cooperative Nutritional Appearance: obese Limitations: no limitations HENMT Head: Yes normal to inspection Ears: TM's normal bilaterally General nose exam: Abnormal mucous membranes and turbinates present erythematous bilateral Face and sinus: Yes normal facial exam Throat: Yes posterior oropharynx normal Eyes General: appearance normal, both eyes and all related structures Pupils: Equal, round and reactive pupils present Neck Neck: Yes no lymphadenopathy Thyroid: Thyroid normal Resp Effort & Inspection: Actively coughing Quality: dry Auscultation: clear to auscultation bilaterally Neuro Cranial nerves: Yes Equal, round and reactive pupils present Coding Level of Care Code Est Pt Level 3 (54737) Diagnoses Chronic cough R05.3 Uncontrolled type 2 diabetes mellitus with hyperglycemia E11.65 Glycemic state: with hyperglycemia Time Spent (min) 34 Assessment & Plan Assessment & Plan (1) Chronic cough: Code(s): R05.3 - Chronic cough Category: Medical Plan: The patient is referred to an tamping machine operator road forms for further evaluation of persistent cough suspected to be due to allergies. He is advised to continue using nasal spray and consider taking Claritin or Zyrtec daily for symptom management. (2) Diabetes type 2, uncontrolled: Code(s): E11.65 - Type 2 diabetes mellitus with hyperglycemia Category: Medical Qualifiers: Glycemic state: with hyperglycemia Qualified Code(s): E11.65 - Type 2 diabetes mellitus with hyperglycemia Plan: The patient is advised to monitor dietary intake closely and continue with Ozempic. Dietary habits are being addressed to improve blood sugar control, with an emphasis on reducing intake of non-lean foods. Orders: Referrals Allergy & Immunology Referral J32.9 - Chronic sinusitis, unspecified, R05.3 - Chronic cough, R09.81 - Nasal congestion Medications: New loratadine (Claritin) 10 mg PO DAILY PRN 30 tabs 3RF allergic symptoms
--- OUTSIDE RECORDS SUMMARY | 2025-04-30 15:39 | XMS_ITS | Encounter Summary ---
Author Organization [employer] Address [address] [facility] 7t [place] [address] Care Team Providers Care Cloth Winder Name Role Phone Unavailable Primary Care Provider Unavailabl e Encounter Details Date Type Department Care Team ([facility] st Contact Info) Description 06/12/2023 Abstract [facility] ADULT DENTAL [address] [place] [address] Deneen Dobson, DDS [address] [place] [address] Social History Tobacco Use Types Packs/Day Years [...]
--- OUTSIDE RECORDS SUMMARY | 2025-04-30 15:39 | XMS_ITS | Encounter Summary ---
Author Organization [employer] Address [address] [place] [address] [address] [place] [address] Care Team Providers Care Industrial Spraypainter Name Role Phone Unavailable Primary Care Provider Unavailabl e Encounter Details Date Type Department Care Team (Latest Contact Info) Description 09/23/2020 Abstract [facility] CONVERSIONS Dental, Provider, DDS Social [...]
--- OUTSIDE RECORDS SUMMARY | 2025-04-30 15:39 | XMS_ITS | Encounter Summary ---
Author Organization [employer] Address [address] [facility] 7t [place] [address] Care Team Providers Care Residential Program Coordinator Name Role Phone Unavailable Primary Care Provider Unavailabl e Reason for Visit * Reason Onset Date Comments Appointment 09/29/2022 Encounter Details Date Type Department Care Team (Late st Contact Info) Description 09/29/2022 Telephone [facility] ADULT DENTAL [address] [place] [address] Kathie Richards DDS Appointment Social History Tobacco [...]
--- OUTSIDE RECORDS SUMMARY | 2025-04-30 15:39 | XMS_ITS | Encounter Summary ---
Author Organization [employer] Address [address] [facility] [address] [place] [address] Care Team Providers Care Military Communications Specialist Name Role Phone Unavailable Primary Care Provider Unavailabl e Encounter Details Date Type Department Care Team (Latest Contact Info) Description 08/21/2019 Abstract [facility] CONVERSIONS Dental, Provider, DDS Social History [...]
--- OUTSIDE RECORDS SUMMARY | 2025-04-30 15:39 | XMS_ITS | Clinical Summary ---
Author Organization [employer] Address [address] [place] [address] [address] [place] [address] Care Team Providers Care Dredge Pipe Installer Name Role Phone Unavailable Primary Care Provider [...] [facility]
--- OUTSIDE RECORDS SUMMARY | 2025-04-30 15:39 | XMS_ITS | Encounter Summary ---
Author Organization [employer] Address [address] [place] [address] [address] [address] Care Team Providers Care Ivory Polisher Name Role Phone Unavailable Primary Care Provider Unavailabl e Encounter Details Date Type Department Care Team (Latest Contact Info) Description 04/22/2022 Abstract [facility] CONVERSIONS Dental, Provider, DDS Social [...]
== END 2025-04-30 15:05 | disposition home or self-care (01) ==
LOC: HO.HMCH 14:30
DX: R05.3 Chronic cough (principal); E11.65 Type 2 diabetes mellitus with hyperglycemia

== ENCOUNTER → 2025-04-30 14:29 | Outpatient (BNVA) | payer OTHER, SELFPAY | DX: R05.3 Chronic cough (principal); E11.65 Type 2 diabetes mellitus with hyperglycemia; J32.9 Chronic sinusitis, unspecified; R09.81 Nasal congestion; Z79.899 Other long term (current) drug therapy | CPT/HCPCS: 99212 ==

== ENCOUNTER → 2025-05-01 13:55 | Outpatient (BNVA) | payer OTHER, SELFPAY | DX: E11.9 Type 2 diabetes mellitus without complications (principal) | CPT/HCPCS: 99211 ==

== ENCOUNTER 2025-06-23 14:24 | Emergency (ER) | payer OTHER, SELFPAY ==
--- NOTE | ~2025-06-23 | XR_ITS ---
EXAMINATION: XR HAND, RIGHT CLINICAL INFORMATION: fourth finger pain COMPARISON: None available. TECHNIQUE: PA, lateral, and oblique views of the right hand. FINDINGS: No fracture, dislocation, or suspicious bone lesion. Normal bone mineralization. Normal alignment. Joint spaces are preserved. No significant arthropathy. No significant joint effusion. Soft tissues appear normal. XR/XR hand RT min 3V IMPRESSION: Normal right hand. Electronically signed by: Balta Jaimes MD 06/23/2025 02:51 PM HUSSEIN
[2025-06-23 14:29] VITALS: BP 110/74; PULSE 109; RESP 20; TEMP 36.3; O2SAT 97; BMI 32.6
--- NOTE | 2025-06-23 14:31 | ED.GENADULT ---
HPI - General Adult General Chief complaint: Extremity Problem Stated complaint: General Medical Time Seen by Provider: 06/23/25 15:07 Source: patient and RN notes reviewed Mode of arrival: ambulatory Limitations: no limitations History of Present Illness ED Provider: Gely Aranda PA-C HPI narrative: This is a 55-year-old male who presents emergency department for evaluation of right 4th digit pain. Patient with having his right 4th finger stuck in flexion and has to forcibly extend his finger back outwards. No known trauma or injury. He does have pain to the finger. He has no known trauma or injury. He is right-hand dominant. No other complaints or concerns at this time. MD complaint: Finger pain Onset (ago): day(s) Associated symptoms: denies other symptoms Treatments prior to arrival: none Related Data Previous Rx's ?Medication ?Instructions ?Recorded lancets 28 gauge (OneTouch #150 ea 05/06/21 SureSoft Lancing Devices) blood-glucose meter (OneTouch #1 ea 05/07/21 Verio Flex Meter) lancets 33 gauge #100 ea 08/06/24 polyethylene glycol 3350 17 gram 17 g PO DAILY 90 days #100 ea 10/23/24 oral powder packet (Miralax) sennosides 8.6 mg tablet (senna) 17.2 mg (2 x 8.6 mg) PO BEDTIME 11/22/24 PRN constipation #60 tabs sitagliptin phosphate 100 mg 100 mg PO DAILY #30 tabs 11/25/24 tablet (Januvia) blood sugar diagnostic (OneTouch #150 ea 12/05/24 Verio test strips) benzonatate 200 mg capsule 200 mg PO BID PRN cough #60 caps 02/12/25 cholecalciferol (vitamin D3) 50 50 mcg PO DAILY 30 days #30 caps 02/28/25 mcg (2,000 unit) capsule atorvastatin 40 mg tablet 40 mg PO DAILY #90 tabs 03/03/25 pioglitazone 45 mg tablet 45 mg PO BEDTIME #90 tabs 03/26/25 amoxicillin 875 mg-potassium 1 tab PO BID #10 tabs 04/07/25 clavulanate 125 mg tablet fluticasone propionate 50 1 spray intranasal BID #16 grams 04/07/25 mcg/actuation nasal spray,suspension codeine 10 mg-guaifenesin 100 mg/5 10 ml PO Q4-6H PRN cough #120 mL 04/18/25 mL oral liquid doxycycline monohydrate 100 mg 100 mg PO BID 7 days #14 tabs 04/18/25 tablet doxycycline hyclate 100 mg capsule 100 mg PO BID #14 caps 04/26/25 loratadine 10 mg tablet (Claritin) 10 mg PO DAILY PRN allergic 04/30/25 symptoms #30 tabs semaglutide 0.25 mg or 0.5 mg (2 0.5 mg (0.736 mL) subcut QWEEK #3 05/15/25 mg/3 mL) subcutaneous pen injector mL (Ozempic) empagliflozin 25 mg tablet 25 mg PO DAILY #30 tabs 05/24/25 (Jardiance) gabapentin 100 mg capsule 100 mg PO BEDTIME #30 caps 05/25/25 lisinopril 20 mg tablet 20 mg PO DAILY 30 days #90 caps 06/02/25 montelukast 10 mg tablet 10 mg PO DAILY #30 tabs 06/07/25 albuterol sulfate 90 mcg/actuation 2 puff inhalation Q4-6H PRN 06/19/25 aerosol inhaler shortness of breath or wheezing #8.5 grams acetaminophen 500 mg tablet 1,000 mg (2 x 500 mg) PO Q6H PRN 06/23/25 (Tylenol Extra Strength) pain #30 tabs ibuprofen 600 mg tablet 600 mg PO Q6H PRN pain #30 tabs 06/23/25 Allergies Allergy/AdvReac Type Severity Reaction Status Date / Time metformin Allergy Unknown Unknown Verified 06/23/25 14:32 Review of Systems Review of Systems: Constitutional : No Fever, No Chills ENT/Mouth : No sore throat, No Rhinorrhea Eyes: No Eye Pain, No Swelling, No Redness Cardiovascular : No Chest Pain, No SOB Respiratory : No Cough, No Sputum Gastrointestinal : No Nausea, No Vomiting, No Diarrhea, No abdominal Pain Genitourinary : No Dysuria, No Hematuria Musculoskeletal : No joint pain, No Myalgias, No Joint Swelling Skin : No Skin Lesions Neuro : No Weakness, No Numbness, No Headache All other systems reviewed and are negative Yes all other systems are reviewed and are negative Constitutional: Constitutional: Reports as per [facility] Past Medical History Medical History Numbness Seizures Back pain Bronchitis Hyperlipidemia Diabetes type 2, uncontrolled Diabetic neuropathy associated with type 2 diabetes mellitus Hypertension Vitamin D deficiency Surgical History History of tonsillectomy Family History Family History Father Lung cancer Mother Pacemaker Maternal Grandmother Diabetes Brother CAD (coronary artery disease) Sister Hypertension Sister Myocardial infarction Sister Hearing problem Social History Social History Housing: Apartment Are you a primary patient care representative to a significant other at home: No Do you presently have visiting nurse or other home services: No Alcohol intake: never Patient Tobacco Use Status: Never used Tobacco Tobacco use type: Cigarette e-Cigarette/Vaping Use: Never Used Second Hand Smoke Exposure: No Advance Directives: No Advance Directives Information Provided: No service: No Current occupational status: unemployed and disabled Cognitive needs: No Hearing needs: No Vision needs: No Physical Exam ED Exam Exam: General: Awake, alert, and oriented X3. No acute distress. HEENT: Normal inspection CVS: Normal heart rate and rhythm. Pulses normal. Respiratory: No respiratory distress Skin: Warm, dry, no rashes noted to exposed skin. Normal skin color. Normal skin turgor. Extremities: Right digit with no obvious bony deformity or swelling. Patient with full range of motion of the right 4th digit however finger gets stuck in a flexed position at the PIP. This causes him to forcibly extend his right finger to stopped the flexion. Sensation intact. Neuro: Oriented X 3. No motor deficit. No sensory deficit. Vital Signs: Vital Signs - 24 hr 06/23/25 14:29 06/23/25 15:42 Temperature 97.3 F 97.3 F Pulse Rate 109 H 109 H Respiratory Rate 20 20 Blood Pressure 110/74 110/74 Pulse Oximetry 97 97 Oxygen Delivery Method Room Air Room Air BMI result Body Mass Index 32.6 Medical Decision Making Medical Decision Making MDM Narrative: This is a 55-year-old male who presents emergency department with complaints of right 4th digit pain. No trauma or injury. Patient's 4th digit gets stuck in a flexed position. X-rays were obtained revealing no acute findings. Patient with notable trigger finger. Discussed findings with patient. His fingers placed in a finger splint. Given referral to Orthopedics. Given strict return precautions, patient stable for discharge. Differential Diagnosis Differential Diagnoses: The differential diagnosis associated with the presentation includes Trigger finger, flexor tenosynovitis, sprain, strain, fracture, dislocation Radiology Impression Discussion of test interpretation with radiology: I have reviewed the radiologist's reading. Radiologist Impression: FINDINGS: No fracture, dislocation, or suspicious bone lesion. Normal bone mineralization. Normal alignment. Joint spaces are preserved. No significant arthropathy. No significant joint effusion. Soft tissues appear normal. XR/XR hand RT min 3V IMPRESSION: Normal right hand. Electronically signed by: Balta Jaimes MD 06/23/2025 02:51 PM [facility] Dictated By: Balta Jaimes MD Discharge Plan Discharge Clinical Impression: Right trigger finger Patient Disposition: Home, Self-Care Instructions: Tenosynovitis (ED), Trigger Finger (ED) Additional Instructions: You were seen in the emergency department due to right 4th digit pain. Your x-rays do not show any broken bones or bony abnormalities. You have a condition called trigger finger. Trigger finger is a condition that prevents a finger from straightening normally. This happens when a tendon in the finger in a covering around it gets inflamed. Please use finger splint until you follow-up with the market specialist. Call to make an appointment. Ibuprofen and or Tylenol can be beneficial for your symptoms. Take as prescribed. If any new or worsening symptoms occur including but not limited to worsening pain, decreased sensation to your finger, please seek emergent care. Prescriptions: New ibuprofen 600 mg tablet 600 mg PO Q6H PRN (Reason: pain) Qty: 30 0RF acetaminophen [Tylenol Extra Strength] 500 mg tablet 1,000 mg PO Q6H PRN (Reason: pain) Qty: 30 0RF No Action (DME) lancets [[employer]Touch SureSoft Lancing Dev] 28 gauge misc See Rx Instructions topical QID Qty: 150 11RF Rx Instructions: As directed Test blood glucose 4x per day. (DME) blood-glucose meter [OneTouch Verio Flex meter] Misc See Rx Instructions .Route Qty: 1 0RF Rx Instructions: to test blood glucose 4x/day (DME) lancets 33 gauge misc See Rx Instructions .ROUTE .MEDSUPPLY Qty: 100 11RF Rx Instructions: 4x/day sennosides [senna] 8.6 mg tablet 17.2 mg PO BEDTIME PRN (Reason: constipation) Qty: 60 2RF Januvia 100 mg tablet 100 mg PO DAILY Qty: 30 4RF (DME) OneTouch Verio test strips Strip See Rx Instructions Not Applicable .MEDSUPPLY Qty: 150 11RF Rx Instructions: Freestyle lite test strips Test blood glucose 4xper day. #150 strips per 30days benzonatate 200 mg capsule 200 mg PO BID PRN (Reason: cough) Qty: 60 1RF cholecalciferol (vitamin D3) 50 mcg (2,000 unit) capsule 50 mcg PO DAILY 30 Days Qty: 30 4RF atorvastatin 40 mg tablet 40 mg PO DAILY Qty: 90 2RF pioglitazone 45 mg tablet 45 mg PO BEDTIME Qty: 90 3RF Ozempic 0.25 mg or 0.5 mg (2 mg/3 mL) pen injector 0.5 mg subcut QWEEK Qty: 3 3RF Rx Instructions: for 4 weeks Jardiance 25 mg tablet 25 mg PO DAILY Qty: 30 0RF gabapentin 100 mg capsule 100 mg PO BEDTIME Qty: 30 2RF lisinopril 20 mg tablet 20 mg PO DAILY 30 Days Qty: 90 3RF montelukast 10 mg tablet 10 mg PO DAILY Qty: 30 3RF albuterol sulfate 90 mcg/actuation HFA aerosol inhaler 2 puff inhalation Q4-6H PRN (Reason: shortness of breath or wheezing) Qty: 8.5 0RF doxycycline hyclate 100 mg capsule 100 mg PO BID Qty: 14 0RF codeine-guaifenesin 10-100 mg/5 mL liquid 10 ml PO Q4-6H PRN (Reason: cough) Qty: 120 0RF doxycycline monohydrate 100 mg tablet 100 mg PO BID 7 Days Qty: 14 0RF loratadine [Claritin] 10 mg tablet 10 mg PO DAILY PRN (Reason: allergic symptoms) Qty: 30 3RF polyethylene glycol 3350 [Miralax] 17 gram powder in packet 17 g PO DAILY 90 Days Qty: 100 3RF amoxicillin-pot clavulanate 875-125 mg tablet 1 tab PO BID Qty: 10 0RF fluticasone propionate 50 mcg/actuation spray,suspension 1 spray intranasal BID Qty: 16 3RF Rx Instructions: administer into each nostril Referrals: [facility] Orthopedic Surgeons [Provider Group] Interventions: ED Discharge Assessment Last Done: 06/23/25 15:42 Discharge Date/Time: 06/23/25 15:45 Print Language: Sudanese
[2025-06-23 15:42] VITALS: BP 110/74; PULSE 109; RESP 20; TEMP 36.3; O2SAT 97
== END 2025-06-23 15:45 | disposition home or self-care (01) ==
PROVIDERS: Emergency Provider Student in an Organized Health Care Education/Training Program
DX: M79.644 Pain in right finger(s) (principal); E11.9 Type 2 diabetes mellitus without complications; I10 Essential (primary) hypertension; E78.5 Hyperlipidemia, unspecified
CPT/HCPCS: 73130; 99283

== ENCOUNTER → 2025-06-23 14:34 | Outpatient (BNV) | payer OTHER, SELFPAY | PROVIDERS: Visit Provider Radiology Diagnostic Radiology | DX: M79.644 Pain in right finger(s) (principal) | CPT/HCPCS: 73130 ==

== ENCOUNTER 2025-07-08 13:23 | Outpatient (AMB) | payer OTHER, SELFPAY ==
--- NOTE | 2025-07-08 13:29 | A.OFFPC_ITS ---
Vital Signs 07/08/25 13:33 07/08/25 13:38 Height 6 ft 1 in Weight 249 lb 8 oz BMI 32.9 BP 110/54 L Blood Pressure Location Lt brachial Lt brachial Position Sitting Sitting Respiration 18 Pulse 102 H Pulse Source Pulse Oximeter Pulse Oximeter Temp Source Temporal Artery Scan Temporal Artery Scan Pulse Oximetry (%) 97 Oxygen Delivery Method Room Air Room Air Intake Visit Reasons: DM/obesity/hld Edge Inker Heels Required: No Accompanied by: Self / Same As Patient Allergies metformin Allergy (Unknown, Verified 07/08/25 13:54) Unknown Medication List - Last Reconciled 07/08/25 by BRUCE Sams acetaminophen (Tylenol Extra Strength) 1,000 mg (2 x 500 mg) PO Q6H PRN albuterol sulfate 90 mcg/actuation 2 puffs inhalation Q4-6H PRN NS amoxicillin-pot clavulanate 875-125 mg 1 tab PO BID atorvastatin 40 mg PO DAILY benzonatate 200 mg PO BID PRN blood sugar diagnostic (mobile mumuch Verio test strips) Freestyle lite test strips Test blood glucose 4xper day. #150 strips per 30days blood-glucose meter (mobile mumuch Verio Flex Meter) to test blood glucose 4x/day cholecalciferol (vitamin D3) 50 mcg PO DAILY 30 days codeine-guaifenesin 10-100 mg/5 mL 10 mL PO Q4-6H PRN doxycycline hyclate 100 mg PO BID doxycycline monohydrate 100 mg PO BID 7 days empagliflozin (Jardiance) 25 mg PO DAILY fluticasone propionate 50 mcg/actuation 1 spray intranasal BID gabapentin 100 mg PO BEDTIME ibuprofen 600 mg PO Q6H PRN lancets (TransporeonSoft Lancing Devices) As directed Test blood glucose 4x per day. lancets 4x/day lisinopril 20 mg PO DAILY 30 days loratadine (Claritin) 10 mg PO DAILY PRN montelukast 10 mg PO DAILY pioglitazone 45 mg PO BEDTIME polyethylene glycol 3350 (Miralax) 17 grams PO DAILY 90 days semaglutide (Ozempic) 0.5 mg (0.736 mL) subcut QWEEK sennosides (senna) 17.2 mg (2 x 8.6 mg) PO BEDTIME PRN sitagliptin phosphate (Januvia) 100 mg PO DAILY Tobacco use date assessed: 07/08/25 Dental Screening Dental Screen Date: 07/08/25 Did you have a dental visit in the last 12 months?: Yes Did you have a dental problem in the last 6 months where you did not have access to dental care?: No Was dental information given to patient?: Patient has dentist HPI HPI Comments History of Present Illness Details History of Present Illness The patient is a 55 year old male presenting for follow-up on several chronic issues including a trigger finger, chronic cough, and diabetes. He reports that a few days ago, his right fourth finger became painful and got stuck in a bent position, requiring him to use force to straighten it. He went to [facility] for this issue and was diagnosed with trigger finger. He has an appointment with an aviation medicine specialist on August 25 and was told the justina atment options could be physical therapy or surgery. The finger pain is significant enough to affect his daily activities, such as washing dishes. The patient has a history of chronic cough, which a previous doctor diagnosed as chronic bronchitis. He believes it is bronchitis, as it occurs year-round, not just seasonally, and he experiences what he calls coughing seizures. He manages the cough with an inhaler, which helps a little, and cough drops. He has also used cough medicine safe for patients with high blood pressure and diabetes, possibly Robitussin. Previous treatments with antibiotics have not resolved the cough. Regarding his diabetes, he is taking Ozempic 0.5 mg once weekly on Mondays. His blood sugar today was 168 mg/dL. He has been told his insurance will stop covering his current glucose meter and testing strips starting next year, and he will need a new meter. The patient also complains of back and hip pain. He performs some stretching and lifts light five-pound weights. He has a family history of arthritis from his mother. Health Maintenance - Cholesterol screening: The patient has not had his cholesterol checked and needs to go for a fasting lab draw. - Diabetes management: The patient is mo nitoring his blood glucose and is aware that his insurance coverage for his current meter and supplies will change next year. Social History - Housing: He lives in an apartment [facility] does not provide snow removal, requiring him to shovel, which is difficult due to his finger injury. - The [facility] also does not permit stephanie viera to have dishwashers. - Transportation: The patient has diffic ulty with transportation to appointments, considering some locations to be too far. - He can use a ride shuttle service for appointments in [place] but would find [place] or [place] difficult to access. - He also mentions that bus fares are cu rrently free. - Exercise: He performs some stretching and lifts light, five-pound weights. - Functional Status: The injury to his r ight ring finger impairs his ability to perform daily tasks like washing dishes. Results - Labs: - Point of Care Blood Glucose: 168 mg/dL . - Point of Care A1c: In-office test perf ormed, results pending at end of conversation. [facility] Medical History Numbness Seizures Back pain Bronchitis Hyperlipidemia Diabetes type 2, uncontrolled Diabetic neuropathy associated with type 2 diabetes mellitus Hypertension Vitamin D deficiency Surgical History History of tonsillectomy Family History Father Lung cancer Mother Pacemaker Maternal Grandmother Diabetes Brother CAD (coronary artery disease) Sister Hypertension Sister Myocardial infarction Sister Hearing problem Social History Housing: Apartment Are you a primary healthcare sales representative to a significant other at home: No Do you presently have visiting nurse or other home services: No Alcohol intake: never Patient Tobacco Use Status: Never used Tobacco Tobacco use type: Cigarette e-Cigarette/Vaping Use: Never Used Second Hand Smoke Exposure: No service: No Current occupational status: unemployed and disabled Cognitive needs: No Hearing needs: No Vision needs: No Questionnaire Thrive Questionnaire Date Thrive assessed: 07/08/25 I am a: Patient What is your living situation today?: I choose not to answer this question Within the past 12 months, did the food you bought not last and you didn't have the money to get more?: Never true Within the past 12 months, did you worry whether your food would run out before you got money to buy more?: Never true Do you have trouble paying for medicines?: No Do you have trouble getting transportation to medical appointments?: Yes Do you have trouble paying your heating and electricity bill?: No Do you have trouble taking care of your child, family member or friend?: No Do you have trouble with day-to-day activities such as bathing, preparing meals, shopping, managing finances, etc.?: No Are you currently unemployed and looking for a job?: I choose not to answer this question Are you interested in more education?: I choose not to answer this question Please select the resources that you would like help with: Transportation Currently or been in a relationship where the following occur: I choose not to answer THRIVE Score: 1 GRICELDA-7 AMB Questionnaire GRICELDA-7 Date GRICELDA - 7 assessed: 04/07/25 Source: Developed by Drs. Tony Kelly, Maricarmen Ye, Jose Alvares and colleagues, with an educational osiel from [employer]. Review of Systems Narrative Review of Systems - Respiratory: Reports chronic cough and use of an inhaler. - Notes some nasal stuffiness and has used a nasal spray in the past. - Musculoskeletal: Reports pain in his right fourth finger, which gets stuck in flexion. - Reports back and hip pain. - Gastrointestinal: Reports bowel movements are okay. - General: Reports sleeping okay. Const Reports as per HPI Eyes Denies loss of vision ENT Denies dizziness, Denies otalgia, Reports nasal congestion and Denies sore throat Card Denies chest pain, Denies leg edema and Denies dyspnea Resp Denies chest congestion, Reports cough, Reports excessive phlegm production, Denies dyspnea and Denies wheezing Musc Reports back pain and Reports arthralgias (Right 4th finger) Neuro Denies dizziness and Denies loss of vision Aller/Immun Denies wheezing Physical exam (Primary Care) Vital Signs: Last Vital Signs Pulse 102 H 07/08/25 13:38 Resp 18 07/08/25 13:38 BP 110/54 L 07/08/25 13:38 Pulse Ox 97 07/08/25 13:38 Oxygen Delivery Method Room Air 07/08/25 13:38 BMI result Body Mass Index 32.9 Tobacco/Smoking Status: Tobacco use Status Tobacco use date assessed 07/08/25 07/08/25 13:47 Patient Tobacco Use Status Never used Tobacco 07/08/25 13:31 Tobacco use type Cigarette 07/08/25 13:31 e-Cigarette/Vaping Use Never Used 07/08/25 13:31 Thrive Assessment: Date of Thrive Assessment Date Thrive assessed 07/08/25 07/08/25 13:47 Currently or been in a relationship where the following occur: I choose not to answer Narrative Physical Exam - Constitutional: General appearance is well. - Respiratory: Lungs are clear to auscultation bilaterally. - Endocrine: In-office A1c was obtained via fingerstick. Const General: cooperative Nutritional Appearance: obese Limitations: no limitations HENMT Head: Yes normal to inspection Ears: TM's normal bilaterally General nose exam: Abnormal mucous membranes and turbinates present erythematous bilateral Face and sinus: Yes normal facial exam Throat: Yes posterior oropharynx normal Eyes General: appearance normal, both eyes and all related structures Pupils: Equal, round and reactive pupils present Neck Neck: Yes no lymphadenopathy Thyroid: Thyroid normal Resp Effort & Inspection: Actively coughing Quality: dry Auscultation: clear to auscultation bilaterally Back/Spine/Pelvis Thoracic/Lumbar Spine: No lumbar spinal tenderness Neuro Cranial nerves: Yes Equal, round and reactive pupils present Extrem Right upper extremity: Extremity exam: right hand (4th finger(+ trigger finger)) Results AMB Hemoglobin A1c AMB Hemoglobin A1c 8.3 % Last Edit by Ade John MA on 07/08/25 14:30 Results Reviewed Results Reviewed: Laboratory Last Values Hgb A1c (Clinic) 8.3 % (4.0-6.0) H 07/08/25 14:04 Coding Level of Care Code Est Pt Level 4 (70319) Diagnoses Constipation, unspecified constipation type K59.00 Constipation type: unspecified constipation type Diabetes mellitus with coincident hypertension E11.9; I10 Essential hypertension I10 Hypertension type: essential hypertension Pure hypercholesterolemia E78.00 Hyperlipidemia type: pure hypercholesterolemia Vitamin D deficiency E55.9 Class 1 obesity with serious comorbidity and body mass index (BMI) of 32.0 to 32.9 in adult, unspecified obesity type E66.811; Z68.32 Body mass index: BMI 32.0-32.9 Obesity classification: adult class 1 (BMI 30 - 34.9) Obesity type: unspecified obesity type Serious obesity comorbidity presence: with serious comorbidity Trigger ring finger of right hand M65.341 Laterality: right Trigger finger location: ring finger Chronic cough R05.3 Allergic rhinitis, unspecified seasonality, unspecified trigger J30.9 Allergic rhinitis seasonality: unspecified Allergic rhinitis trigger: unspecified Lumbar muscle pain M79.18 Time Spent (min) 39 Assessment & Plan Assessment & Plan (1) Constipation: Code(s): K59.00 - Constipation, unspecified Category: Medical Qualifiers: Constipation type: unspecified constipation type Qualified Code(s): K59.00 - Constipation, unspecified Plan: Multifactorial. Sedentary lifestyle, poor fluid and fiber intake. Encourage patient to increase fluid intake in dietary fiber. Discussed with the patient that he could also purchase fiber gummies. In case if he does not want to take the miralax. Patient reports that he has been taking the MiraLax with positive effects. No longer gets constipated. (2) Diabetes mellitus with coincident hypertension: Code(s): E11.9 - Type 2 diabetes mellitus without complications; I10 - Essential (p rimary) hypertension Category: Medical Plan: a1c 8.3% today, decreased from 10% increased ozempic 1mg q wk Reinforced low sugar/carbohydrate diet and activity as tolerated The patient was also sent to the nurse navigator for diabetic teaching Continue Januvia 100 mg daily, pioglitazone 45 mg, Jardiance 25 mg daily We will recheck fasting glucose and A1c in 3 months (3) Hypertension: Code(s): I10 - Essential (primary) hypertension Category: Medical Qualifiers: Hypertension type: essential hypertension Qualified Code(s): I10 - Essential (primary) hypertension Plan: Blood pressure in office was 110/54 mm Hg Reinforced low-sodium diet Continue lisinopril 20 mg daily (4) Hyperlipidemia: Code(s): E78.5 - Hyperlipidemia, unspecified Category: Medical Qualifiers: Hyperlipidemia type: pure hypercholesterolemia Qualified Code(s): E78.00 - Pure hypercholesterolemia, unspecified Plan: No recent labs. Encourage patient to get ordered labs done rafael. Continue atorvastatin 40 mg daily (5) Vitamin D deficiency: Code(s): E55.9 - Vitamin D deficiency, unspecified Category: Medical Plan: Continue cholecalciferol 50 mcg daily (6) Obesity: Code(s): E66.9 - Obesity, unspecified Category: Medical Qualifiers: Body mass index: BMI 32.0-32.9 Obesity classification: adult class 1 (BMI 30 - 34.9) Obesity type: unspecified obesity type Serious obesity comorbidity presence: with serious comorbidity Qualified Code(s): E66.811 - Obesity, class 1; Z68.32 - Body mass index [BMI] 32.0-32.9, adult Plan: Reinforced low-calorie diet and increasing activity to aid in losing weight (7) Trigger finger: Code(s): M65.30 - Trigger finger, unspecified finger Category: Medical Qualifiers: Laterality: right Trigger finger location: ring finger Qualified Code(s): M65.341 - Trigger finger, right ring finger Plan: The patient reports episodes of his finger getting stuck. He was evaluated in the ER and was referred to orthopedics. Upon coming appt on the 25 of August. (8) Chronic cough: Code(s): R05.3 - Chronic cough Category: Medical Plan: The patient's chronic cough is refractory to antibiotics, suggesting a non- bacterial etiology such as allergies rather than chronic bronchitis. A referral was placed for the patient to see an sisal picker. Due to transportation concerns with the initial referral to a [place] or [place] office, a new referral will be sent to [facility] in [place], which the patient confirmed is accessible to him via a shuttle service. (9) Allergic rhinitis: Code(s): J30.9 - Allergic rhinitis, unspecified Category: Medical Qualifiers: Allergic rhinitis seasonality: unspecified Allergic rhinitis trigger: unspecified Qualified Code(s): J30.9 - Allergic rhinitis, unspecified Plan: Same as above (10) Lumbar muscle pain: Code(s): M79.18 - Myalgia, other site Category: Medical Plan: Intermittent back pain. He was encouraged to continue stretching to maintain function and prevent worsening of his symptoms. Continue gabapentin 100 mg at bedtime, ibuprofen 600 mg q.6 p.r.n. as needed. Encouraged the patient to only take ibuprofen infrequently, and to alternate this with acetaminophen a 1000 mg q.6 hours p.r.n.. Orders: Orders AMB Hemoglobin A1c 07/08/25 E11.65 - Type 2 diabetes mellitus with hyperglycemia Referrals Allergy & Immunology Referral J32.9 - Chronic sinusitis, unspecified, R05.3 - Chronic cough, R09.81 - Nasal congestion Medications: New semaglutide (Ozempic) 1 mg (0.75 mL) subcut QWEEK 3 mL 0RF Refilled acetaminophen (Tylenol Extra Strength) 1,000 mg (2 x 500 mg) PO Q6H PRN 30 tabs 0RF pain ibuprofen 600 mg PO Q6H PRN 30 tabs 0RF pain
[2025-07-08 13:38] VITALS: BP 110/54; PULSE 102; RESP 18; O2SAT 97; BMI 32.9
--- OUTSIDE RECORDS SUMMARY | 2025-07-08 18:50 | XMS_ITS | Clinical Summary ---
Author Organization [employer] Address [address] [place] [address] [address] [place] [address] Care Team Providers Care Retail Greeter Name Role Phone Unavailable Primary Care Provider [...] Most Recently Relevant to Health Maintenance Insurance [facility]
--- OUTSIDE RECORDS SUMMARY | 2025-07-08 18:50 | XMS_ITS | Encounter Summary ---
Author Organization [employer] Address [address] [place] [address] Care Team Providers Care Disintegrator Name Role Phone Unavailable Primary Care Provider Unavailabl e Encounter Details Date Type Department Care Team ([facility] st Contact Info) Description 06/12/2023 Abstract [facility] ADULT DENTAL [address] [place] [address] Deneen Dobson, DDS [address] [place] [address] Social History Tobacco Use Types Packs/Day Years [...]
--- OUTSIDE RECORDS SUMMARY | 2025-07-08 18:50 | XMS_ITS | Patient Health Record ---
Author Organization [facility] Address [address] [place] [address] Care Team Providers Care Ornamental Painter Name Role Phone Tony Martinez Unavailable [phone] Reason For Referral No Information Plan Of Treatment No Information
--- OUTSIDE RECORDS SUMMARY | 2025-07-08 18:51 | XMS_ITS | Encounter Summary ---
Author Organization [employer] Address [address] [place] [address] [address] [place] [address] Care Team Providers Care Industrial Renderer Name Role Phone Unavailable Primary Care Provider Unavailabl e Encounter Details Date Type Department Care Team (Latest Contact Info) Description 04/22/2022 Abstract [facility] CONVERSIONS Dental, Provider, DDS Social [...]
--- OUTSIDE RECORDS SUMMARY | 2025-07-08 18:51 | XMS_ITS | Encounter Summary ---
Author Organization [employer] Address [address] [place] [address] Care Team Providers Care Woven Wood Shade Assembler Name Role Phone Unavailable Primary Care Provider Unavailabl e Encounter Details Date Type Department Care Team (Latest Contact Info) Description 08/21/2019 Abstract [facility] CONVERSIONS Dental, Provider, DDS Social History [...]
--- OUTSIDE RECORDS SUMMARY | 2025-07-08 18:51 | XMS_ITS | Encounter Summary ---
Author Organization [employer] Address [address] [place] [address] Care Team Providers Care Clinical Laboratory Technologist Name Role Phone Unavailable Primary Care Provider Unavailabl e Reason for Visit * Reason Onset Date Comments Appointment 09/29/2022 Encounter Details Date Type Department Care Team (Late st Contact Info) Description 09/29/2022 Telephone [facility] ADULT D[facility]AL [address] [place] [address] Kathie Richards DDS Appointment Social History Tobacco [...]
--- OUTSIDE RECORDS SUMMARY | 2025-07-08 18:51 | XMS_ITS | Encounter Summary ---
Author Organization [employer] Address [address] [place] [address] [address] [place] [address] Care Team Providers Care Rubber Stamp Dies Inspector Name Role Phone Unavailable Primary Care Provider Unavailabl e Encounter Details Date Type Department Care Team (Latest Contact Info) Description 09/23/2020 Abstract [facility] CONVERSIONS Dental, Provider, DDS Social History Tobacco [...]
== END 2025-07-08 14:37 | disposition home or self-care (01) ==
LOC: HO.HMCH 13:24
DX: K59.00 Constipation, unspecified (principal); E11.9 Type 2 diabetes mellitus without complications; I10 Essential (primary) hypertension; E78.00 Pure hypercholesterolemia, unspecified; E55.9 Vitamin D deficiency, unspecified; E66.811 Obesity, class 1; Z68.32 Body mass index [BMI] 32.0-32.9, adult; M65.341 Trigger finger, right ring finger; R05.3 Chronic cough; J30.9 Allergic rhinitis, unspecified; M79.18 Myalgia, other site

== ENCOUNTER → 2025-07-08 13:23 | Outpatient (BNVA) | payer OTHER, SELFPAY | DX: I10 Essential (primary) hypertension (principal); E11.9 Type 2 diabetes mellitus without complications; K59.00 Constipation, unspecified; E78.00 Pure hypercholesterolemia, unspecified; E55.9 Vitamin D deficiency, unspecified; E66.811 Obesity, class 1; Z68.32 Body mass index [BMI] 32.0-32.9, adult; M65.341 Trigger finger, right ring finger; R05.3 Chronic cough; J30.9 Allergic rhinitis, unspecified; M79.18 Myalgia, other site | CPT/HCPCS: 83036; 99212 ==